=== PATIENT | female | born 2000 | race Caucasian/White ===

== ENCOUNTER 2023-01-25 09:49 | Emergency (ER) | payer BC, SELFPAY ==
[2023-01-25 09:50] VITALS: BP 113/82; PULSE 73; RESP 18; TEMP 36.6; O2SAT 99; BMI 21.4
--- NOTE | 2023-01-25 10:17 | CT_ITS ---
STUDY: CT BRAIN WITHOUT CONTRAST REASON FOR EXAM: Female, 22 years old. Severe headache RADIATION DOSAGE (If Supplied By Facility): CTDIvol = ( 47.06 ) mGy, DLP = ( 855.03 ) mGycm TECHNIQUE: Transaxial CT imaging of the brain was performed without administration of intravenous contrast material. Individualized dose optimization techniques were used for this CT. COMPARISON: No relevant priors. FINDINGS: Normal soft tissue structures. Normal calvarium. Normal size ventricles and extra-axial spaces for the patient''s age. Normal white matter tracts of the cerebral hemispheres. Normal basal ganglia and thalami. Normal brainstem. Normal cerebellum. There is no intracranial hemorrhage. There are no findings of an acute ischemic infarction. Normal visualized paranasal sinuses. CT/Brain/Head without Contrast IMPRESSION: Normal unenhanced CT scan of the brain. Electronically Signed: Pieter Dior MD at 11:04 EDT ,
--- NOTE | 2023-01-25 10:17 | EX.ED.VIS.HA ---
HPI History of Present Illness Chief Complaint: Headache Narrative Narrative: 22-year-old female with history of migraine headaches presenting with presumed migraine headache. She states that over the last month she has had increasing frequency and worsening severity of her headaches. She does see somebody from [facility] for her headaches. She has reported to them that her headaches are worsening now that she works third shift. She states that eating at different times of the day and her sleep style is giving her worsening headaches. She states that she has told her doctor that the sumatriptan is no longer working. She also states that since she has been placed on paroxetine she read somewhere that she not supposed to take sumatriptan with it. Patient does admit to photophobia and phonophobia. No fevers, chills, neck pain or stiffness. She had one episode of vomiting and feels nauseous. Denies any head trauma. [facility] Medical History Anxiety Migraine Home Medications ibuprofen 200 mg capsule 200 mg PO Q6H PRN 07/02/22 [History Last Taken Unknown] sumatriptan succinate 25 mg tablet See Rx Instructions PO .COMPLEX 07/02/22 [History Last Taken Unknown] Allergy/AdvReac Type Severity Reaction Status Date / Time citalopram [From Celexa] AdvReac Unknown UNKNOWN Verified 01/25/23 09:50 sertraline [From Zoloft] AdvReac Unknown UNKNOWN Verified 01/25/23 09:50 Family History Other Arthritis Cancer Hypertension Thyroid disorder Surgical History Hx of tonsillectomy Social History Smoking Status: Never smoker alcohol intake: never ROS ROS ED Constitutional Constitutional ED: Denies chills or fever(s) Eyes Eyes: Reports other Details: Photophobia ENT ENT ED: Reports other Details: Phonophobia Cardiovascular Cardiovascular: Denies chest pain Respiratory/Chest Respiratory/Chest: Denies cough or dyspnea Gastrointestinal Gastrointestinal: Reports nausea and vomiting; Denies abdominal pain Genitourinary Genitourinary ED: Denies dysuria or hematuria Musculoskeletal Musculoskeletal: Denies arthralgias Integumentary Denies abscess or Abrasions Neurologic Neurologic: Reports headache(s) Psychiatric Psychiatric: Reports anxiety and depression; Denies suicidal ideation or suicidal thoughts EXAM Physical Exam Const Vital Signs: 01/25/23 09:50 Temperature 97.8 F Temperature Source Temporal Pulse Rate 73 Respiratory Rate 18 Blood Pressure 113/82 H Blood Pressure Mean 92 Pulse Ox 99 Oxygen Delivery Method Room Air Positive well nourished General Appearance ED: NAD; Negative for pallor HEENT Reports normocephalic atraumatic Eyes PERRL and EOMs intact bilaterally Resp normal respiratory effort Auscultation: Negative for rales, rhonchi or wheezes Cardio regular rate and regular rhythm Extremity normal to inspection General Extremety ED: Negative for edema or tenderness General Extremity: Negative for edema Neuro oriented x3 and CN's II-XII intact bilaterally Stephen Coma Scale: document GCS findings Spontaneous Obeys Commands Oriented 15 Sensorium / Orientation: awake and alert Psych mental status grossly normal Skin General Skin Exam: Negative for jaundice or pallor MDM MDM MDM Narrative Medical decision making narrative: IV line was established. Patient given Reglan, Benadryl. I did obtain a CT of the brain because she states her headache is worse than usual and she has had repeated headaches this month. This was negative. She does believe it is due to her sleep schedule/work schedule. She has no focal neurologic deficits or lateralizing signs or symptoms. She does have photophobia, phonophobia. Patient given a liter of IV fluids as well. On reevaluation at 1225 she is doing well. She is resting comfortably here and she feels she can be discharged home. She states she will follow-up with her doctor for reevaluation. Return precautions were discussed. Impression: 1. Headache 2. Nausea Radiography Diagnostic Testing: Clinical Impression(s) from Imaging Studies Brain CT 01/25/23 10:17 IMPRESSION: Normal unenhanced CT scan of the brain. Electronically Signed: Pieter Dior MD at 11:04 EDT , Discharge Plan Triage Chief Complaint: Headache ED Provider: Avelino Pillai Dx/Rx/DC Orders Instructions: ED, Migraine (Classical) Prescriptions: No Action ibuprofen 200 mg capsule 200 mg PO Q6H PRN sumatriptan succinate 25 mg tablet See Rx Instructions PO .COMPLEX Rx Instructions: take 1 tab at onset of headache; if no relief may repeat 1 tab after at least 2 hrs; max = 4 tabs/24 hr PO Primary Care Provider: Care Physician,No Primary Referrals: Care Physician,No Primary [Primary Care Provider] - Disposition Disposition: Home, Self Care
[2023-01-25] MEDS: 0.9% Normal Saline 1,000 ML 999 ML IV (10:33)
[2023-01-25] MEDS: DiphenhydrAMINE 50 MG/ML Syringe 25 MG IV (10:34)
[2023-01-25] MEDS: Metoclopramide 10 MG/2 ML Vial IV (10:35)
[2023-01-25] MEDS: Ketorolac 15 MG/ML Vial IV (11:15)
== END 2023-01-25 12:40 | disposition home or self-care (01) ==
PROVIDERS: Emergency Provider Student in an Organized Health Care Education/Training Program; Visit Provider Student in an Organized Health Care Education/Training Program
DX: R51.9 Headache, unspecified (principal); R11.2 Nausea with vomiting, unspecified
CPT/HCPCS: 70450; 96374; 96375; 99283; A4216

== ENCOUNTER 2023-07-11 09:55 | Outpatient (RCR) | payer BC, SELFPAY ==
--- NOTE | 2023-07-11 10:00 | BH.COMM ---
Communication Note Communication with Client Communication Note: met with pt to complete initial paperwork. No significant changes since pre-admission screening. Completed [place] Suicide Screening. Low to moderate risk. Pt denies any active SI in the past 30 days, however reports frequent passive thoughts of and survival ambivalence. Protective factors. Future-oriented. Reports ability to keep self safe. Consulted with Dr. Bajwa with plan to admit to [facility] level of care with dx of F33.2
--- NOTE | 2023-07-11 10:10 | BH.SGPN.GN ---
Behaviors/Verbalizations/Mental Status: [] Eye contact is fair. Motor activity is appropriate. Appearance is casual. Speech is Appropriate. Mood is anxious. Affect is constricted. Thoughts are linear and logical. No evidence of psychosis. Client Response/Progress/Benefit: [] Client was an attentive during interactive group discussions by writing notes and sharing when prompted. Attentive during psychoeducation on the six types of boundaries (physical, emotional, intellectual, sexual, time, and material) AEB note-taking. Along with peers contributed to interactive discussion on defining what a boundary is in mental health. Client along with peers identified challenges to setting boundaries which included; fear of other's response, guilt, fear of losing relationships, and lack of confidence. Client along with peers identified the benefits to setting boundaries. Client shared she struggles with setting boundaries because she thinks to herself my boundaries haven't been respected before, why would it change?. Client benefited from increased awareness and insight on the importance/benefit to setting health boundaries. Will continue in IOP to improve daily functioning, increase healthy coping, and prevent decompensation.
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
[2023-07-13 09:44] VITALS: BP 119/73; PULSE 79
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
--- NOTE | 2023-07-13 12:02 | BH.DR.ITP ---
Initial Treatment Plan Patient Information Visit Information: ADMISSION DATE: EXPECTED LOS: 4-6 weeks Problems/Symptoms Problem #1:: Anxiety Symptom:: Worry, panic attacks, hypervigilance, flashbacks, nightmares, reexperiencing, avoidance Problem #2:: Depression Symptom:: Sadness, hopelessness, anhedonia, biological disruption of appetite and sleep, low energy, decreased concentration, passive thoughts of .
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
== END 2023-07-14 23:59 ==
LOC: BHIOP 09:55
PROVIDERS: Referring Provider Psychiatry & Neurology Psychiatry; Visit Provider Psychiatry & Neurology Psychiatry
DX: F33.2 Major depressive disorder, recurrent severe without psychotic features (principal); F43.10 Post-traumatic stress disorder, unspecified; F41.0 Panic disorder [episodic paroxysmal anxiety]; G43.909 Migraine, unspecified, not intractable, without status migrainosus; F50.2 Bulimia nervosa
CPT/HCPCS: S9480; 90853

== ENCOUNTER 2023-07-15 08:32 | Outpatient (RCR) | payer BC, SELFPAY ==
[2023-07-15 00:43] VITALS: BP 119/73; PULSE 79
--- NOTE | 2023-07-15 09:05 | BH.SGPN.GN ---
Behaviors/Verbalizations/Mental Status: [] Eye contact is good. Motor activity is appropriate. Appearance is casual. Speech is Appropriate. Mood is anxious. Affect is congruent. Thoughts are linear and logical. No evidence of psychosis. Reviewed daily check in sheet and no reports of suicidal ideations or intent. Client Response/Progress/Benefit: [] Pt participated at times during the group discussions. Attentive. Daily symptom tracker notes 2/5 for anxiety and depression, which is significant improvement from earlier this week. Emotion for today is steady at ease. She discussed stepping outside her comfort zone yesterday which proved to be very beneficial for her mental health. Notes decreased isolation, increased communication of her needs/struggles to support, and more social engagement. Insight on what coping strategies and skills were beneficial from yesterday and could be implemented in the future. Progress noted AEB by decreased isolation and self-report of improved mood. Benefited from group support, encouragment, and feedback. Will continue in IOP to prevent decompensation, increase healthy coping, and improve functioning. Narrative Note: []
--- NOTE | 2023-07-15 09:10 | BH.SGPN.GN ---
Behaviors/Verbalizations/Mental Status: [] Pt alert and oriented, neatly dressed and groomed. Eye contact good. Motor activity appropriate. Speech within normal limits. Affect congruent, mood anxious and proud. Thoughts linear, logical, no signs of hallucinations or delusions. Reviewed pt?s symptom tracker, no risk for suicidal ideation, plan, or intent 07/22/23 Client Response/Progress/Benefit: []Pt responded well to session, attentive and engaged. Pt reports feeling overwhelmed by proud this morning and per pt's daily symptom tracker, pt's depression has improved slightly today. Pt's mental health wins include asking for and accepting help more often and driving herself to IOP today. Pt is working with a ecommerce marketing manager through the courts and pt has found this to be very helpful as pt sparkle with ongoing legal stressors. Pt reported she has been ruminating a lot lately and pt wants to work on grounding herself. Pt appeared to benefit from connecting with peers and reflecting on her use of coping skills. Pt will continue IOP tx to prevent decompensation, improve daily functioning, and reduce negative thinking patterns. Narrative Note: []
--- NOTE | 2023-07-15 10:10 | BH.SGPN.GN ---
Behaviors/Verbalizations/Mental Status: []Pt alert and oriented, casually dressed and groomed. Eye contact fair. Motor activity appropriate. Speech within normal limits. Affect congruent, mood anxious. Thoughts linear, logical, no signs of hallucinations or delusions. Client Response/Progress/Benefit: [] Pt receptive to session AEB contributing to small group discussion, as well as listening attentively to others, and taking notes. Worked with group to brainstorm the positive and negative aspects of stress on physical and mental health. Group did well to identify the benefits of stress as well as the impact of distress on performance, relationships, and mental health. Pt identified their personal top stressors as: counseling, court, food, and trauma. Pt seemed to benefit from increased awareness of current stressors and impact stress has on mental health. Recommended to continue IOP tx to increase healthy coping, improve daily functioning, and prevent decompensation.
--- NOTE | 2023-07-15 11:15 | BH.SGPN.GN ---
Behaviors/Verbalizations/Mental Status: []Pt alert and oriented, casually dressed and groomed. Eye contact good. Motor activity appropriate. Speech within normal limits. Affect congruent, mood anxious. Thoughts linear, logical, no signs of hallucinations or delusions. Client Response/Progress/Benefit: []Pt was an active participant in group discussions and experiential activity. Attentive during psychoeducation on the 4 A's (Avoid, adapt, alter, accept) of coping with stress as well as strategies to identify stressors in which one has no control, little control, or a great deal of control over. Was able to identify the connection between the experimental activity and utilization of stress management skills. Pt reported feeling anxious during the activity and pt tried to withdraw, but when encouraged to participate despite anxiety, she did. Pt shared opposite action helped and pt was glad she tried. The group linked effective communication and opposite action as the biggest strategies for managing stressors. Benefited from increased awareness of stress management strategies. Will continue in IOP to prevent decompensation, improve daily functioning, and increase self-confidence. Narrative Note: []
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
--- NOTE | 2023-07-19 10:10 | BH.SGPN.GN ---
Behaviors/Verbalizations/Mental Status: [] Client alert and oriented, casually dressed and groomed. Eye contact fair. Motor activity appropriate. Speech within normal limits. Affect constricted, anxious and tired. Thoughts linear, logical, no signs of hallucinations or delusions Client Response/Progress/Benefit: [] Client was a mostly passive participant in large group discussion, however showed increased engagement in small group discussion and experiential activity. Attentive during psychoeducation on resilience. Participated in interactive discussion with peers on the definition of resilience and where it comes from. Group identified what can impact resilience. Identified barriers to resilience to include: extreme thinking, outside comfort zone, learned helplessness, and repeated traumas/hardships. Worked well with peers in small group in which they identified factors that contribute to resilience. Benefited from increased awareness of resilience and the factors that contribute to building resilience. Will continue in IOP to increase confidence, challenge negative thinking, and prevent decompensation.
--- NOTE | 2023-07-19 11:10 | BH.SGPN.GN ---
Behaviors/Verbalizations/Mental Status: []Pt alert and oriented, casually dressed and groomed. Eye contact good. Motor activity appropriate. Speech soft. Affect constricted, mood anxious. Thoughts linear, logical, no signs of hallucinations or delusions. Client Response/Progress/Benefit: []Pt responded well to session AEB completing the resilience worksheet provided. Pt actively participated in the discussion and worked cooperatively with group to identify strategies to enhance each of the components discussed. Pt reports belief they already use resilience trait of ?making connections? which pt shared helps her feel not alone or crazy. Pt discussed that they could work on keeping things in perspective and nurturing a positive view of self.? Pt seemed to benefit from discussing strategies for improving personal resilience and identifying resilience traits Pt already possesses. Will continue IOP tx prevent decompensation, improve daily functioning, and increase self-compassion. Narrative Note: []
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
--- NOTE | 2023-07-20 09:01 | BH.SGPN.GN ---
Behaviors/Verbalizations/Mental Status: []Pt alert and oriented, casually dressed and groomed. Eye contact fair. Motor activity appropriate. Speech within normal limits. Affect congruent, mood anxious. Thoughts linear, logical, no signs of hallucinations or delusions. Reviewed pt?s symptom tracker, no suicidal ideation reported, denies plan, or active intent. Client Response/Progress/Benefit: []Pt responded well to session, open to processing with group and engaged. Pt reported mental health positive as getting up today and making it to IOP despite having thoughts of not coming. Pt stated additional mental health win as making a floating bed frame with her. Pt stated she finally slept on a bed last night and noticed improvement in her rest. Pt stated she is struggling today because court is happening and she isn't sure what the result will be. Pt stated she feels like anytime she starts to move forward something from her past gets brought back up which can make her go several steps back. Pt stated she's trying to focus on what's in her control today. Pt appeared to benefit from supportive feedback of the group, as well as reflecting on mental health wins. Pt will continue IOP tx to continue use of healthy coping skills, challenge negative thoughts, improve confidence, and prevent decompensation.
--- NOTE | 2023-07-20 10:10 | BH.SGPN.GN ---
Behaviors/Verbalizations/Mental Status: [] Eye contact is good. Motor activity is appropriate. Appearance is casual. Speech is Appropriate. Mood is anxious. Affect is congruent. Thoughts are linear and logical. No evidence of psychosis. Client Response/Progress/Benefit: [] Client responded well to session, attentive to discussions, taking notes. Attentive during psychoeducation about social and perceived stigma. Participated during interaction discussions in which group defined stigma and identified the impact that social stigma and self stigma can have on an individual. Pt provided examples of stigma impacted her and prevent her from healthy relationships, feeling good, and believing in myself. Stigma often led her to tell herself I'm crazy, will never be happy, don't' deserve love, and I'm fragile. Client seemed to benefit from increased awareness of how mental health stigma can impact progress and self-worth. Will continue in IOP to prevent decompensation, maintain safety, increase healthy coping, and improve functioning. Narrative Note: []
--- NOTE | 2023-07-20 11:12 | BH.SGPN.GN ---
Behaviors/Verbalizations/Mental Status: []Client alert and oriented, casually dressed and groomed. Eye contact good. Motor activity appropriate. Speech within normal limits. Affect congruent, mood anxious and depressed. Thoughts linear, logical, no signs of hallucinations or delusions. Client Response/Progress/Benefit:?[] Client engaged participant AEB participating in the activity, providing input during small group discussion, and listening attentively to others. Client appeared to connect with discussion in the benefits of addressing mental health stigma which included: improved relationships, increased willingness to seek help, increased happiness, and improved confidence. Group brainstormed strategies to combat social and perceived stigma. ?Client shared one thing she can personally do to combat stigma is to remind herself she is not alone in struggling with her mental health. Appeared to benefit from increasing awareness of strategies to combat stigma. Will continue IOP tx to continue to reduce anxiety, improve emotion regulation and prevent decompensation. Narrative Note: []
--- NOTE | 2023-07-22 10:15 | BH.SGPN.GN ---
Behaviors/Verbalizations/Mental Status: []Pt alert and oriented, casually dressed and groomed. Eye contact good. Motor activity appropriate. Speech within normal limits. Affect congruent, mood depressed, anxious. Thoughts linear, logical, no signs of hallucinations or delusions. Client Response/Progress/Benefit: []Pt receptive of session, actively engaged throughout AEB taking notes and listening to discussion. Appeared to connect with group topic of cognitive distortions and the impact of thought patterns on mental health, coping behaviors, and relationships. Pt reports connecting with distortions of jumping to conclusions, overgeneralization, labeling, and emotional reasoning. Pt stated she struggles with negative labels based on negative core beliefs and past toxic relationships, which then maintain depression and anxiety. Pt appeared to benefit from gaining insight on distorted thinking patterns and how this impacts overall mental health. Will continue IOP tx to improve self-esteem, increase healthy coping, and prevent decompensation. Narrative Note: []
--- NOTE | 2023-07-22 11:15 | BH.SGPN.GN ---
Behaviors/Verbalizations/Mental Status: [] Eye contact is good. Motor activity is within normal limits. Appearance is casual. Speech is Appropriate. Mood is depressed and anxious. Affect is congruent. Thoughts are linear and logical. No evidence of psychosis. Client Response/Progress/Benefit: [] Pt was an active participant during group discussions and activity. Pt was placed in a smaller group and participated in quiz-show format in which small groups competed against each-other to answer questions based on identifying, challenging, and reframing cognitive distortions. Pt was engaged in the smaller group, participated in group interactions to brainstorm answers, and appeared to be comprehending cognitive distortions. Stated learning that ?disqualifying the positive leads me to continue to struggle with thinking I'm not good enough or don't deserve things?. Benefited from gaining further insight and awareness of cognitive distortions as well as practicing ways to reframe and challenge thoughts. Will continue in IOP to improve self-worth, stabilize mood, and increase healthy coping skills. Narrative Note: []
--- NOTE | 2023-07-26 09:05 | BH.SGPN.GN ---
Behaviors/Verbalizations/Mental Status: [] Eye contact is good. Motor activity is appropriate. Appearance is casual. Speech is Appropriate. Mood is anxious. Affect is congruent. Thoughts are linear and logical. No evidence of psychosis. Reviewed daily check in sheet and no reports of suicidal ideations or intent. Client Response/Progress/Benefit: [] Pt participated at times during the group discussions. Attentive. Emotion for today is happy. Pt reports that she is very proud of herself. She was able [place] the [place] and has been consistent with treatment and medication. She believes that she is beginning to see the benefits as well. Decreased isolation, ruminations, and anxiety. Also discussed challenging mental health stigma associated with being in treatment and taking medications. When you are prescribed medications for mental illness its gets real. In the past developed distortions that if she wasn't on medications than she didn't struggle with mental illness. In recent days has begun to accept her diagnosis. Progress noted per pt report AEB by decreased anxiety and isolation. Benefited from group support, encouragement, and feedback. Will continue in IOP to maintain safety, stabilize mood, increase healthy coping, and improve functioning. Narrative Note: []
--- NOTE | 2023-07-26 10:20 | BH.SGPN.GN ---
Behaviors/Verbalizations/Mental Status: []Pt alert and oriented, casually dressed and groomed. Eye contact good. Motor activity appropriate. Speech within normal limits. Affect congruent, mood anxious and euthymic. Thoughts linear, logical, no signs of hallucinations or delusions. Client Response/Progress/Benefit: []Pt was an active participant, AEB taking notes and providing input in group discussions and activities. Attentive during psychoeducation. Pt engaged during interactive discussion in which the group defined self-care and discussed its benefits. Group discussed barriers to engaging in self-care. Pt identified personal barrier of telling herself that she doesn't deserve it or that self-care is selfish which keeps pt from practicing self-care. Pt participated in small groups where they worked to identify common self-care ?myths?. Benefited from increased awareness of self-care, its benefits, and the consequences of not utilizing self-care strategies. Will continue IOP tx to prevent decompensation, promote positive self-talk, and continue to improve mood stability. Narrative Note: []
--- NOTE | 2023-07-26 11:15 | BH.SGPN.GN ---
Behaviors/Verbalizations/Mental Status: []Pt alert and oriented, neatly dressed and groomed. Eye contact good. Motor activity appropriate. Speech within normal limits. Affect congruent, mood anxious and euthymic. Thoughts linear, logical, no signs of hallucinations or delusions. Client Response/Progress/Benefit: [] Pt engaged participant AEB completing self-assessment worksheet and providing input throughout discussion. Pt completed worksheet identifying current self-care practices and what self-care activities pt wants to start using. Pt selected psychological self-care to begin practicing more consistently. Pt plans to do this by setting a time limit for snapchat and TV shows. Appeared to benefit from completing the self-care evaluation and gaining insights into current self-care practices, as well as identifying areas in which pt would like to improve upon.? Pt will continue IOP tx to prevent decompensation, improve emotional regulation skills, and increase self-confidence. ? Narrative Note: []
--- NOTE | 2023-07-27 09:05 | BH.SGPN.GN ---
Behaviors/Verbalizations/Mental Status: []Pt alert and oriented, casually dressed and groomed. Eye contact good. Motor activity appropriate. Speech within normal limits. Affect congruent, mood dysthymic and anxious. Thoughts linear, logical, no signs of hallucinations or delusions. Reviewed pt?s symptom tracker, no suicidal ideation reported, denies plan, or active intent as of 07/27/23. Client Response/Progress/Benefit: [] Pt responded well to session, open to processing with group and engaged. Pt reports feeling hopeful this morning. Shared her current mental health wins included making time for self-care and getting her hair trimmed. Additional win noted as more consistently reaching out to healthy supports. Shared taking time to connect with supports has helped with reducing negative thoughts and improving her overall mood. Went on to discuss current stressor as feeling as though she doesn't deserve to start feeling happy again and is struggling with a sense of waiting for the other shoe to drop. Receptive of group support and fellow participants describing their own struggles with similar thoughts/emotions. Connected with some of the skills provided by other group members to combat these distortions. Pt appeared to benefit from supportive feedback of the group, as well as reflecting on mental health wins. Pt will continue IOP tx to promote mood stability, continue to encourage skill application for anxiety management, as well as continue to improve functioning. Narrative Note: []
--- NOTE | 2023-07-27 11:15 | BH.SGPN.GN ---
Behaviors/Verbalizations/Mental Status: []Pt alert and oriented, neatly dressed and groomed. Eye contact good. Motor activity appropriate. Speech within normal limits. Affect congruent, mood anxious. Thoughts linear, logical, no signs of hallucinations or delusions. Client Response/Progress/Benefit: [] Pt was an active participant AEB providing input and was actively taking notes. Connected with the topic of pitfalls and listened to group discussion on internal and external barriers that prevent from choosing a healthier path to mental wellness. Group worked together to identify examples of personal internal pitfalls and pt identified theirs as lack of self-care, isolation, negative self-talk, and holding back emotions. Pt benefited from group as Pt learned to better identify and normalize potential barriers to improving mental health symptoms. Pt did well during the activity, reporting feeling stressed, but practiced healthy coping skills. Pt will continue IOP tx to prevent decompensation, further reduce negative thinking patterns, and improve self-confidence. Narrative Note: []
--- NOTE | 2023-07-27 11:20 | BH.SGPN.GN ---
Behaviors/Verbalizations/Mental Status: []Pt alert and oriented, casually dressed and groomed. Eye contact fair. Motor activity appropriate. Speech within normal limits. Affect congruent. Mood anxious. Thoughts linear, logical, no signs of hallucinations or delusions. Client Response/Progress/Benefit: []Pt was an active participant AEB contribution to discussion, taking notes, and willingness to engage in group activity. Connected with the topic of pitfalls and listened to group discussion on internal and external barriers that prevent from choosing a healthier path to mental wellness. Group worked together to identify examples of internal pitfalls. Pt identified personal pitfalls. Pt reported wanting to work on pitfall of holding back emotions. Pt identified strategies that can help her to include: self help journals and books, using happy colors stickers, talking to those close about how she feels, acceptance of her feelings, and reminding self she's not alone. Pt benefited from group as pt learned to better identify and normalize potential barriers to improving mental health symptoms. Pt to continue IOP to increase healthy coping skills, challenge distortions, and prevent decompensation.
--- NOTE | 2023-07-27 12:35 | PCM.BH.PN_ITS ---
Progress Note Progress Note: History of Present Illness/Interim History: The patient is a 22-year-old female single with a history of anxiety and depression who is seen in follow- up at the [facility]. I last saw the patient 2 weeks ago and at that time Paxil was started to help with her depression and anxiety. Patient is tolerating the Paxil well. She feels she is learning valuable skills in the IOP program and is benefiting from it. She feels more alive and states that people around her have noticed that she is better also. Her sleep is also much better and if she is getting a good 6 hours of sleep a night. She is having some flashbacks from her prior trauma which does call or cause her to feel panicked but they are happening less often than before. She has had much less passive thoughts that she would not care if she . She denies plan for suicide, suicidal ideation, homicidal ideation, hallucinations or delusions. She has been able to function much better and drove herself to the fair and was able to try ax throwing which she was too anxious to try before. She was also able to reach up to an old friend and reconnect. Current Psychiatric Medications: [] Paxil 10 mg p.o. daily (x2 weeks); hydroxyzine 20 fill 5 mg p.o. as needed for panic attacks; hydroxyzine 50 mg p.o. nightly. Mental Status Examination: [] The patient is a 22-year-old female who appears normal for stated age and has her hair dyed red in part. She is ambulatory with a normal gait and is casually dressed and groomed with good hygiene. She has no psychomotor agitation or retardation. Eye contact is good and speech is normal rate and rhythm and fluent with no pressure. Mood is mildly depressed and anxious. Affect is full and normal. Thought process is goal-directed and organized. Thought content: There is evidence of passive thoughts of only on occasion now. There is no evidence of plan for suicide, suicidal ideation, homicidal ideation, hallucinations or delusions. The patient is hopeful for the future. Reality testing is intact. Judgment is intact. Insight is good. Impulsivity is moderate. Diagnoses: [] 1. Major depressive disorder, recurrent, severe without psychosis (improving) 2. PTSD 3. Panic disorder 4. Migraine headaches 5. History of bulimia nervosa 6. Support and work issues Plan: [] The patient will continue the IOP program at [facility] as the structure, support, education and group therapy will hopefully prevent worsening of the patient's symptoms. She felt safe during the interview and if it anytime she does not feel safe she will let us know or go to the emergency room. No medication changes were made today as the patient has only been taking the Paxil for 2 weeks. The patient will continue to follow-up with her outpatient providers and I will see the patient in follow-up in 2 weeks.
--- NOTE | 2023-07-29 09:44 | BH.COMM ---
Communication Note Communication with Client Communication Note: Pt scheduled for individual and group therapy on this date however did not show or call to cancel. Pt phone went straight to voicemail when attempting to follow-up. A discreet message was left encouraging her to reach out.
--- NOTE | 2023-07-29 10:38 | BH.COMM ---
Communication Note Communication with Client Communication Note: Pt called to follow-up on missing IOP group today. Stated she took her medication later than usual and believes this caused her to oversleep. Shared feeling lightheaded as well and does not feel comfortable driving. Reports plans to rest some more today and attend IOP group on Tuesday. Will continue to monitor if pt has ongoing sx and address as needed.
--- NOTE | 2023-08-01 08:56 | BH.COMM ---
Communication Note Communication with Client Communication Note: Pt scheduled for group and individual sessions on this date however did not show or call to cancel. Therapist attempted to reach out but pt did not answer. A message was left encouraging pt to return this therapist's call.
--- NOTE | 2023-08-02 10:15 | BH.SGPN.GN ---
Behaviors/Verbalizations/Mental Status: []Pt alert and oriented, casually dressed and groomed. Eye contact good. Motor activity appropriate. Speech within normal limits. Affect congruent, mood depressed. Thoughts linear, logical, no signs of hallucinations or delusions. Client Response/Progress/Benefit: [] Pt engaged in session AEB listening attentively to others and providing insight to group discussion. Pt engaged in activity, able to connect how it can be uncomfortable and difficult to accept when things are out of one?s own control. Pt worked with group to identify what things in life can be hard to accept. Group identified things hard to accept as: of a loved one, body image, loss of relationship, mental health diagnosis, other?s behaviors, and past decisions. Pt worked on identifying what personal things are hard to accept such as ?knowing I don?t treat myself right? and being wrong. Pt seemed to benefit from increased awareness of importance of acceptance. Pt to continue IOP to improve mood stability, increase self-confidence, and improve daily functioning. Narrative Note: []
--- NOTE | 2023-08-02 11:15 | BH.SGPN.GN ---
Behaviors/Verbalizations/Mental Status: []Pt alert and oriented, casually dressed and groomed. Eye contact fair to good. Motor activity appropriate. Speech within normal limits. Affect congruent, mood anxious and depressed. Thoughts linear, logical, no signs of hallucinations or delusions. Client Response/Progress/Benefit: []Pt responded well to session AEB taking notes and contributing to discussion throughout. Pt engaged as group continued discussion on acceptance and the mental health benefits of practicing acceptance. Pt and peers identified what makes acceptance challenging and pt completed a self-reflection exercise on what is hard to accept in pt's life. Pt identified struggling to accept My parents/family for who they are? Group identified strategies to increase acceptance and pt shared wanting to focus on practicing giving herself credit for small steps she is making as well as utilizing dialects to aid in accepting complicated emotions about family. Pt appeared to benefit from gaining insight and learning strategies to increase acceptance. Pt will continue IOP tx to promote mood stability, continue to combat distortions, and prevent decompensation. Narrative Note: []
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
--- NOTE | 2023-08-03 09:05 | BH.SGPN.GN ---
Behaviors/Verbalizations/Mental Status: [] Pt alert and oriented, neatly dressed and groomed. Eye contact good. Motor activity appropriate. Speech within normal limits. Affect congruent, mood euthymic. Thoughts linear, logical, no signs of hallucinations or delusions. Reviewed pt?s symptom tracker, no risk for suicidal ideation, plan, or intent 08/03/23 Client Response/Progress/Benefit: []Pt responded well to session, attentive and engaged. Pt reports feeling relieved this morning, sharing that she was reminded today that my co-workers really do love and care about me. Pt also stated that her mother was cheerful today and put pt in a good mood before coming to IOP this morning. Pt also woke up early and got to IOP on time which reduced anxiety. Pt's stressor today is how happy I feel as pt struggles with negative thinking patterns and believes that if she is happy, something bad will happen to change that. Group provided pt with encouragement to challenge these thoughts. Pt reports benefitting from using opposite action lately. Pt appeared to benefit from reflecting on application of skills. Pt will continue IOP tx to reduce negative thinking patterns that reinforce anxiety and depression, increase self-esteem, and improve daily functioning. Narrative Note: []
--- NOTE | 2023-08-03 10:10 | BH.SGPN.GN ---
Behaviors/Verbalizations/Mental Status: []Pt alert and oriented, appropriate grooming/appearance. Eye contact good. Motor activity appropriate. Speech within normal limits. Affect congruent, mood euthymic and anxious. Thoughts linear, logical, no signs of hallucinations or delusions. Client Response/Progress/Benefit: []Pt was an active participant in group discussions. Attentive during psychoeducation. Contributed during interactive discussions in which peers attempted to define crisis. Pt identified examples of potential crisis. Group also worked together to identify unhealthy responses to crisis which included; isolation, self-harm, substance abuse, avoidance, and distraction. Pt identified personal warning signs as isolation, procrastination, and laying in bad for long periods of time. Benefited from increased understanding of crisis and awareness of personal responses to crisis. Pt will continue IOP tx to prevent decompensation and continue to promote healthy skill application and communication with supports, as well as use of thought challenging skills. Narrative Note: []
--- NOTE | 2023-08-03 11:10 | BH.SGPN.GN ---
Behaviors/Verbalizations/Mental Status: [] Eye contact is good. Motor activity is appropriate. Appearance is casual. Speech is Appropriate. Mood is euthymic. Affect is congruent. Thoughts are linear and logical. No evidence of psychosis. Client Response/Progress/Benefit: [] Pt was an active participant in group discussions. Attentive during psychoeducation. In small group pt along with peers developed an active plan for their crisis warning signs. Pt identified three crisis warning signs as well as an action plan for each. One crisis warning sign is procrastination with an actions plan that involved: being proactive, prepared the night before such as lay out outfits, evaluate her routine, and journaling. Other warning sign was laying in bed with an action plan that involved: opposite action, do something with her pets, set a schedule, and communicate how she feels. Benefited from increased awareness of crisis warning signs and by developing crisis intervention strategies. Will continue in IOP to continue to utilize healthy coping, challenge negative thoughts, and prevent decompensation.
--- NOTE | 2023-08-03 11:59 | PCM.BH.PN_ITS ---
Progress Note Progress Note: And history of Present Illness/Interim History: The patient is a 22-year-old female who is seen in follow-up at the [facility]. I last saw the patient 1 week ago. The patient requested to be seen as she feels that although she had initial improvement in her mood on the Paxil that these changes have plateaued and she is starting to go back to feeling depressed and more anxious. She is tolerating the Paxil well. Sleep remains good at about 6 hours or 7 of sleep at night. She is having some passive thoughts that she would not care if she . She denies plan for suicide, suicidal ideation, homicidal nation, hallucinations or delusions. She is functioning better overall and fe els she is benefiting from the program. Current Psychiatric Medications: [] Paxil 10 mg p.o. daily (x3 weeks); hydroxyzine 25 mg, 1 p.o. as needed for panic attacks. The patient can take 2 to help her sleep but she states that she feels too tired if she takes 50 mg so usually takes 25 mg at bedtime to help with sleep. Mental Status Examination: [] Patient is a 22-year-old female who appears normal for stated age and has part of her hair dyed red. She is casually dressed and groomed with good hygiene and ambulatory with a normal gait. She has no psychomotor agitation or retardation. Eye contact is good and speech is normal rate and rhythm and fluent with no pressure. Mood is mildly depressed and anxious. Affect is full and normal. Thought process is goal- directed and organized. Thought content: There is evidence of passive thoughts of on occasion. There is no evidence of plan for suicide, suicidal ideation, homicidal ideation, hallucinations or delusions. Reality testing is intact. Judgment is intact. Insight is good. Impulsivity is moderate. Diagnoses: [] 1. Major depressive disorder, recurrent, severe without psychosis 2. PTSD 3. Panic disorder 4. Migraine headaches 5. History of bulimia nervosa 6. Primary support and work issues Plan: [] The patient will continue the IOP program at [facility] as the structure, support, education and group therapy will hopefully prevent worsening of the patient's symptoms. She felt safe during the interview and if it anytime she does not feel safe she will let us know or go to the emergency room. The patient is agrees to increase her Paxil to 20 mg p.o. daily and prescription is sent in for this. She understands the risk, complications possible, options and possible side effects and accepts these. She will continue to follow-up with her outpatient providers and I will see her in follow-up in several weeks.
--- NOTE | 2023-08-04 08:58 | BH.TPR ---
Treatment Plan Review Demographics Date of Admission:: 07/11/23 Date of Treatment Plan Review:: 08/03/23 Admitting Diagnoses:: 1. Major depressive disorder, recurrent, severe without psychosis (improving) 2. PTSD 3. Panic disorder Current Diagnoses:: 1. Major depressive disorder, recurrent, severe without psychosis (improving) 2. PTSD 3. Panic disorder Patient Status Patient's Response to Treatment:: Attends treatment semi-consistently, though has no-showed twice due to struggling with apathy and low motivation to get out of bed. Pt is making some strides in improving consistency with attendance, however. When in attendance, pt is actively engaged in treatment and reports completing homework outside of group. Pt actively engages in group discussion and provides supportive feedback to fellow participants. Pt reports some progress since entering [facility], specifically in willingness to learn and implement new skills, challenge her perspective, and speak more kindly to herself. She has been able to more easily utilize healthy means of coping and ask for help when needing support rather than isolating and avoiding others. Status of Current Problems and Symptoms: Pt completed DSM outcome measurement which showed an overall 32% symptom reduction. Domain for depression reduced by 17%, and irritability has reduced by 50%. Anxiety reduction of 25% and feelings of detachment have reduced by 75%.. Reports improved ability to identify and begin working towards setting healthy boundaries, advocating for herself, and communicating her needs with supports. She would like to continue to improve this. Reports decreased panic and some improvement in sense of confidence, hopefulness, and desire to engage in activities she has previously enjoyed since beginning the [facility] tx program. Pt does report difficulties with consistency, ongoing body dysmorphic thoughts, as well as significant negative core beliefs. Progress Problem #1: Problem Name:: Anxiety, panic Status of Goals:: Objective 1: Complete with continue progress encouraged. Pt has seen a 25% reduction in anxiety sx and is able to identify several triggers for her anxiety and panic; however, pt struggles with consistent skill application when experiencing these triggers. Pt continues to engage in avoidance and reassurance seeking safety behaviors which may be contributing to limited progress as well. Objective 2: Continued progress encouraged. Pt is able to identify some of her distorted thought patterns which maintain her anxiety, though she has significant difficulties in independently challenging and replacing distortions. Pt is working on using affirmations and self-compassion to continue to address this as well. Team Recommendations:: Continue with current tx goals with ongoing focus on affirmations and positive self-talk Problem #2: Problem Name:: Depression, isolation, worthlessness Status of Goals:: Objective 1: Progress with ongoing work encouraged. Pt has seen a 17% reduction in depressive sx. however, continues to struggle with consistent implementation of skills she has learned. Pt is able to identify several healthy coping skills for better managing sx of depression though her negative core beliefs often prevent pt from actively implementing them as she reports feeling she does not deserve to feel better. Objective 2: Pt has made some progress with reaching out to supports and reducing isolative behaviors. She has successfully attended the fair with her sister as well. Pt would benefit from continuing to improve socialization. Team Recommendations:: Continue with current tx goals with ongoing focus on applying behavior activation skills to reduce resistance of skill application.
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
--- NOTE | 2023-08-05 10:10 | BH.SGPN.GN ---
Behaviors/Verbalizations/Mental Status: []Eye contact is fair. Motor activity is appropriate. Appearance is casual. Speech is Appropriate. Mood is anxious and euthymic. Affect is congruent. Thoughts are linear and logical. No evidence of psychosis. Client Response/Progress/Benefit: []Pt participated during the group discussion. Attentive during psychoeducation and actively engaged during experiential activity. Participated during interactive discussion on aspects of fixed mindset. Group identified several aspects of fixed mindset which include: inflexible, belief that one cannot grow, absolute thinking, and all of one's skills, traits, and behaviors can't change. Group identified personal examples of fixed thinking in which pt shared personal fixed thoughts as: I can't do that, If I mess up I'm not good enough and I'm just too stupid. Benefited from increased understanding of personal fixed mindsets and how they can impact mental health. Will continue in IOP to improve confidence, increase consistent use of healthy coping skills, and prevent decompensation.
--- NOTE | 2023-08-05 11:15 | BH.SGPN.GN ---
Behaviors/Verbalizations/Mental Status: []Pt alert and oriented, neatly dressed and groomed. Eye contact good. Motor activity appropriate. Speech within normal limits. Affect congruent, mood euthymic. Thoughts linear, logical, no signs of hallucinations or delusions. Client Response/Progress/Benefit: []Pt was an active participant during activity and discussion AEB providing some input, connecting with peers, as well as taking notes throughout. Pt did well to engage as group worked on identifying characteristics and benefits of adopting a growth mindset. Worked with fellow participants in reframing the example fixed thoughts into growth mindset thoughts. Pt worked on changing own fixed thought of ?I'm not good enough? to growth thought of ?other people might be smarter or prettier, but I have things to offer.? Benefitted from discussing benefits of growth mindset and brainstorming strategies for prompting growth-mindset. Pt appeared to benefit from working in small groups to challenge own thoughts and help peers. Pt will continue IOP tx to promote use of healthy coping skills, increase self-confidence, and combat distorted thinking patterns. Narrative Note: []
--- NOTE | 2023-08-09 10:08 | BH.SGPN.GN ---
Behaviors/Verbalizations/Mental Status: []Pt alert and oriented, neatly dressed and groomed. Eye contact good. Motor activity appropriate. Speech within normal limits. Affect congruent, mood euthymic. Thoughts linear, logical, no signs of hallucinations or delusions. Client Response/Progress/Benefit: [] Pt was an active participant in group discussions. Attentive during psychoeducation on 4 types of conflict styles (Competing, Collaborating, Avoiding, and Accommodating). Worked with group to define conflict and identify how conflict is helpful. With peers identified barriers to addressing or managing conflict which included: not wanting to hurt others, lack of communication skills, and cognitive distortions. Pt believes they use the accommodating and avoiding styles the most. Pt shared she is slowly gaining more confidence and reminding herself that she can address things face on. Benefited from group due to increase insight and awareness of benefits to conflict, conflict styles, and obstacles to managing conflict. Will continue in IOP to reduce negative thinking patterns, improve distress tolerance skills, and improve mood stability. Narrative Note: []
--- NOTE | 2023-08-09 11:05 | BH.SGPN.GN ---
Behaviors/Verbalizations/Mental Status: []Pt alert and oriented, neatly dressed and groomed. Eye contact good. Motor activity appropriate. Speech within normal limits. Affect congruent, mood euthymic. Thoughts linear, logical, no signs of hallucinations or delusions. Client Response/Progress/Benefit: [] Pt was an active participant in group discussions and activity. Attentive during psychoeducation. Along with peers was able to reflect on what conflict resolution skills can be useful outside of IOP. Pt chose to continue to work on the conflict resolution skills of ?no stonewalling? and asserting her needs specifically for the rest of the week. Benefited from practicing and learning conflict resolution skills. Will continue in IOP to promote gains, increase mood stability, and reduce negative thinking patterns. Narrative Note: []
--- NOTE | 2023-08-10 09:00 | BH.SGPN.GN ---
Behaviors/Verbalizations/Mental Status: [Patient was withdrawn and appeared unfocused, casually dressed and groomed. Little to no eye contact, motor activity normal, patient did not speak. Affect congruent, mood withdrawn. Thought process unclear. Reviewed Patients symptom tracker which the patient rated themselves as being low in self-harm urges, moderate for anxiety/panic attacks, agitation/irritability/anger, and within baseline having thoughts of suicide, and moderate /severe for depressed mood. However, they rated themselves as not having a risk of suicide. ] Client Response/Progress/Benefit: [Patient declined to participate in group. This is unusual for this patient as they normally contribute. The patient will be monitored for any additional adverse symptoms. Patient met with an individual therapist for further assessment. Patients will continue with IOP treatment to promote mood stability, improve distress tolerance, and continue to improve functioning. ] Narrative Note: []
--- NOTE | 2023-08-10 10:00 | BH.SGPN.GN ---
Behaviors/Verbalizations/Mental Status: [] Eye contact is good. Motor activity is appropriate. Appearance is casual. Speech is Appropriate. Mood is depressed. Affect is constricted. Thoughts are linear and logical. No evidence of psychosis. Client Response/Progress/Benefit: []Pt initially less engaged compared to other sessions. With encouragement from therapist showed increased engagement in discussions. Attentive during psychoeducation and provided insight into obstacles in the way of mental wellness. Pt shared with group current mental health reality and desired mental health reality. Stated coming to IOP and challenging thoughts as steps she is currently making to get closer to desired reality. Identified barriers to desired reality include: negative thoughts, avoidance, and low self-esteem. Benefited from taking look at current mental health state and obstacles for progress. Pt to continue IOP to improve distress tolerance, increase consistent use of healthy coping skills, challenge distortions, and prevent decompensation.
--- NOTE | 2023-08-10 11:20 | BH.COMM ---
Communication Note Communication with Client Communication Note: This nurse talked with client at this time about her side effects from medication over the weekend. Client states she took 20mg of Paxil for 3 days over the weekend and felt nauseous, more tired, unmotivated and just out of it. Client states she went back down to taking just 10mg after those 3 days. Client states her menses did start also at this time. Client states for the past 2 weeks, her appetite has been very low and she eats minimal snacks through the day and usually no meals. Client reports she had in the past some right sided face numbness/tingling while on a medication before coming to this program that she went off of for that reason, but states she has some right sided face numbness/tingling under her eye at times. Discussed client's symptoms and complaints with Dr. Bajwa. Counseling client after a discussion with Dr. Bajwa to keep taking Paxil at 20mg daily and it should help with her appetite. Client is to see her PCP if numbness under right eye does not improve or gets worse. Client voices understanding of same.
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
--- NOTE | 2023-08-12 09:00 | BH.SGPN.GN ---
Behaviors/Verbalizations/Mental Status: [Patient was alert and oriented, casually dressed and groomed. Eye contact was poor, motor activity normal, speech within normal limits. Affect congruent, mood content. Thoughts linear, logical, no signs of hallucinations or delusions. Reviewed Patients symptom tracker and the patient rated all categories within normal limits.] Client Response/Progress/Benefit: [ Patient was engaged and open to the discussion. Patient reports her mood to be ?better and cheerful?. Patient?s first mental health win was she cleaned the whole house the day prior. Patient stated this made her feel satisfied.? Patients second mental health win was she sat in the bath and relaxed for a few hours. Patient noted that this made her uncomfortable because their bathtub is in the basement right now, but that it was nice. Patient was not doing well the day before and stated she was able to help herself by doing self-care, talking it out, and reflection. Patient shared that part of the reason she was upset was because her environment has been negative. Patient stated she told her parents how they were acting was affecting their mood and mind set and they have adjusted some of their behaviors. Patient described her stressor being that she is waking up a lot when she sleeps and is frustrated with her medicine. Patient is managing these feelings by reminding herself to give the medicine more time to take effect. Patient was interactive and respectful with other group members about their mental wins and stressors. Patient benefited from the discussion by listening to feedback and giving input on her peer?s stressors and mental health wins. Patient will continue with IOP treatment to promote mood stability, improve distress tolerance, and continue to improve functioning. ] Narrative Note: []
--- NOTE | 2023-08-12 09:00 | BH.SGPN.GN ---
Behaviors/Verbalizations/Mental Status: [] Eye contact is good. Motor activity is appropriate. Appearance is casual. Speech is Appropriate. Mood is anxious. Affect is constricted. Thoughts are linear and logical. No evidence of psychosis. Reviewed daily check in sheet and no reports of suicidal ideations or intent. Client Response/Progress/Benefit: [] Pt participated at times during the group discussion. Attentive. Client reported mental health positive as getting chores and cleaning done yesterday. Client reported additional mental health positive as taking time to relax. Stated practicing relaxation is challenging, but she recognizes the benefits of doing so. Client stated her stressor is adjusting to her sleep medication which has been negatively impacting her sleep. Stated her sleep is very disrupted which does impact mood and energy throughout her day. Progress noted with client using opposite action to clean. Benefited from group support, encouragement, and feedback. Will continue in IOP to prevent decompensation, challenge negative thoughts, increase healthy coping, and prevent decompensation.
--- NOTE | 2023-08-12 10:15 | BH.SGPN.GN ---
Behaviors/Verbalizations/Mental Status: [] Eye contact is good. Motor activity is appropriate. Appearance is casual. Speech is Appropriate. Mood is anxious. Affect is congruent. Thoughts are linear and logical. No evidence of psychosis. Client Response/Progress/Benefit: [] Pt did not participate in group discussions. Attentive during psychoeducation. Attentive during group discussion on types of support, benefits of support, and obstacles to utilizing support. Pt reports their primary supports are pets, family, adventism, IOP, [employer], car rides, journaling, baking, and nature. Obstacles that presser machine the way to utilizing support were noted to be fear of being vulnerable, PTSD, lack of motivation, stubbornness, isolation, and unrealistic expectations of myself. Participated in experiential activity and was able to connect this activity to group topic. Benefited from increased awareness of the benefits and importance of maintaining a balanced support system. Will continue in IOP to prevent decompensation, stabilize mood, and increase healthy coping skills. Narrative Note: []
--- NOTE | 2023-08-12 11:17 | BH.SGPN.GN ---
Behaviors/Verbalizations/Mental Status: []Client alert and oriented, casually dressed and groomed. Eye contact good. Motor activity appropriate. Speech within normal limits. Affect congruent, mood dysthymic and anxious. Thoughts linear, logical, no signs of hallucinations or delusions. Client Response/Progress/Benefit: [] Client was an active participant throughout AEB contributing to small group discussion, participating in the activity, and taking notes. Client provided input during discussion on the types of support our supports can provide. Able to identify the types of supports provided by current support system. Client reported gaining awareness that they could benefit from more social and emotional supports. Shared this will help to feel less anxious and isolated, as well as help her feel connected. Client identified steps to achieve this as challenging herself to use opposite action and reach out and engage more with supports. Client seemed to benefit from identifying the types of support and areas client could benefit from improving. Pt recommended to continue IOP tx to improve mood management, promote healthy coping skill application, and increase engagement with supports. Narrative Note: [] Behaviors/Verbalizations/Mental Status: []Client alert and oriented, casually dressed and groomed. Eye contact good. Motor activity appropriate. Speech within normal limits. Affect congruent, mood dysthymic and anxious. Thoughts linear, logical, no signs of hallucinations or delusions. Client Response/Progress/Benefit: [] Client was an active participant throughout AEB contributing to small group discussion, participating in the activity, and taking notes. Client provided input during discussion on the types of support our supports can provide. Able to identify the types of supports provided by current support system. Client reported gaining awareness that they could benefit from more social and emotional supports. Shared this will help to feel less anxious and isolated, as well as help her feel connected. Client identified steps to achieve this as challenging herself to use opposite action and reach out and engage more with supports. Client seemed to benefit from identifying the types of support and areas client could benefit from improving. Pt recommended to continue IOP tx to improve mood management, promote healthy coping skill application, and increase engagement with supports. Narrative Note: []
--- NOTE | 2023-09-08 09:05 | BH.SGPN.GN ---
tracker notes 01/16 for depression and 11/18 for anxiety/self-harm urges. Pt states it was a rough weekend. Mental health win was coming to IOP today. I'm trying to pull myself out of my funk. Reports that she spent a majority of the weekend isolating in her room. Mixture of mental health struggles and feeling ill. As she isolated her negative thoughts increased which led to worsening depression, anxiety, stress, and fear. I'd been doing so well. Concerned that she will decompensate. She could not identify any specific trigger. No progress noted. Group provided support, encouragement, and feedback which was beneficial. Will continue in [facility] to maintain safety, increase healthy coping, and improve functioning. Narrative Note: []
== END 2023-08-13 23:59 ==
LOC: BHIOP 08:32
PROVIDERS: Referring Provider Psychiatry & Neurology Psychiatry; Visit Provider Psychiatry & Neurology Psychiatry
DX: F33.2 Major depressive disorder, recurrent severe without psychotic features (principal); F43.10 Post-traumatic stress disorder, unspecified; F41.0 Panic disorder [episodic paroxysmal anxiety]; G43.909 Migraine, unspecified, not intractable, without status migrainosus; F50.2 Bulimia nervosa
CPT/HCPCS: S9480; 90832; 90834; 90853

== ENCOUNTER 2023-08-15 09:17 | Outpatient (RCR) | payer BC, SELFPAY ==
[2023-08-14 00:26] VITALS: BP 119/73; PULSE 79
--- NOTE | 2023-08-23 09:05 | BH.SGPN.GN ---
Behaviors/Verbalizations/Mental Status: [] Pt alert and oriented, casually dressed and groomed. Eye contact fair to good. Motor activity appropriate. Speech within normal limits. Affect congruent, mood dysthymic and anxious. Thoughts linear, logical, no signs of hallucinations or delusions. Reviewed pt?s symptom tracker, suicidal ideation reported as 3/5 which is slightly elevated for pt; however, pt denies plan, or active intent as of 08/23/23. Pt will meet with individual therapist for further assessment as well. Pt is future oriented and protective factors noted. Client Response/Progress/Benefit: [] Pt responded well to session, open to processing with group and engaged. Pt reports feeling better than I had been last week this morning. 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 Indicated that the relationship with her parents has been her primary stressors due to their own mental health struggles and constant chaos in the environment. Pt shared it has been difficult for her to focus on her mental health and make progress in an environment that feels toxic much of the time. Discussed taking steps to transfer her car insurance into her own name in order to ease the process when she has the finances to move out which pt views as a mental health win as well. Pt appeared to benefit from supportive feedback of the group, as well as reflecting on mental health wins. Pt will continue IOP tx to promote mood stability, continue to encourage skill application, as well as prevent decompensation as pt completes her aftercare plans. Narrative Note: []
--- NOTE | 2023-08-23 10:10 | BH.SGPN.GN ---
Behaviors/Verbalizations/Mental Status: []Pt alert and oriented, casually dressed and groomed. Eye contact good. Motor activity appropriate. Speech within normal limits. Affect congruent, mood anxious. Thoughts linear, logical, no signs of hallucinations or delusions. Client Response/Progress/Benefit: []Pt was an active participate AEB providing contributions, listening attentively to others, and taking notes throughout. The group identified the impact of emotions on communication such as shutting down or not being productive when dysregulated. During group activity, Pt identified feeling ?worthless? in the activity at first because pt did not have an ?important job? but pt challenged herself to be more engaged which helped the group. Pt benefited from session by gaining an increased understanding on the importance of managing emotions to improve daily functioning. Pt will continue IOP tx to reinforce healthy coping skills and further improve mood stability. Narrative Note: []
--- NOTE | 2023-08-23 11:10 | BH.SGPN.GN ---
Behaviors/Verbalizations/Mental Status: []Pt alert and oriented, casually dressed and groomed. Eye contact fair. Motor activity restless. Speech within normal limits. Affect constricted, mood anxious. Thoughts linear, logical, no signs of hallucinations or delusions. Client Response/Progress/Benefit: [] Pt engaged in session AEB Pt listening attentively to peers and providing input. Attentive during psychoeducation on 4 zones of regulation. Pt able to identify feelings and behaviors for each zone. Pt identified coping skills one can use to support self in each zone. Identified one skill from each zone she can practice which included: reach out to a friend, stretching, creating a schedule/routine, and mindfulness. Benefited from increased education on zones of regulation or stages of alertness for emotions and healthy coping skills to use for each zone. Will continue IOP tx to increase consistent use of healthy coping skills, challenge distortions, and prevent decompensation.
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
== END 2023-08-26 10:08 | disposition home or self-care (01) ==
LOC: BHIOP 09:17
PROVIDERS: Referring Provider Psychiatry & Neurology Psychiatry; Visit Provider Psychiatry & Neurology Psychiatry
DX: F33.2 Major depressive disorder, recurrent severe without psychotic features (principal); F43.10 Post-traumatic stress disorder, unspecified; F41.0 Panic disorder [episodic paroxysmal anxiety]
CPT/HCPCS: S9480; 90837; 90853

== ENCOUNTER 2024-02-14 08:00 | Outpatient (RCR) | payer BC, SELFPAY ==
--- NOTE | 2024-02-14 10:15 | BH.SGPN.GN ---
Behaviors/Verbalizations/Mental Status: []Pt alert and oriented, neatly dressed and groomed. Eye contact good. Motor activity appropriate. Speech within normal limits. Affect congruent, mood anxious. Thoughts linear, logical, no signs of hallucinations or delusions. Client Response/Progress/Benefit: [] Pt was an active participant, AEB taking notes and providing input in group discussions and activities. Attentive during psychoeducation. Pt engaged during interactive discussion in which the group defined self-care and discussed its benefits. Group discussed benefits of self-care which included; better self-esteem, reduce stress, and boost mood. Pt participated in small group where they worked to identify common self-care ?myths.? Pt?s group worked on self-care is selfish, not everyone deserves it, and it is self-indulgent. Benefited from increased awareness of self-care, its benefits, and the consequences of not utilizing self-care strategies. Will continue IOP tx to prevent decompensation, improve self-confidence, and reduce negative self-talk. Narrative Note: []
--- NOTE | 2024-02-14 11:15 | BH.SGPN.GN ---
Behaviors/Verbalizations/Mental Status: []Pt alert and oriented, casually dressed and groomed. Eye contact fair. Motor activity appropriate. Speech within normal limits. Affect congruent, mood anxious. Thoughts linear, logical, no signs of hallucinations or delusions. Client Response/Progress/Benefit: [] Pt engaged participant AEB completing self-assessment worksheet and providing input throughout discussion. Pt completed worksheet identifying current self-care practices and what self-care activities Pt wants to start using. Pt selected social self-care to begin practicing more consistently. Pt plans to do this by researching group classes to increase connections. Appeared to benefit from completing the self-care evaluation and gaining insights into current self-care practices, as well as identifying areas in which pt would like to improve upon. Pt will continue IOP tx to challenge distortions,improve view of self, increase healthy coping skills, and prevent decompensation.
--- NOTE | 2024-02-14 11:36 | BH.COMM_ITS ---
Communication Note Communication with Client Communication Note: Met with pt to complete initial paperwork and administer the CSSR-S screening and risk assessment. Pt is moderate per the CSSR-S screening and risk assessment. Pt denies any current active suicidal ideations, but does note fleeting thoughts of not wanting to continue to suffer in the last month. Pt has a history of 3 suicide attempts in 2017/2018 and 2 interrupted attempts in Dec 2022 and November 2023 per her report. Pt is future oriented. Motivations to live include her dog and goals for her future. No guns at home. No stockpiles of medications. Pt receptive to discussion on reducing access to lethal means. Discussed case with Dr. Zuñiga and pt will be admitted to [facility] tx with a diagnosis of MDD, recurrent, severe, without psychosis F 33.2
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
--- NOTE | 2024-02-15 09:00 | BH.SGPN.GN ---
Behaviors/Verbalizations/Mental Status: [Patient was alert and oriented, appropriately dressed and groomed. Eye contact was good, motor activity normal, speech within normal limits. Affect congruent, mood content. Thoughts linear, logical, no signs of hallucinations or delusions. Reviewed Patients symptom tracker and the patient reports low/moderate in anxiety/panic attacks, and low in depressed mood and agitation/irritability/anger. Patient did not report symptoms of self-harm urges or thoughts/risk of suicide.] Client Response/Progress/Benefit: [Patient was engaged and open to the discussion. Patient reported her mood to be ?up-beat?. Patients first win is that she is going to tell her job she can only work part-time instead of just quitting. She shared that she had shared some things with only her boss and somehow a bunch of her co-workers found out and felt like this was not right. Patients second win is that she is back in IOP and is thankful for it. Patients stressor is that her mom got rid of her dogs yesterday and she was very attached to one of them. Patient was interactive and respectful with other group members about their mental wins and stressors. Patient benefited from the discussion by listening to feedback and giving input on her peer?s stressors and mental health wins. Patient will continue with IOP treatment to help develop healthy skills, promote mood stability, and improve distress tolerance. ] Narrative Note: []
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
[2024-02-15 09:28] VITALS: BP 130/73; PULSE 79
--- NOTE | 2024-02-15 10:10 | BH.SGPN.GN ---
Behaviors/Verbalizations/Mental Status: [] Eye contact is good. Motor activity is appropriate. Appearance is casual. Speech is Appropriate. Mood is anxious. Affect is congruent. Thoughts are linear and logical. No evidence of psychosis. Client Response/Progress/Benefit: [] Pt receptive to session AEB contributing to small group discussion, as well as listening attentively to others, and taking notes. Worked with group to brainstorm the positive and negative aspects of stress on physical and mental health. Group did well to identify the benefits of stress as well as the impact of distress on performance, relationships, and mental health. Pt identified their personal top stressors as: PTSD, money, family, housing, and her mental health. Pt seemed to benefit from increased awareness of current stressors and impact stress has on mental health. Will continue in IOP to prevent decompensation, stabilize mood, increase coping skills, and improve functioning. Narrative Note: []
--- NOTE | 2024-02-15 11:20 | BH.SGPN.GN ---
Behaviors/Verbalizations/Mental Status: []Pt alert and oriented, neatly dressed and groomed. Eye contact good. Motor activity appropriate. Speech within normal limits. Affect congruent, mood stressed. Thoughts linear, logical, no signs of hallucinations or delusions. Client Response/Progress/Benefit: [] Pt was an active participant in group discussions and experiential activity. Attentive during psychoeducation on the 4 A's (Avoid, adapt, alter, accept) of coping with stress. Shared that they would benefit most from altering her approach to stressors and adapting different perspectives when she gets stuck on a stressor. Was able to identify the connection between the experiential activity and utilization of stress management skills. Benefited from increased awareness of stress management strategies. Pt will continue IOP tx to increase distress tolerance skills, improve daily functioning, and reduce negative thinking patterns. Narrative Note: []
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
--- NOTE | 2024-02-15 12:07 | BH.PSY.EVA_ITS ---
Initial Treatment Plan Patient Information Visit Information: ADMISSION DATE: EXPECTED LOS: 4-6 weeks Problems/Symptoms Problem #1:: Anxiety Symptom:: Worry, rumination, panic attacks, nightmares, flashbacks, re experiencing, hypervigilance, dissociation and avoidance Problem #2:: Depression Symptom:: Sadness, hopelessness, guilt, recent passive suicidal ideation, recent self-harm, decreased concentration, low energy
--- NOTE | 2024-02-17 09:05 | BH.SGPN.GN ---
Behaviors/Verbalizations/Mental Status: [] Eye contact is good. Motor activity is appropriate. Appearance is casual. Speech is Appropriate. Mood is anxious. Affect is congruent. Thoughts are linear and logical. No evidence of psychosis. Reviewed daily check in sheet and no reports of suicidal ideations or intent. Client Response/Progress/Benefit: [] Pt participated at times during the group discussion. Attentive. Daily symptom tracker notes 11/18 for self-harm, depression, and anxiety. Able to identify mental health wins and healthy habits. Pt reports feeling uplifted today. Shared a recent behavior that she was very proud which was a significant step in overcoming body-shaming struggles. Stressors continue to be family conflicts and housing situation. Elaborated on difficutly relationship with her mother and how this impacts her mental health. Her mother is out of town for several days which may be a reason for her improved mood. Progress noted. Will continue in IOP to maintain safety, stablize mood, and improve functioning. Narrative Note: []
--- NOTE | 2024-02-17 10:15 | BH.SGPN.GN ---
Behaviors/Verbalizations/Mental Status: [] Eye contact is good. Motor activity is appropriate. Appearance is casual. Speech is Appropriate. Mood is depressed and anxious. Affect is congruent. Thoughts are linear and logical. No evidence of psychosis. Client Response/Progress/Benefit: []Pt engaged participant AEB listening to others, engaging in activity, and providing feedback at times. Attentive during psychoeducation and provided insight into obstacles that impede mental wellness. Pt shared with group current mental health reality and desired mental health reality. Stated she would like to get to a place where she feels more present and connected within her relationships and daily activities. Identified barriers to desired reality include: poor boundaries, negative self-talk, and trust issues. Benefited from taking look at current mental health state and obstacles for progress. Pt to continue IOP tx to improve mood stability, reduce reliance on maladaptive coping, and prevent decompensation. Narrative Note: []
--- NOTE | 2024-02-17 11:15 | BH.SGPN.GN ---
Behaviors/Verbalizations/Mental Status: [] Eye contact is good. Motor activity is appropriate. Appearance is casual. Speech is Appropriate. Mood is anxious. Affect is congruent. Thoughts are linear and logical. No evidence of psychosis Client Response/Progress/Benefit: [] Pt was an active participant in group discussion and activity. Worked with group to identify strategies to help overcome barriers and obstacles to desired reality. Group developed strategies for the common barriers. Identified personal barriers to desired reality and choose one obstacle to work. Pt stated she wants to work on barrier of pessimism/negative thoughts by challenge negativity and looking at what she can have for her future. Pt seemed to benefit from increased repertoire of healthy coping skills/strategies to overcome common barriers to moving forward. Pt is to continue IOP to improve distress tolerance, increase confidence, and prevent decompensation.
--- NOTE | 2024-02-21 09:05 | BH.SGPN.GN ---
Behaviors/Verbalizations/Mental Status: [] Eye contact is poor. Motor activity is appropriate. Appearance is casual. Speech is Appropriate. Mood is anxious. Affect is congruent. Thoughts are linear and logical. No evidence of psychosis. Reviewed daily check in sheet and no reports of suicidal ideations or intent. Client Response/Progress/Benefit: [] Did not participate in group discussion. When asked if she wanted to share today pt stated not really. Attentive. Daily symptom tracker notes 3/5 for depression and 4/5 for anxiety. Limited progress noted as pt did not share or participate in group discussions. May have benefited being attentive to group discussions. Will continue in IOP to maintain safety, prevent decompensation, and to increase healthy coping skills. Narrative Note: []
--- NOTE | 2024-02-21 10:10 | BH.SGPN.GN ---
Behaviors/Verbalizations/Mental Status: []Eye contact is good. Motor activity is appropriate. Appearance is casual. Speech is Appropriate. Mood is anxious. Affect is congruent. Thoughts are linear and logical. No evidence of psychosis. Client Response/Progress/Benefit: [] Pt was an engaged participant AEB listening attentively to others, taking notes, and providing feedback in small group discussions. Attentive during psychoeducation AEB by note taking and providing some input. Pt worked along with peers in small groups to define inappropriate guilt and appropriate guilt. Interactive discussion on examples of both inappropriate and appropriate guilt. Pt able to connect impact inappropriate guilt can have on MH. Pt gave an example of appropriate guilt (being late) turning into inappropriate guilt (ruminating all day about this). Benefited from increased awareness of guilt and the differences between appropriate and inappropriate guilt. Will continue in IOP to prevent decompensation, improve daily functioning, and reduce negative self-talk. Narrative Note: []
--- NOTE | 2024-02-21 11:15 | BH.SGPN.GN ---
Behaviors/Verbalizations/Mental Status: []Pt alert and oriented, casually dressed and groomed. Eye contact good. Motor activity appropriate. Speech within normal limits. Affect congruent, mood anxious and depressed. Thoughts linear, logical, no signs of hallucinations or delusions. Client Response/Progress/Benefit: [] Pt engaged participant AEB listening attentively to others and providing input throughout group. Pt worked within their small group to identify strategies to manage inappropriate guilt. Identified a personal example of inappropriate guilt as over blaming herself for being late. Insight this cues a fear of disappointing others and rejection. Pt wants to work on combatting inappropriate guilt by challenging distortions, making healthy changes to prevent continuation of behavior, and focusing on self-compassion. Pt seemed to benefit from learning about strategies to manage appropriate and inappropriate guilt. Pt will continue IOP tx to promote mood stability, increase self-confidence, and prevent decompensation. Narrative Note: []
--- NOTE | 2024-02-22 11:10 | BH.SGPN.GN ---
Behaviors/Verbalizations/Mental Status: []Pt alert and oriented, neatly dressed and groomed. Eye contact good. Motor activity appropriate. Speech within normal limits. Affect congruent, mood anxious. Thoughts linear, logical, no signs of hallucinations or delusions. Client Response/Progress/Benefit: [] Pt receptive of session, engaged throughout AEB actively contributing and listening to discussion, as well as taking notes. Pt participated in the experiential activity and processed with group how their emotions, perspective, and reactions positively and negatively impacted the outcome. Pt identified pitfalls they struggle with and shared wanting to work on pitfall of not challenging negative self-talk by hanging up sticky notes and not looking in the mirrors in the morning. Benefited from identifying personal pitfalls and strategies to overcome these pitfalls. Will continue IOP tx to prevent decompensation, reduce negative self-talk, and improve daily functioning. Narrative Note: []
--- NOTE | 2024-02-22 15:02 | BH.MDN_ITS ---
Multi-Disciplinary Note Note 45-min Individual: Time Started:: 10:26 Date: 02/22/24 Purpose of session/treatment goals addressed:: To work on treatment plan goal #1 obj #1 and obj #2, as well as goal #2 obj #2. Eye Contact:: Good (tearful throughout) Motor Activity:: Restless Appearance:: Casual Speech:: Pressured Mood:: Anxious and Depressed Affect:: Congruent Thoughts:: Linear, Logical, Racing and No evidence of hallucinations/delusions noted Staff Interventions:: thought challenging, motivational interviewing, psychoeducation on: (maintenance cycles), CBT techniques and taught coping skills (positive affirmations, introduced exposure therapy) Client Response:: Pt receptive of session, openly discussed current sx, stressors, and treatment goals. Expressed feeling confused and as though she is ?pretending? most of the time. Described feeling disconnected and as though she is on the outside of her life looking in. Reports feeling she is not getting as much as she could from group because of her lack of engagement and fears of emb arrassing herself if she shared or says something wrong. Pt connected to discussion reviewing anxiety and depression maintenance cycles. Identified that avoidance and shutting down maintain her anxiety in several areas of her life. Identified isolation, negative self-talk, poor boundaries, and lack of consistent self-care as maintaining depression cycle. Shared that she recently dropped down to working one day a week due to her mental health struggles and toxicity of the work environment. Reviewed pros and cons of remaining at her current place of employment. Pt identified wanting to leave this job but has remained out of fear of disappointing others. Did well to establish a goal of advocating for her needs with her supports and following through with desire to leave her job. When not at work, pt reports that if friends are unavailable she spends much of her time at home which is often an unhealthy environment. Pt reports struggling with anxiety when alone in public. Discussed fears that people are looking at her and judging her. Reports a desire to work on this and feel more confident in herself. Receptive of beginning daily affirmations, as well as challenging herself to do one independent activity outside of the home daily. This will allow pt to begin working on exposure and building confidence in her ability to do so. Described finding it helpful to frame it for herself as ?learning to date myself?. Risks/Concerns:: Denies any suicidal ideation, plan, or intent as of this date 02/22/24. Progress Toward Goals/Plan:: Progress limited as this is pt?s third day in treatment. Pt continues to endorse depression, isolation, low self-worth, and difficulties independently completing activities of daily living. Pt describes a constant stream of negative self-talk thoughts, specifically related to her appearance and ability to succeed in life. Reports a desire to work on her confidence and reduce negative self-talk, improve independence, and allow herself to be her authentic self without fear of other?s judgement. Willing to begin working on exposure therapy. Pt would also benefit from being connected with an outpatient therapist specializing in eating disorders/body image. She would benefit from continuing the IOP program to promote application of coping skills, improve mood stability, and improve overall ability to manage her anxiety. Time Stopped:: 11:06
--- NOTE | 2024-02-24 09:05 | BH.SGPN.GN ---
Behaviors/Verbalizations/Mental Status: [Patient was alert and oriented, appropriately dressed and groomed. Eye contact was good, motor activity normal, speech within normal limits. Affect congruent, mood content. Thoughts linear, logical, no signs of hallucinations or delusions. Reviewed Patients symptom tracker and the patient reports low in depressed mood, anxiety/panic attacks, self-harm urges, and thoughts of suicide. Patient does not report symptoms of agitation/irritability/anger or risk of suicide] Client Response/Progress/Benefit: [Patient was engaged and open to the discussion. Patient reported her mood to be ?relaxed?. 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 Patients second win is that she is overall feeling good ad thinks she is really taking in the material in groups. Patients stressor is that her mother is coming home this weekend and she now believes her mom is part of the reason she isn?t getting better. Patient was interactive and respectful with other group members about their mental wins and stressors. Patient benefited from the discussion by listening to feedback and giving input on her peer?s stressors and mental health wins. Patient will continue with IOP treatment to help develop healthy skills, promote mood stability, and improve distress tolerance. ] Narrative Note: []
--- NOTE | 2024-02-24 10:10 | BH.SGPN.GN ---
Behaviors/Verbalizations/Mental Status: [] Eye contact is good. Motor activity is appropriate. Appearance is casual. Speech is Appropriate. Mood is anxious. Affect is congruent. Thoughts are linear and logical. No evidence of psychosis Client Response/Progress/Benefit: [] Pt responded well to session AEB contributing to small group discussion, taking notes, and listening attentively to others. Group defined anger and discussed the benefits of managed anger and anger as a secondary emotion. Pt shared perspective on personal benefits of anger as advocating for self. Pt completed worksheet on anger triggers and personal warning signs of anger. Pt identified a common trigger as Engaging with others. Appeared to benefit from increased knowledge of the anger cycle as well as personal triggers. Will continue IOP to prevent decompensation, increase healthy coping skills, and improve functioning. Narrative Note: []
--- NOTE | 2024-02-24 11:15 | BH.SGPN.GN ---
Behaviors/Verbalizations/Mental Status: []Client alert and oriented, casually dressed and groomed. Eye contact good. Motor activity appropriate. Speech within normal limits. Affect congruent, mood content, anxious. Thoughts linear, logical, no signs of hallucinations or delusions. Client Response/Progress/Benefit: []Pt was engaged throughout AEB contributing to group discussion and self-reflection. Group finished processing cues to anger worksheet. Pt contributed as group brainstormed healthy coping skills for better managing anger which included: music, walking/exercise, taking a break, grounding tools, reflection, and journaling. Pt identified personal anger cycle and was able to make connections on how own thoughts/evaluations of a situation can worsen anger feelings. Stated will work on trusting compliments to reduce internalized unhealthy anger. Pt appeared to benefit from identifying different techniques to manage anger as well as gaining awareness of potential consequences of unmanaged anger. Pt to continue IOP to promote use of healthy coping skills, challenge distortions, and prevent decompensation. Narrative Note: []
--- NOTE | 2024-02-29 10:10 | BH.SGPN.GN ---
Behaviors/Verbalizations/Mental Status: [] Eye contact is good. Motor activity is appropriate. Appearance is casual. Speech is Appropriate. Mood is anxious and dysthymic. Affect is congruent. Thoughts are linear and logical. No evidence of psychosis. Client Response/Progress/Benefit: [] Pt was an active participant in group discussions. Attentive during psychoeducation on the 4 communication styles (Passive, Passive-Aggressive, Aggressive, and Assertive) and the obstacles to effective communication. Contributed during interactive discussion on the benefits of communicating effectively which included; having one's needs met, helping, building connection with others, decreases stress and uncertainty, improved relationships, and increased trust. Worked well in small group in which pt and peers identified the benefits and disadvantages to the different communication styles. Pt identified connecting with aspects of the passive and passive-aggressive communication styles, reports she often avoids or uses sarcasm which leads to adverse impacts on her overall sense of self-worth. Benefited from increased understanding of communication styles and how these can impact effective communication. Will continue in IOP to prevent decompensation, improve mood stability, and improve functioning. Narrative Note: []
--- NOTE | 2024-02-29 11:15 | BH.SGPN.GN ---
Behaviors/Verbalizations/Mental Status: []Pt alert and oriented, casually dressed. Eye contact good. Motor activity appropriate. Speech within normal limits. Affect congruent, mood depressed. Thoughts linear, logical, no signs of hallucinations or delusions. Client Response/Progress/Benefit: [] Pt responded well to session AEB Pt listening attentively to others and providing input during group discussion on the pay offs and costs of the different communication styles. Pt able to connect how current communication style impacts mental health. Connected with peers? comments about importance of using assertive communication. Pt did well being assertive in the group activity and practiced using assertive communication in the role playing scenarios. Pt helped her group develop assertive communication responses which pt reported was hard because she often shuts down and ?toughs up and let?s things happen? instead of speaking up. ?Pt seemed to benefit from increasing awareness of healthy strategies to improve communication. Will continue IOP tx to reduce negative thinking patterns, improve daily functioning, and reduce avoidance. Narrative Note: []
--- NOTE | 2024-02-29 15:25 | BH.MDN_ITS ---
Multi-Disciplinary Note Note 45-min Individual: Time Started:: 09:26 Date: 02/29/24 Purpose of session/treatment goals addressed:: Purpose of session was to address tx plan goal #1 obj #2 and goal #2 obj. #2. Eye Contact:: Good Motor Activity:: Appropriate Appearance:: Disheveled and Casual Speech:: Appropriate Mood:: Anxious and Depressed Affect:: Congruent Thoughts:: Linear, Logical and No evidence of hallucinations/delusions noted Staff Interventions:: thought challenging, psychoeducation on: (healthy boundaries), CBT techniques and strengths perspective Client Response:: Pt responded well to session, actively engaged in discussion on current symptoms and stressors. Spent much of session discussing a recent stressor involving her neighbors and a maranda she has been involved with. Described meeting the maranda she has been involved with through her neighbors, whom she recently became friends with. Pt stated that initially this maranda seemed to be a very kind, supportive friend, and was encouraging of her mental health treatment. Explained that as they grew closer, the relationship began to turn romantic. Pt reports telling him she did not think becoming romantically involved would be healthy for her at this time and avoided doing so. However, stated that over time she went back on this boundary and became sexually involved. Reports hating herself afterwards and noticed an immediate shift in the relationship since. Shared that he has been hiding or lying about spending time with pt, making statements about pt being ?obsessed? with him and then denying doing so, and cancelling plans. Pt reports struggling to know if he is actually making these comments about her or if her neighbors are trying to create drama because they can tell she likes him. Pt described feeling hurt, confused, and angry with herself for trusting a maranda again. Able to identify the barrier a romantic relationship places on her ability to improve her relationship with herself, as pt begins to prioritize the relationship over herself. Disclosed she has not followed through with goals from last session as a result. Reports wanting to establish a boundary with herself to not hangout alone with a maranda to prevent crossing the boundary of friendship. Additionally discussed wanting to develop healthier balance when creating friendships so she can continue to prioritize self-care. Indicated plans to use one weekend day for self-care and designating the other for socialization. Plans to get back into daily affirmations. Risks/Concerns:: Pt denies any active SI, plan, or intent as of this date, 02/29/24. Progress Toward Goals/Plan:: Some regression noted. Reports she has not been working on treatment goals discussed in prior session due to relationship stress. Reports she struggles with becoming consumed by new relationships and often prioritizes it over her own needs, often making exceptions for her boundaries and engaging in people pleasing behaviors. Described doing so in this instance and reports feeling more anxious and depressed as a result. Endorses increased fear of abandonment, racing thoughts and panic, negative self-talk, and crying spells as a result. Recommended continued IOP tx to improve self- confidence, increase engagement in consistent self-care practices, and prevent decompensation. Time Stopped:: 10:12
--- NOTE | 2024-03-02 09:00 | BH.SGPN.GN ---
Behaviors/Verbalizations/Mental Status: []Pt alert and oriented, casually dressed and groomed. Eye contact good. Motor activity appropriate. Speech within normal limits. Affect congruent, mood euthymic and anxious. Thoughts linear, logical, no signs of hallucinations or delusions. Reviewed pt?s symptom tracker, no risk for suicidal ideation, plan, or intent 03/02/24 Client Response/Progress/Benefit: []Pt responded well to session, attentive and providing support to peers. Pt reports feeling determined this morning as pt was on time for IOP which was one of her goals and she is working on allowing herself to feel angry. Pt went axe throwing last night and found it helpful and she wants to try other forms of emotional release to help express anger. Pt shared she is working on feeling anger because she is tired of getting walked over all the time. Pt equally acknowledged her progress and shared she has been feeling physically ill because she is so out of my comfort zone. [employer] Recruiter helped pt remind herself that growth often happens in the uncomfortable. Pt appeared to benefit from giving herself credit and group feedback. Pt will continue IOP tx to prevent decompensation, improve self-confidence, and increase application of healthy coping skills. Narrative Note: []
--- NOTE | 2024-03-02 10:15 | BH.SGPN.GN ---
Behaviors/Verbalizations/Mental Status: [] Eye contact is good. Motor activity is appropriate. Appearance is casual. Speech is Appropriate. Mood is euthymic. Affect is congruent. Thoughts are linear and logical. No evidence of psychosis. Client Response/Progress/Benefit: [] Client was an active participant during interactive group discussions. Attentive during psychoeducation on the six types of boundaries (physical, emotional, intellectual, sexual, time, and material) AEB note-taking. Along with peers contributed to interactive discussion on defining what a boundary is in mental health. Client along with peers identified challenges to setting boundaries which included; lack of self awareness, guilt, generational cycles, fear of disappointing the other person, etc. Client along with peers identified the benefits to setting boundaries such as increased identify of self, genuine relationships, self-care, and increased confidence. Group discussed the mental health benefits to establishing boundaries at work, school, and home. Client benefited from increased awareness and insight on the importance/benefit to setting health boundaries. Will continue in IOP to prevent decompensation, increase self worth, and improve functioning. Narrative Note: []
--- NOTE | 2024-03-02 11:15 | BH.SGPN.GN ---
Behaviors/Verbalizations/Mental Status: [] Eye contact is good. Motor activity is appropriate. Appearance is casual. Speech is Appropriate. Mood is euthymic. Affect is congruent. Thoughts are linear and logical. No evidence of psychosis. Client Response/Progress/Benefit: [] Client responded well to session AEB listening attentively to peers, providing some input, as well as taking notes throughout. Client contributed more throughout psychoeducation on different boundary setting styles which is progress as she has struggled to share in prior groups. Reports connecting most with porous style of boundary setting, identifying that she feels like she gets walked all over and let others take advantage or her with basically setting no boundaries. Participated in group discussion brainstorming various strategies for improving healthy boundary settings, as a group identified practicing in a mirror, starting with easy/small boundaries, and not overly apologizing as strategies to try. Seemed to benefit from increased awareness of how different boundary styles can impact mental health. Will continue IOP tx to increase consistent application of skills, increase self-care and anxiety management, and increase self worth. Narrative Note: []
--- NOTE | 2024-03-05 10:15 | BH.SGPN.GN ---
Behaviors/Verbalizations/Mental Status: []Pt alert and oriented, neatly dressed and groomed. Eye contact good. Motor activity appropriate. Speech within normal limits. Affect congruent, mood anxious. Thoughts linear, logical, no signs of hallucinations or delusions. Client Response/Progress/Benefit: [] Pt responded well to session, contributing to discussion, and engaged during the activity. Group identified the benefits of change which included: increased confidence, improving mental health, and making progress. Worked with the group to identify barriers to change, which included: uncomfortable emotions such as anxiety and fear, lack of energy, worried about what others will think, and fear of the unknown. Pt participated along with group in activity where they identified and discussed the emotions related to change. Pt shared she often associates change with anxiety and something bad. Benefited from increased awareness and understanding of emotions, benefits, and barriers related to change. Will continue IOP tx to prevent decompensation, improve self-compassion, and reduce negative thinking patterns. ?? Narrative Note: []
--- NOTE | 2024-03-05 11:10 | BH.SGPN.GN ---
Behaviors/Verbalizations/Mental Status: [] Client alert and oriented, casually dressed and groomed. Eye contact good. Motor activity appropriate. Speech within normal limits. Affect congruent, mood anxious and dysthymic. Thoughts linear, logical, no signs of hallucinations or delusions. Client Response/Progress/Benefit: [] Client responded well to session, attentive. Did well to process activity and work with group to relate the strategies used to overcome barriers in the activity to managing change in own life. Client identified a change they would like to make as focusing on herself rather than being in a relationship. Client identified currently being in preparation stage for this particular change. Client stated their goal is to practice reminding herself of the benefits of refraining from a relationship at this time to focus on her mental health. Appeared to benefit from identifying a small goal to work towards. Client will continue IOP tx to prevent decompensation, decrease thoughts that lead to depressive symptoms, improve boundaries, and increase overall functioning. Narrative Note: []
--- NOTE | 2024-03-06 09:05 | BH.SGPN.GN ---
Behaviors/Verbalizations/Mental Status: [] Eye contact is good. Motor activity is appropriate. Appearance is casual. Speech is Appropriate. Mood is anxious. Affect is congruent. Thoughts are linear and logical. No evidence of psychosis. Reviewed daily check in sheet and pt reports 1/5 for suicidal thoughts and 0/5 for intent. Baseline. Client Response/Progress/Benefit: [] Pt was an active participant in group discussion. Attentive. Emotion for today is clammy but cheerful. Daily symptom tracker notes 2/5 for depression and anxiety. Able to identify mental health wins and healthy habits. Utilizing skills such as opposite-action and thought reframing. I just focus on myself to much. Shared her irrational thoughts and anxiety when in public settings. Reports an social event this weekend which she thought went well however upon returning hope she spent several hours replaying previous conversations in her head beleiving that she said things wrong. Eventually she caught herself and identify she was utilizing several cognitive distortions. This awareness was helpful. Progress noted as she was more engaged and vulnerable in group this AM. Benefited from group support,encouragement, and feedback. Will continue in IOP to maintain safety, increase healthy coping, and improve functioning. Narrative Note: []
--- NOTE | 2024-03-07 09:00 | BH.SGPN.GN ---
Behaviors/Verbalizations/Mental Status: [] Pt alert and oriented, neatly dressed and groomed. Eye contact good. Motor activity appropriate. Speech within normal limits. Affect congruent, mood euthymic and anxious. Thoughts linear, logical, no signs of hallucinations or delusions. Reviewed pt?s symptom tracker, no risk for suicidal ideation, plan, or intent 03/07/24 Client Response/Progress/Benefit: []Pt responded well to session, attentive and listening to peers. 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 Pt stated despite the body dysmorphia and negative thoughts, pt is trying to shut down the thoughts and use opposite action. Pt gave herself credit for continuing to sit with the uncomfortable and for baking yesterday. Pt appeared to benefit from reflecting on her application of coping skills and peer feedback. Pt will continue IOP tx to promote mood stability, increase distress tolerance, and improve self-confidence. Narrative Note: []
--- NOTE | 2024-03-07 10:10 | BH.SGPN.GN ---
Behaviors/Verbalizations/Mental Status: [] Eye contact is good. Motor activity is appropriate. Appearance is casual. Speech is Appropriate. Mood is anxious. Affect is congruent. Thoughts are linear and logical. No evidence of psychosis. Client Response/Progress/Benefit: [] Client participated when prompted. Attentive. Group identified types of social support (family, pets, professionals, spiritual, etc) and provided examples of benefits of having social support, including: decreased stress, increased self-esteem, encouragement, distraction, etc. Attentive during group discussion regarding the barriers to accessing support such as: lack of awareness, lack of trust, and low self-esteem. Client participated in experiential activity illustrating the impact communication, boundaries, and patience play in creating healthy support systems. Client appeared to benefit from increased knowledge of the benefits of social support and greater self-awareness. Will continue IOP to prevent decompensation, increase healthy coping strategies, and improve functioing. Narrative Note: []
--- NOTE | 2024-03-07 11:10 | BH.SGPN.GN ---
Behaviors/Verbalizations/Mental Status: [] Client alert and oriented, casually dressed and groomed. Eye contact good. Motor activity appropriate. Speech within normal limits. Affect congruent, mood anxious and content. Thoughts linear, logical, no signs of hallucinations or delusions. Client Response/Progress/Benefit: [] Client was an active participant throughout AEB contributing to discussion, providing personal examples, and taking notes. Client processed emotions felt in the activity and how they coped in the moment. Client provided input during discussion on the types of support our supports can provide. Client able to identify current support system and barriers that get in the way of using supports by drawing out their own support net. Client reported after identifying what type of supports they receive; they gained awareness that they could benefit from more emotional supports. Client identified steps to achieve this by challenging herself to cultivate the relationship with herself through positive self-talk and engaging in self-care activities independently. Client shared increasing tangible supports will help them become more more confident and less passive with her boundaries. Client seemed to benefit from identifying the type of support client needs to work on improving. Client recommended to continue IOP tx to promote continued application distress tolerance skills and increase emotional regulation skills. Narrative Note: []
--- NOTE | 2024-03-07 12:23 | PCM.BH.PN ---
Progress Note Progress Note: History of Present Illness/Interim History: The patient is a 23-year-old single female with a history of PTSD, anxiety and depression who is seen in follow-up at the [facility] behavioral health [facility]. I last saw the patient 3 weeks ago and at that time she refused any medications. Patient states that she has been enjoying the IOP and feels that she is learning valuable skills to help with her mental health issues. However she feels that she now does want to add a medication to help her control some of her anxiety and her panic that is associated sometimes with the PTSD triggers. Patient does not like to take medication and does not want to take anything that would make her gain weight even though right now her appetite is somewhat decreased. Symptoms are essentially unchanged with sadness, hopelessness, guilt and decreased concentration. Occasional panic attacks but she can push them down at times. She has symptoms of PTSD and when she gets triggered her anxiety surges. She has a history of self-harm by burning herself and last did this about 8 weeks ago. No cutting since 11th grade. She admits to occasional passive suicidal ideation but rarely in the past few weeks. She denies active suicidal ideation, plan for suicide, homicidal ideation, hallucinations, delusions or any symptoms of chucky. Current Psychiatric Medications: [] No medications currently for the past few months. Mental Status Examination: [] The patient is a 23-year-old female who appears normal for stated age and is casually dressed and groomed with good hygiene. She is ambulatory with a normal gait and has no psychomotor agitation or retardation. She is cooperative and pleasant during the interview. Eye contact is good and speech is normal rate and rhythm and fluent with no pressure. Mood is anxious and depressed. Affect is constricted. Thought process is goal directed and organized. Thought content: The patient is hopeful that as she benefits from learning new skills the addition of medication will help her also. There is no evidence of passive thoughts of , suicidal ideation, plan for suicide, homicidal ideation, hallucinations or delusions. Reality testing is intact. Judgment is intact. Insight fair and improving. Impulsivity high. Diagnoses: [] 1. Major depressive disorder, recurrent, severe without psychosis 2. PTSD 3. Panic disorder 4. Cluster B traits 5. History of bulimia nervosa 6. Migraine headaches 7. Primary support, legal and work issues Plan: [] Patient will continue the IOP and behavioral health at [facility] as the structure, support, education and group therapy will hopefully prevent worsening of the patient's symptoms. She felt safe during the interview and if it anytime she does not feel safe she will let us know or go to the emergency room. The risks, options, possible complications and side effects of medications were discussed with the patient and she understands and accepts these. Patient did well on Paxil and Prozac in the past. She decides to choose Prozac as she does not want any fear of weight gain with her history. Prescription is sent in for Prozac 10 mg p.o. daily. She will continue to follow-up with her outpatient providers and I will see the patient in follow-up in 2 weeks.
--- NOTE | 2024-03-07 15:18 | BH.MTP_ITS ---
Treatment Plan Review Demographics Date of Admission:: 02/14/24 Date of Treatment Plan Review:: 03/07/24 Admitting Diagnoses:: 1. Major depressive disorder, recurrent, severe without psychosis 2. PTSD 3. Panic disorder 4. Cluster B traits 5. History of bulimia nervosa Current Diagnoses:: 1. Major depressive disorder, recurrent, severe without psychosis 2. PTSD 3. Panic disorder 4. Cluster B traits 5. History of bulimia nervosa Patient Status Patient's Response to Treatment:: Pt has responded variably well to treatment AEB consistently attending IOP, though struggling with tardiness, and engaging in both individual and group therapy sessions. Pt struggles to consistently complete homework provided from individual counseling and often stops using skills when she experiences a setback or disappointment. Pt contributes at times during group discussions, takes notes, appears to listen to others, and engages in group activities. Pt continues to report difficulties with body dysmorphia which contributes to tardiness due to changing her clothes multiple times in the morning. Status of Current Problems and Symptoms: Pt is currently struggling most with her anxiety and depressive symptoms. Pt reports she continues to feel low, has negative self-talk, and is still struggling to complete activities of daily living on a consistent basis. Pt also working on developing healthier routines and engage in independent activities as her anxiety prevents pt from decision making and leads to significant reassurance seeking behaviors and poor boundaries with unhealthy friends/relationships. Pt reports last week struggling with relationship issues and having sexual relations with a friend, despite knowing it was unhealthy, which has led to a spiral of negative self-talk and poor self-esteem. Progress Problem #1: Problem Name:: Depression, irritability Status of Goals:: Obj 1 ? continued focus encouraged. Client can identify healthy coping skills like opposite action, behavior activation skills, self- care, positive self-talk, and changing environment to manage depression and irritability sx and triggers. Per DSM 5 client's depression has not reduced since admission though. This may be due to poor boundaries, pt prioritizing what others think of her rather than focusing on her relationship with herself, continued inconsistent skill application, and significant negative self-talk. However, irritability has decreased by 33%. Obj 2 ? continued progress needed. Client can identify some distorted thought patterns but struggles with independently reframing or practicing affirmations. Team Recommendations:: Team recommends continued work on current goals and objectives to reinforce skills. Will focus on helping client identify ways to start improving self-care and consistency of skill implementation. Problem #2: Problem Name:: Anxiety, Avoidance, PTSD Status of Goals:: ongoing work encouraged. Pt is able to identify several triggers for anxiety, panic, and PTSD. She is also improving somewhat in her ability to recognize healthy calming skills like breathing, grounding, taking breaks, and healthy distractions. Pt could benefit from reinforcement to demonstrate consistency of skill use. Pt is making strides with small self-care goals which is progress. As a result of inconsistent skill application and prioritizing others opinions, pt anxiety scores have only seen a 30% reduction. Team Recommendations:: Team recommends continued work on current goals and objectives to reinforce skills
--- NOTE | 2024-03-09 10:10 | BH.SGPN.GN ---
Behaviors/Verbalizations/Mental Status: [] Eye contact is good. Motor activity is appropriate. Appearance is casual. Speech is Appropriate. Mood is anxious. Affect is congruent. Thoughts are linear and logical. No evidence of psychosis. Client Response/Progress/Benefit: [] Pt receptive of session, actively engaged throughout AEB taking notes, providing input, and contributing in small group discussion. Appeared to connect with group topic of automatic thoughts and cognitive distortions and the impact of thought patterns on mental health, coping behaviors, and relationships. This particular group is very heavy on psychoeducation however pt appeared to connect with distortions and how they can impact functioning. Pt appeared to benefit from gaining insight on distorted thinking patterns and how this impacts overall mental health. Will continue IOP to improve view of self, increase consistent use of healthy coping skills, and prevent decompensation.
--- NOTE | 2024-03-09 10:58 | BH.MDN_ITS ---
Multi-Disciplinary Note Note 30-min Individual: Time Started:: 10:44 Date: 03/09/24 Purpose of session/treatment goals addressed:: Purpose of session was to address tx plan goal #1 obj #1 and goal #2 obj. #2. Eye Contact:: Fair Motor Activity:: Appropriate Appearance:: Disheveled and Casual Speech:: Appropriate Mood:: Dysthymic Affect:: Congruent Thoughts:: Linear, Logical and No evidence of hallucinations/delusions noted Staff Interventions:: motivational interviewing, psychoeducation on: (sleep hygiene), CBT techniques, strengths perspective and other (created a nighttime routine) Client Response:: Pt responded well to session, actively engaged throughout. Reports that she has followed through with several of the goals discussed in session last week. Went on to describe maintaining the boundary of not hanging out with members of the opposite sex alone. Shared this has aided in reducing the urge to engage in sexual activity or attempt to enter into a relationship right now. Reports she has also been making an effort not to overly empathize or identify with other?s problems as she has struggled to prioritize other?s needs over her own in the past. Expressed feeling somewhat less connected with others as a result but is able to see that this make be a healthier level of connection rather than enmeshment. Discussed following through with the goal of doing more independent self-care activities as well, reports creating a goal for herself to do at least one independent activity a week as a start. Went on to share that although she is feeling more positive today, she is concerned by how depressed and hopeless she had felt last week. Believes this may be connected with her menstrual period as she has noticed the week leading up to it tends to impact her mental health. Shared discussing medication options with program psychiatrist yesterday, she is hopeful that starting Prozac will aid in reducing sx severity. Discussed an additional stressor as poor sleep. Reports struggling to go to bed at a normal time and often stays up until 2-3am ?for no reason?. Expressed worsening sx in the morning and believes working to improve her sleep would increase hopefulness and better regulate her emotions in the morning. Denies having a consistent nighttime routine. Willing to work with therapist on creating a nighttime routine to begin implementing and allow herself to wind down for the evening. Pt plans to start this at 10pm and will be in bed no later than 11pm. Additionally, plans to relax before bed with white noise and reading rather than television. Risks/Concerns:: Pt denies any active SI, plan, or intent as of this date, 03/09/24. Progress Toward Goals/Plan:: Some progress noted. Reports she followed through with tx goals from last session and is more actively engaging in positive self-talk and self-care activities. Pt reports improved mood and ability to confidently maintain boundaries as a result. Continue to struggle wi th sleep and motivation in mornings. Pt additionally continues to report significant negative self-talk and body image issues. Recommended to seek body image specific counseling following IOP d/c. Will continue in IOP tx to self- confidence, promote consistent self-care practices, and prevent decompensation. Time Stopped:: 10:12
--- NOTE | 2024-03-09 11:10 | BH.SGPN.GN ---
Behaviors/Verbalizations/Mental Status: []Pt alert and oriented, neatly dressed and groomed. Eye contact good. Motor activity appropriate. Speech within normal limits. Affect congruent, mood anxious Thoughts linear, logical, no signs of hallucinations or delusions Client Response/Progress/Benefit: [] Pt was an active participant during group discussion. Pt was placed in a smaller group and participated in combatting example distortions with peers. Pt was engaged in the smaller group, participated in group interactions to brainstorm answers, and appeared to be comprehending cognitive distortions. Stated she connects a lot with mind-reading, catastrophizing, and personalizing. Pt shared she often over-identifies with things and then ruminates when ?there?s nothing going on.? Benefited from gaining further insight and awareness of cognitive distortions as well as practicing ways to reframe and challenge thoughts. Will continue in IOP to prevent decompensation, improve daily functioning, and increase self-compassion. Narrative Note: []
--- NOTE | 2024-03-13 10:10 | BH.SGPN.GN ---
Behaviors/Verbalizations/Mental Status: []Eye contact is fair. Motor activity is appropriate. Appearance is casual. Speech is Appropriate. Mood is anxious. Affect is constricted. Thoughts are linear and logical. No evidence of psychosis. Client Response/Progress/Benefit: []Pt participated during the group discussion. Attentive during psychoeducation and actively engaged during experiential activity. Participated during interactive discussion on aspects of fixed mindset. Group identified several aspects of fixed mindset which include: inflexible, belief that one cannot grow, absolute thinking, and all of one's skills, traits, and behaviors can't change. Group identified personal examples of fixed thinking in which pt shared personal fixed thoughts as: I need to be better by now, and Medication means I'm weak or crazy. Benefited from increased understanding of personal fixed mindsets and how they can impact mental health. Will continue in IOP to increase confidence, decrease negative thinking, and prevent decompensation.
--- NOTE | 2024-03-13 10:53 | BH.MDN ---
Multi-Disciplinary Note Note 60-min Individual: Time Started:: 09:18 Date: 03/13/24 Purpose of session/treatment goals addressed:: To address recent stressor impacting pt mood stability. Additional goal was to begin working on improving boundaries and pt ability to advocate for her boundaries. Eye Contact:: Good Motor Activity:: Appropriate Appearance:: Casual Speech:: Appropriate Mood:: Anxious and Irritable Affect:: Congruent Thoughts:: Linear, Logical and No evidence of hallucinations/delusions noted Staff Interventions:: thought challenging, motivational interviewing, psychoeducation on: (healthy boundaries and strategies for implementing boundaries), CBT techniques and strengths perspective Client Response:: Pt entered session upset and initially resistant to discussing current stressors impacting her mood. Reported ?I don?t feel like talking? and went on to disclose struggling with brief suicidal ideation the previous night following a disagreement with her mother. Pt shared that she was able to manage these thoughts and has not experienced any since after the fight. Shared that her mother had appeared to already be stressed out by issues with her sisters and pt asking about filing her [place] taxes was the tipping point. Reports the her mother verbally lashed out at pt and left the house. Pt?s father then became upset with pt for not trying to stop her mother. Shared that her parent?s behaviors are often unpredictable, and she feels it does not matter what she does, they end up getting upset regardless. Pt described part of her wants to just give up on treatment as she feels nothing is going to change and is ?going to end up right back where I was anyway?. Receptive of working with therapist to identify the pro?s and con?s of discontinuing treatment and going back to old patterns of coping. Pt able to identify that it will maintain the cycle and she will continue to feel worthless and helpless. Reports knowing this at some level, which is why she got ready and came to group today. Shared she does want things to be different and to feel more confident, but is scared she will be unable to successfully do so. Receptive of discussing the importance of continued skill application over a prolonged period of time to seek sustainable changes. Further discussed wanting to work on improving her boundaries with her parents but feels guilty doing so and not convinced it will be successful. Reviewed some of the boundaries she would like to establish and strategies for beginning to do so. Discussed phrases she can use to assert these boundaries and the importance of being consistent even if given pushback. Pt identified plans to begin with establishing a boundary with her father of knocking before entering her room. Pt appearing more hopeful and positive by end of session. Risks/Concerns:: Reports fleeting SI yesterday without plan or intent, denies any SI, plan, or intent as of this date. Pt future oriented and protective factors noted. Reports ability to maintain safety. Progress Toward Goals/Plan:: Progress variable. Pt had a recent stressor impacting her mood and resulting in the initial impulse to give up on herself and her treatment goals. Willing to challenge this and reframe thoughts. Pt recognizes the importance of continued positive self-talk and working on improving her ability to regulate her emotions in high stress situations. Pt's home life is often toxic which leads to negative self-talk and inconsistent follow-through. However, pt is actively taking steps to challenge old means of coping and break the depressive cycle. Continues to struggle with low confidence, inappropriate guilt, poor boundaries, and depressive sx. Recommended continued IOP tx to improve mood stability, promote healthy boundaries and consistent skill application, as well as prevent decompensation. Time Stopped:: 10:18
--- NOTE | 2024-03-13 11:10 | BH.SGPN.GN ---
Behaviors/Verbalizations/Mental Status: []Pt alert and oriented, casually dressed and groomed. Eye contact good. Motor activity appropriate. Speech within normal limits. Affect congruent, mood dysthymic. Thoughts linear, logical, no signs of hallucinations or delusions. Client Response/Progress/Benefit: [] Pt was an active participant during activity and discussion. Pt did well to remain attentive and participate as group worked on identifying characteristics and benefits of adopting a growth mindset. Worked with fellow participants in reframing the example fixed thoughts into growth mindset thoughts. Pt worked on changing own fixed thought and reframed the thought to ?if I keep working on myself and get healthy support, I will start to feel better.? Pt appeared to benefit from challenging own thoughts and engaging in the activity. Pt will continue IOP tx to combat distorted thought patterns, reduce self-sabotaging behaviors, and gain confidence. Narrative Note: []
== END 2024-03-13 23:59 ==
LOC: BHIOP 08:00
PROVIDERS: Referring Provider Psychiatry & Neurology Psychiatry; Visit Provider Psychiatry & Neurology Psychiatry
DX: F33.2 Major depressive disorder, recurrent severe without psychotic features (principal); F43.10 Post-traumatic stress disorder, unspecified; F41.0 Panic disorder [episodic paroxysmal anxiety]; F50.2 Bulimia nervosa; Z79.899 Other long term (current) drug therapy
CPT/HCPCS: S9480; 90832; 90834; 90837; 90853

== ENCOUNTER 2024-03-14 06:33 | Outpatient (RCR) | payer BC, SELFPAY ==
[2024-03-14 00:53] VITALS: BP 130/73; PULSE 79
--- NOTE | 2024-03-14 09:01 | BH.SGPN.GN ---
Behaviors/Verbalizations/Mental Status: [] Eye contact is good. Motor activity is appropriate. Appearance is casual. Speech is Appropriate. Mood euthymic and agitated. Affect is congruent. Thoughts are linear and logical. No evidence of psychosis. Reviewed daily check in sheet and pt denies active suicidal ideation, plan, intention. Client Response/Progress/Benefit: [] Pt was an active participant in group discussions. Attentive. Patient reported mental positive as finally allowing herself to feel agitated and angry about her numerous frustrating situations throughout her life. Patient stated often she tries to stuff her emotions and not allow herself to feel uncomfortable but has realized the negative impact this has had on her mental health. Patient reported additional mental positive as signing up for yoga which is something she has been wanting to do for a long time. Benefited from group support, encouragement, feedback. Will continue in IOP to increase healthy/coping skills, challenge distortions, and prevent decompensation.
--- NOTE | 2024-03-14 10:10 | BH.SGPN.GN ---
Behaviors/Verbalizations/Mental Status: []Pt alert and oriented, appropriate grooming/appearance. Eye contact good. Motor activity appropriate. Speech within normal limits. Affect congruent, mood anxious and depressed. Thoughts linear, logical, no signs of hallucinations or delusions. Client Response/Progress/Benefit: []Pt was an active participant in group discussions. Attentive during psychoeducation. Contributed during interactive discussions in which peers attempted to define crisis. Pt identified examples of potential crisis. Group also worked together to identify unhealthy responses to crisis which included; isolation, self-harm, substance abuse, avoidance, and distraction. Pt identified personal warning signs as increased not completing her regular chores, seeking reassurance from people she knows are unhealthy for her, and overuse of distraction. Benefited from increased understanding of crisis and awareness of personal responses to crisis. Pt will continue IOP tx to reduce self-deprecating thoughts, increase healthy coping and boundary setting skills, and prevent decompensation. Narrative Note: []
--- NOTE | 2024-03-14 11:10 | BH.SGPN.GN ---
Behaviors/Verbalizations/Mental Status: []Eye contact is good. Motor activity is appropriate. Appearance is casual. Speech is Appropriate. Mood is anxious, dysthymic. Affect is congruent. Thoughts are linear and logical. No evidence of psychosis. Client Response/Progress/Benefit: [] Pt was an active participant in group discussions. Attentive during psychoeducation. In small group pt along with peers developed an active plan for their crisis warning signs. Pt identified three crisis warning signs as well as an action plan for each. One crisis warning sign was over seeking out toxic people. Pt identified coping skills to help with this such as: using distractions, reading affirmations, reading prewritten reminders of the costs of doing so, keeping them blocked. Benefited from increased awareness of crisis warning signs and by developing crisis intervention strategies. Will continue in IOP to prevent decompensation, increase distress tolerance, improve boundaries, and maintain mood stability. ? Narrative Note: []
--- NOTE | 2024-03-16 09:00 | BH.SGPN.GN ---
Behaviors/Verbalizations/Mental Status: [] Eye contact good. Motor activity appropriate. Speech within normal limits. Affect congruent, mood dysthymic. Thoughts linear, logical, no signs of hallucinations or delusions. Reviewed client?s symptom tracker, denies SI, plan, or intent as of 03/16/2024. Client Response/Progress/Benefit: [] Client receptive of session, attentive and willing to process with group. Identified mental health ?wins? today as engaging in healthier coping habits following court yesterday. Notes she typically struggles with isolating and negative self-talk when faced with stressors; however did well to follow through with her coping plan. Discussed spending time with her sister and mowing which she found to be relaxing and healthy distractions. Additional win noted as completing a full day of work without feeling overwhelmed or anxious. Current stressor noted as getting to group on time. Did well to identify several skills she can utilize to promote healthier time boundaries with herself. Was receptive of group support. Recommended continued IOP tx to continue to promote mood stability, as well as consistent skill application, and prevent decompensation. Narrative Note: []
--- NOTE | 2024-03-16 10:20 | BH.SGPN.GN ---
Behaviors/Verbalizations/Mental Status: []Pt alert and oriented, casually dressed and groomed. Eye contact poor. Motor activity appropriate. Speech within normal limits. Affect congruent, mood engaged. Thoughts linear, logical, no signs of hallucinations or delusions. ? Client Response/Progress/Benefit: []Pt responded well to session, attentive and engaged. Pt participated in activity where pts had to guess the celebrity with a known mental health diagnosis and this led to discussion on self-stigma. Group participated in the discussion defining stigma as well as what stigma has kept pt's from doing in their lives. Pt stated mental health stigma has led pt to feel exhausted and childish at times pt also stated she has labeled herself a failure because of her mental health stigma in the past. Pt has been working on overcoming internal and societal stigma, and acknowledged that internal stigma has been harder to combat. Pt shared in her family there was a lot of mental health stigma pt has had to try and overcome. Pt worked with peers to begin discussion of what reinforces stigma and this was discussed further in the next group. Pt appeared to benefit from learning about the different types of stigma as well as gaining awareness of how stigma as personally impacted pt. Pt will continue IOP tx to promote mood stability, combat distortions, and increase self-compassion. Narrative Note: []
--- NOTE | 2024-03-16 11:15 | BH.SGPN.GN ---
Behaviors/Verbalizations/Mental Status: []Client alert and oriented, casually dressed and groomed. Eye contact good. Motor activity appropriate. Speech within normal limits. Affect congruent, mood euthymic. Thoughts linear, logical, no signs of hallucinations or delusions. Client Response/Progress/Benefit:?[] Client engaged participant AEB participating in the activity, providing input during small group discussion, and listening attentively to others. Client appeared to connect with discussion in the benefits of addressing mental health stigma which included: improved relationships, increased willingness to seek help, increased happiness, and improved confidence. Group brainstormed strategies to combat social and perceived stigma. ?Client shared one thing she can personally do to combat stigma is to decrease how often she apologizes for things she isn't doing wrong. Appeared to benefit from increasing awareness of strategies to combat stigma. Will continue IOP tx to continue improving view of self, challenge negative thoughts, and prevent decompensation.
--- NOTE | 2024-03-21 09:05 | BH.SGPN.GN ---
Behaviors/Verbalizations/Mental Status: [] Eye contact is good. Motor activity is appropriate. Appearance is casual. Speech is Appropriate. Mood is anxious. Affect is congruent. Thoughts are linear and logical. No evidence of psychosis. Reviewed daily check in sheet and no reports of suicidal ideations or intent. Client Response/Progress/Benefit: [] Pt participated when prompted. Attentive. Daily symptom tracker notes 3/5 for depression, anxiety, irritability, and self-harm urges. Pt states a mental health win is being here on time. She is anxious about a physician appointment this afternoon in [place]. She is anxious about driving to the appointment and getting answers. She did not disclose the current medical concerns to the group. She briefly elaborated on the thoughts are are exacerbating her anxiety. Group provided support, encouragement, and feedback which was beneficial. Provided examples of strategies that help them manage anxiety related to driving. Pt states I'm ready for it. Will continue in IOP to prevent decompensation, stabilize mood, and improve functioning. Narrative Note: []
--- NOTE | 2024-03-21 10:10 | BH.SGPN.GN ---
Behaviors/Verbalizations/Mental Status: []Pt alert and oriented, neatly dressed and groomed. Eye contact good. Motor activity appropriate. Speech within normal limits. Affect flat, mood anxious and depressed. Thoughts linear, logical, no signs of hallucinations or delusions. Client Response/Progress/Benefit: []Pt active participant AEB pt providing input throughout group discussion. Pt less attentive at times today due to ongoing stressors, but still engaged in small group. Showed engagement during small group discussions and worked with group on identifying how each defense mechanism can impact mental health and gave examples. Pt was engaged during small group discussion and expressed connecting with several of the defense mechanisms reviewed. Pt reported connecting with projection, anticipation, denial, suppression, and humor. ?Seemed to benefit from gaining awareness about the different defense mechanisms. Pt to continue IOP tx to promote mood stability, reduce negative self-talk, and improve overall functioning. ?? Narrative Note: []
--- NOTE | 2024-03-21 11:10 | BH.SGPN.GN ---
Behaviors/Verbalizations/Mental Status: []Pt alert and oriented, neatly dressed and groomed. Eye contact good. Motor activity appropriate. Speech within normal limits. Affect congruent, mood depressed. Thoughts linear, logical, no signs of hallucinations or delusions. Client Response/Progress/Benefit: [] Pt responded well to session, participating in activity and small group discussion. Group reviewed the rest of the defense mechanisms and discussed how these are adaptive, maladaptive, or somewhere in the armstrong. Pt participated in the experiential activity which encouraged pts to draw a castle that portrayed their different defense mechanisms. Pt's defense mechanisms included denial, suppression, humor, projection, and anticipation. Pt shared many of her defense mechanisms are maladaptive, but humor and suppression can be ?armstrong.? Pt stated today she learned ?my defense mechanisms mostly make things worse for myself.? Pt listened to coil winder teach different skills to help pt?s cope with or change their defense mechanisms. Pt appeared to benefit from gaining insight to the different defense mechanisms and learning coping skills. Pt will continue IOP tx to promote mood stability, combat distortions, and increase self-confidence. Narrative Note: []
--- NOTE | 2024-03-23 10:10 | BH.SGPN.GN ---
Behaviors/Verbalizations/Mental Status: [] Eye contact is good. Motor activity is appropriate. Appearance is casual. Speech is Appropriate. Mood is depressed. Affect is congruent. Thoughts are linear and logical. No evidence of psychosis Client Response/Progress/Benefit: [] Client participated at times during group discussion. Active during experiential activity. Attentive during psychoeducation on resilience. Attentive during interactive discussion with peers on the definition of resilience. Attentive as peers worked together to identify what can impact one's ability to be resilient which included; relationships. past experiences, trauma, support system, lack of resources,and current mental/physical health state. Attentive as peers worked together to identify the benefits of being resilient which included; increased self-worth, increased ability to cope, personal growth, can inspire others, and increased confidence. Able to relate experiential activity of group juggle to topics of resilience. Worked well with peers in small group in which they identified factors that contribute to resilience. Benefited from increased awareness of resilience and the factors that contribute to building resilience. Will continue in IOP to maintain safety, stabilize mood, increase healthy coping,and improve functioning. Narrative Note: []
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
--- NOTE | 2024-03-23 11:10 | BH.SGPN.GN ---
Behaviors/Verbalizations/Mental Status: []Pt alert and oriented, casually dressed and groomed. Eye contact good. Motor activity appropriate. Speech within normal limits. Affect congruent, mood dysthymic. Thoughts linear, logical, no signs of hallucinations or delusions. Client Response/Progress/Benefit: []Pt responded well to session AEB completing the resilience worksheet provided. Pt participated in the discussion and worked cooperatively with group to identify strategies to enhance each of the components discussed. Pt reports belief they already use resilience trait of??self-awareness?, avoid seeing crises as insurmountable and ?accept that change is a part of living?. Pt stated they would like to continue to develop resilience trait of ?Take care of yourself? as pt feels she would benefit from incorporating regular movement/exercise, positive self-talk, and consistent application of boundaries. Pt seemed to benefit from discussing strategies for improving personal resilience and identifying resilience traits pt already possesses. Will continue IOP tx to prevent decompensation, improve daily functioning, and increase self-compassion and boundary setting skills.? Narrative Note: []
--- NOTE | 2024-03-26 09:05 | BH.SGPN.GN ---
Behaviors/Verbalizations/Mental Status: [] Eye contact is good. Motor activity is appropriate. Appearance is casual. Speech is Appropriate. Mood is anxious. Affect is congruent. Thoughts are linear and logical. No evidence of psychosis. Reviewed daily check in sheet and pt reports 1/5 for suicidal thoughts and 0/5 for intent. Below baseline. Client Response/Progress/Benefit: [] Pt was an active participant in group discussion. Attentive. Daily symptom tracker notes 1/5 for depression, anxiety, and self-harm urges. Emotion for today is uplifting. Shared several acute stressors in the past week which have impacted her overall mental health. I should be worse but I'M ok. Pt has seemingly used the recent stressors as a form of motivation to practice her skills. Utilizing her anger in a positive manner to evoke change. Communicating assertively and setting boundaries. Changing her unrealistic expectations for her relationships its ok to take what is beneficial from relationships and not feel like a failure if the relationship is not perfect. Increased confidence. Shared examples of reframing/challenging thoughts. I don't have to worry about everyone and everything. Progress noted per pt report. Benefited from group support, encouragement, and feedback. Will continue in IOP to maintain safety, increase healthy coping, and improve functioning. Narrative Note: []
--- NOTE | 2024-03-26 10:10 | BH.SGPN.GN ---
Behaviors/Verbalizations/Mental Status: []Patient was alert and oriented, casually dressed and groomed. Eye contact was good, motor activity normal, speech within normal limits. Affect full, mood positive and happy. Thoughts linear, logical, no signs of hallucinations or delusion Client Response/Progress/Benefit: []Pt participated in the group discussions AEB providing input and taking notes. Attentive during psychoeducation Goal Setting. Participated during the discussion on common barriers which the group identified as: lack of motivation, making excuses, not feeling good enough, and lack of support. Group also identified benefits sense of purpose, improved self-confidence, more motivation for other goals, and improved mental health. Pt reports struggling specifically with barriers of procrastination and fear of others expecting same performance every time. Benefited from increased awareness of mental health benefits of goals as well as psychoeducation on SMART goal criteria. Will continue in IOP to increase consistent use of healthy coping skills, build confidence, and prevent decompensation.
--- NOTE | 2024-03-26 11:00 | BH.SGPN.GN ---
Behaviors/Verbalizations/Mental Status: []Pt alert and oriented, casually dressed and groomed. Eye contact good. Motor activity appropriate. Speech within normal limits. Affect congruent, mood euthymic. Thoughts linear, logical, no signs of hallucinations or delusions. Client Response/Progress/Benefit: [] Pt was engaged during discussion and willing to complete the worksheet challenging them to develop a personal SMART goal. Pt chose the goal of arriving to IOP tx by 9am 2x in the next week. Pt stated this will improve motivation, personal accountability, increase confidence, and improve self-care. Pt identified negative self-talk, poor time management, and anxiety as potential barriers. Identified solutions such as saying to affirmations outloud from her affirmation jeronimo, setting an alarm early enough to complete morning routine, and deep breathing. Pt receptive to identifying solutions for these barriers and willing to begin working on this goal. Benefited from this group by developing a short-term SMART goal related to mental health. Will continue IOP tx to increase healthy coping skills, promote mood stability, and prevent decompensation. Narrative Note: []
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
--- NOTE | 2024-03-27 11:15 | BH.SGPN.GN ---
Behaviors/Verbalizations/Mental Status: []Pt alert and oriented, neatly dressed and groomed. Eye contact good. Motor activity appropriate. Speech within normal limits. Affect congruent, mood euthymic. Thoughts linear, logical, no signs of hallucinations or delusions. Client Response/Progress/Benefit: [] Pt was an active participant in group discussions and experiential activity. Attentive during psychoeducation on the 4 A's (Avoid, adapt, alter, accept) of coping with stress. Shared that they would benefit most from avoiding and altering stressors in her jar. Pt wants to avoid using unhealthy coping skills including sex and she wants to alter how she talks to herself. Was able to identify the connection between the experiential activity and utilization of stress management skills. Benefited from increased awareness of stress management strategies. Pt will continue IOP tx to promote mood stability, increase distress tolerance skills, and improve self-confidence. ? Narrative Note: []
--- NOTE | 2024-03-28 10:10 | BH.SGPN.GN ---
Behaviors/Verbalizations/Mental Status: [] Eye contact is good. Motor activity is appropriate. Appearance is casual. Speech is Appropriate. Mood is euthymic and positive. Affect is congruent. Thoughts are linear and logical. No evidence of psychosis. Client Response/Progress/Benefit: [] Pt receptive to session AEB contributing to small group discussion, as well as listening attentively to others, and taking notes. Worked with group to brainstorm the positive and negative aspects of stress on physical and mental health as well as the impact of distress on performance, relationships, and mental health. Pt shared her top stressors to be: Bills and money, poor time management, negative relationship with food, and work. Shared when feeling overwhelmed with stress she tends to lash out, isolate, step back from progress, and avoid.. Benefited from increased awareness of positive and negative stress as well as how stress impact individuals. Will continue in IOP to continue utilization of healthy coping skills, improve view of self, and prevent decompensation.
--- NOTE | 2024-03-30 09:00 | BH.SGPN.GN ---
Behaviors/Verbalizations/Mental Status: [] Pt alert and oriented, neatly dressed and groomed. Eye contact good. Motor activity appropriate. Speech within normal limits. Affect congruent, mood euthymic. Thoughts linear, logical, no signs of hallucinations or delusions. Reviewed pt?s symptom tracker, no risk for suicidal ideation, plan, or intent 03/30/24 Client Response/Progress/Benefit: []Pt responded well to session, attentive and engaged. Pt reports on the daily symptom tracker that her mood and functioning is better this week. Pt's mood today is chill and pt reflected on the progress she has made. Pt shared I'm reframing my perspective, I'm doing a lot of little things, and I'm noticing that life can be beautiful. Pt shared she is stressed about leaving and about finding a new therapist, but pt is trying to remind herself of the positives. Pt appeared to benefit from reflecting on progress. Pt will continue IOP tx to promote gains, reinforce healthy coping skills, and improve self-confidence. Narrative Note: []
--- NOTE | 2024-03-30 10:10 | BH.SGPN.GN ---
Behaviors/Verbalizations/Mental Status: [] Eye contact is good. Motor activity is appropriate. Appearance is casual. Speech is Appropriate. Mood is euthymic. Affect is full. Thoughts are linear and logical. No evidence of psychosis. Client Response/Progress/Benefit: [] Client was an active participant during interactive group discussions. Attentive during psychoeducation on the six types of boundaries (physical, emotional, intellectual, sexual, time, and material) AEB note-taking and input in group discussions. Along with peers contributed to interactive discussion on defining what a boundary is in mental health. Client along with peers identified challenges to setting boundaries which included; fear of conflict, being uncomfortable, believing they are being rude or mean, etc. Client along with peers identified the benefits to setting boundaries such as healthier relationships, stronger sense of self, and improved confidence. Client benefited from increased awareness and insight on the importance/benefit to setting health boundaries. Will continue in IOP to prevent decompensation, maintain safety, and increase healthy coping. Narrative Note: []
--- NOTE | 2024-03-30 11:10 | BH.SGPN.GN ---
Behaviors/Verbalizations/Mental Status: [] Eye contact is good. Motor activity is appropriate. Appearance is casual. Speech is Appropriate. Mood is euthymic and positive. Affect is bright. Thoughts are linear and logical. No evidence of psychosis. Client Response/Progress/Benefit: [] Client responded well to session AEB listening attentively to peers, providing some input, as well as taking notes throughout. Client contributed throughout psychoeducation on different boundary setting styles. Stated has been working on having healthier boundaries in several areas. Recognizes her anxiety impacts her ability to on time to appointments. Participated in group discussion brainstorming various strategies for improving healthy boundary settings, as a group identified starting with easy/small boundaries, opening up to one trusted person and not overly apologizing as strategies to try. Seemed to benefit from challenge distorted thoughts, increase healthy coping skills, and prevent decompensation.
--- NOTE | 2024-04-02 09:01 | BH.SGPN.GN ---
Behaviors/Verbalizations/Mental Status: [] Pt eye contact fair, casually dressed, motor activity appropriate, speech normal rate and tone, mood euthymic and positive. bright affect, thoughts linear and intact, no evidence of delusions or hallucinations. Per daily symptom tracker pt denies active SI and intention. Client Response/Progress/Benefit: [] Client appeared to listen attentively to others and sharing openly with group. Client stated she is feeling linen aide this morning. Client reported mental health positive as starting to enjoy be around others and worrying less about what others think. Client stated she was able to spend time with friends over the weekend and be more in the moment. Client stated additional positive is her mom started therapy which thus far has started to improve their relationship. Appeared to benefit from support from peers. Will continue IOP tx to continue use of healthy coping skills, continue to work on building confidence, and prevent decompensation.
--- NOTE | 2024-04-02 10:10 | BH.SGPN.GN ---
Behaviors/Verbalizations/Mental Status: [] Eye contact is good. Motor activity is appropriate. Appearance is casual. Speech is Appropriate. Mood is euthymic. Affect is full. Thoughts are linear and logical. No evidence of psychosis. Client Response/Progress/Benefit: [] Pt participated at times. Attentive. Participated in and was engaged during experiential activity. Able to relate experiential activity to group topic of FOF. Engaged during interactive discussion on what failure means to the group in which peers identified and defined failure and Fear of Failure. Group was able to identify impact of fear of failure on mental health identifying that it can cause procrastination, avoidance, self-sabotage behaviors, etc. Attentive during interactive discussion on the impact that FOF can have on mental wellness, depression, anxiety, career, relationships, and growth. Benefited from increased awareness of how the role that FOF plays in mental health and decision-making. Will continue in IOP to prevent decompensation, increase healthy coping, and improve functioning. Narrative Note: []
--- NOTE | 2024-04-02 11:08 | BH.SGPN.GN ---
Behaviors/Verbalizations/Mental Status: []Pt alert and oriented, neatly dressed and groomed. Eye contact good. Motor activity appropriate. Speech within normal limits. Affect congruent, mood euthymic. Thoughts linear, logical, no signs of hallucinations or delusions. Client Response/Progress/Benefit: []Pt responded well to session, engaged in the experiential activity and attentive throughout group processing. Pt reported fear of failure has kept pt from trying new things and from growing mentally. Pt completed fear of failure worksheet and was able to identify thoughts and behaviors that reinforce personal fear of failure including not setting boundaries, negative thinking patterns, and relying on validation from others instead of self-validation. Pt participated in group discussion regarding strategies to overcome fear of failure. Identified wanting to work on avoiding unnecessary stressors such as things that pt knows will make her feel sad. Appeared to benefit from increased knowledge of strategies to combat fear of failure and gaining self-awareness. Pt will continue IOP tx to promote mood stability, reduce use of unhealthy coping skills, and improve daily functioning. Narrative Note: []
--- NOTE | 2024-04-04 09:05 | BH.SGPN.GN ---
Behaviors/Verbalizations/Mental Status: [] Eye contact is good. Motor activity is appropriate. Appearance is casual. Speech is Appropriate. Mood is euthymic. Affect is full. Thoughts are linear and logical. No evidence of psychosis. Reviewed daily check in sheet and no reports of suicidal ideations or intent. Client Response/Progress/Benefit: [] Pt was an active participant in group discussions. Attentive. Emotion for today is mellow and secure. Daily symptom tracker notes 12/19 for anxiety. Able to identify mental health wins and healthy habits. Shared that she is anxious about coming discharge from IOP this week. Able to identify her progress in the last few weeks and feels increased confidence in her ability to manage stress and emotions. She also has an aftercare plan set and is looking forward to meeting her new outpatient therapist. Increased ability to complete tasks rather than avoid them. Increased awareness of cognitive distortions and skills to challenge. Gave example of challenging absolute thinking. Progress noted. Benefited from group support, encouragment, and feedback. Will continuie in IOP to prevent decompensation and maintain gains. Plan to discharge on 04/06/24 Narrative Note: []
--- NOTE | 2024-04-04 11:10 | BH.SGPN.GN ---
Behaviors/Verbalizations/Mental Status: [] Client alert and oriented, casually dressed and groomed. Eye contact good. Motor activity appropriate. Speech within normal limits. Affect congruent, mood dysthymic. Thoughts linear, logical, no signs of hallucinations or delusions. Client Response/Progress/Benefit: [] Client responded well to session, engaged and taking notes throughout. Worked with group to connect components of the experiential activity with characteristics of healthy and unhealthy relationships. Attentive during psychoeducation about characteristics of healthy, unhealthy, and abusive relationships. Client stated her goal to improve relationships is to stand her ground with her communication and boundaries. Client stated she also wants to stop reverting to a man as a form of distraction. Appeared to benefit from identifying current healthy relationship attributes and an area client wants to work on to build healthier relationships. Client to continue IOP to promote healthy coping skills, challenge distorted thoughts, and prevent decompensation.
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
--- NOTE | 2024-04-05 10:10 | BH.SGPN.GN ---
Behaviors/Verbalizations/Mental Status: []Pt alert and oriented, casually dressed and groomed. Eye contact good. Motor activity appropriate. Speech within normal limits. Affect congruent, mood euthymic and anxious. Thoughts linear, logical, no signs of hallucinations or delusions. Client Response/Progress/Benefit: [] Pt was an active?participant in group discussion identifying benefits of healthy relationships which included improved connections, accountability, and personal growth. Group identified factors that lead to unhealthy relationships. Pt?s personal factors included accepting of toxic people and behaviors, poor boundaries, and not communicating/shutting down. Actively participated in group experiential activity and expressed ideas to group. Benefited from increased insight and awareness of benefits of healthy relationships and factors that contribute to unhealthy relationships. Will continue IOP tx to promote mood stability, increase self-care practices and coping skill application, and improve daily functioning. Narrative Note: []
--- NOTE | 2024-04-06 09:05 | BH.SGPN.GN ---
Behaviors/Verbalizations/Mental Status: []Pt alert and oriented, neatly dressed and groomed. Eye contact good. Motor activity appropriate. Speech within normal limits. Affect congruent, mood euthymic and anxious. Thoughts linear, logical, no signs of hallucinations or delusions. Reviewed pt?s symptom tracker, no risk for suicidal ideation, plan, or intent 04/06/24 Client Response/Progress/Benefit: []Pt responded well to session, attentive and engaged. Pt reports feeling bubbly this morning on her last day of IOP tx. Pt reflected on her growth since starting IOP and shared she is so proud of myself for completing it this time. Pt reports she noticed that this time through the program she felt ready to face the hard truths and accept that some of her behaviors were contributing to pt being stuck. Pt reports she has been giving herself credit, changing her perspective, and setting boundaries. Pt appeared to benefit from recognizing personal progress and connecting with peers. Pt will discharge from IOP tx today as pt has accomplished her tx goals and no longer meets criteria for IOP level of care. Narrative Note: []
--- NOTE | 2024-04-06 10:15 | BH.SGPN.GN ---
Behaviors/Verbalizations/Mental Status: []Eye contact is good. Motor activity is appropriate. Appearance is casual. Speech is Appropriate. Mood is content, euthymic. Affect is full, bright. Thoughts are linear and logical. No evidence of psychosis. Client Response/Progress/Benefit: [] Pt was an active participant in activity and taking notes during group discussion. Attentive during psychoeducation and interactive discussion on coping skills included why people use unhealthy skills. Group came up with list of unhealthy coping skills and pt identified personal ones as avoidance, escaping in other;s problems, seeking out toxic people, and not practicing self-care. Group discussed the effects of how unhealthy coping skills can impact mental health in a negative way. Participated during experiential activity and was able to relate the activity to group topic regarding the benefits of developing strong internal and external support system. Benefited from increased understanding of unhealthy coping skills and the need for developing healthy internal and external coping skills. Pt will d/c from IOP tx and continue outpatient tx to prevent decompensation, promote continued mood stability, and improve daily functioning. ? Narrative Note: []
--- NOTE | 2024-04-06 11:15 | BH.SGPN.GN ---
Behaviors/Verbalizations/Mental Status: []Pt alert and oriented, casually dressed and groomed. Eye contact good. Motor activity appropriate. Speech within normal limits. Affect congruent, mood euthymic and positive. Thoughts linear, logical, no signs of hallucinations or delusions. Client Response/Progress/Benefit: [] Pt responded well to session, taking notes and contributing when prompted. Group discussed the different categories of coping skills which included distraction, emotional release, grounding, self-love, and thought challenging. Pt participated in creating a coping skills ?menu? from the five categories of coping skills. Pt's coping skill menu included: not hanging out with people out of guilt, deep breathing, wearing clothes that make her feel comfortable, and catching negative/catastrophizing thoughts. Appeared to benefit from increasing repertoire of healthy coping skills. Will continue IOP to improve view of self, challenge distortions, and prevent decompensation.
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
--- NOTE | 2024-04-06 11:46 | BH.IGGP_ITS ---
Aftercare Plan Demographics Treatment End Date:: 04/06/24 Psychiatrist:: Carmen Zuñiga Psychiatrist Office #:: [phone] [facility]/IOP Therapist:: Carol Hurley Therapist Phone #:: [phone] Medications Home Medications sumatriptan succinate 25 mg tablet See Rx Instructions PO .COMPLEX #12 TABLETS 07/13/23 fluoxetine 10 mg capsule (Prozac) 10 mg PO DAILY 30 days #30 caps 03/07/24 Plan Details Progress/Aftercare Plan Details:: Analisa has responded well to treatment as evidenced by Analisa consistently attending IOP sessions and her reduction of DSM-5 scores since admission. Jill was always attentive and receptive to learning during group and individual sessions. Analisa actively applied coping skills outside of IOP and reports overall her mood is improved and she is functioning better than she was several months ago. Analisa?s overall symptom reduction is 72.5% since admission with anger decreasing by 100%, depression decreasing by 67%, and anxiety decreasing by 70%. Pt has increased self- compassion and faced many hard things. Most importantly, Pt has become more capable of setting and maintaining boundaries, assertive, and confident in her abilities. Strategies for Success:: 1. Opposite action! Continue to break that cycle of anxiety, guilt, and depression by not letting emotions be the only drivers of your bus. 2. Remember that thoughts are thoughts NOT facts! You have power in if you give thoughts the time of day or not. 3. self-care! You deserve to take time for you and you also deserve to face the not so fun self-care like setting boundaries and advocating for your needs 4. Self-compassion! You are human and you will make a mistake?BUT that doesn?t mean you are a failure or not good enough. Give yourself credit for all the wonderful things you do. 5. Continue to practice acceptance and remember acceptance means loving this version of you 6. Practice positive self-talk and keep track of your wins. 7. Remember progress isn?t linear! You may have a setback or bump in the road, but that doesn?t mean you?ve lost all progress. 8. self-reflection and self-awareness. 9. Be understanding with yourself and try to see the whole picture, not just the snapshot. 10. Live in the nieves!! Appointments Appointments/Referrals to Other Services:: Pt will follow up with her outpatient therapist, Mere, at [facility] for individual counseling. Pt is not currently taking any psychiatric medication. Pt will start IOP aftercare on 04/12/24.
== END 2024-04-06 12:25 | disposition home or self-care (01) ==
LOC: BHIOP 06:33
PROVIDERS: Referring Provider Psychiatry & Neurology Psychiatry; Visit Provider Psychiatry & Neurology Psychiatry
DX: F33.2 Major depressive disorder, recurrent severe without psychotic features (principal); F43.10 Post-traumatic stress disorder, unspecified; F41.0 Panic disorder [episodic paroxysmal anxiety]; F50.2 Bulimia nervosa; Z79.899 Other long term (current) drug therapy
CPT/HCPCS: S9480; 90832; 90834; 90837; 90853

== ENCOUNTER 2024-03-19 12:45 | Emergency (ER) | payer BC, SELFPAY ==
[2024-03-19 12:46] VITALS: BP 109/64; PULSE 73; RESP 17; TEMP 36.4; O2SAT 96; BMI 21.7
--- NOTE | 2024-03-19 14:06 | EDS_ITS ---
HPI History of Present Illness Chief Complaint: Abd Pain PFSH PFS Medical History History of bulimia nervosa Major depressive disorder, recurrent severe without psychotic features Migraine Panic disorder PTSD (post-traumatic stress disorder) Home Medications sumatriptan succinate 25 mg tablet See Rx Instructions PO .COMPLEX #12 TABLETS 07/13/23 [Rx Last Taken Unknown] fluoxetine 10 mg capsule (Prozac) 10 mg PO DAILY 30 days #30 caps 03/07/24 [Rx Last Taken Unknown] Allergy/AdvReac Type Severity Reaction Status Date / Time citalopram [From Celexa] AdvReac Unknown UNKNOWN Verified 02/15/24 09:25 sertraline [From Zoloft] AdvReac Unknown UNKNOWN Verified 02/15/24 09:25 Family History Other Arthritis Cancer Hypertension Thyroid disorder Surgical History Hx of tonsillectomy Social History Smoking Status: Never smoker alcohol intake: never EXAM Physical Exam Const Vital Signs: 03/19/24 12:46 03/19/24 15:06 Temperature 97.5 F L Temperature Source Temporal Pulse Rate 73 69 Respiratory Rate 17 16 Blood Pressure 109/64 118/74 Blood Pressure Mean 79 88 Pulse Ox 96 98 Oxygen Delivery Method Room Air Room Air MDM MDM MDM Narrative Medical decision making narrative: HISTORY OF PRESENT ILLNESS: 23-year-old female presents with difficulty hearing out of right ear. She also endorses abdominal pain for 1 month. she further states REVIEW OF SYSTEMS: Pertinent positives: Changes in hearing, diarrhea, abdominal pain Pertinent negatives: Headache, fever, sore throat, vomiting, melena, he matochezia, urinary complaints, vaginal bleeding or discharge PHYSICAL EXAM: Nursing triage notes reviewed, Vital signs reviewed Constitutional: please see mdm HENT: MMM, right TM pearly armstrong with good reflex however there is obvious fluid noted behind the eardrum, there is no hyperemia noted. There is no cerumen impaction noted. There is no mastoid tenderness. Eyes: Pupils equal round and reactive to light, Extraocular muscles intact Neck: No stridor, no JVD, full neck ROM Lungs: Clear to auscultation, No wheezing or rales. No increased work of breathing, no conversational dyspnea, no accessory muscle use, no nasal flaring. No respiratory distress noted Heart: Regular rate and rhythm, No murmurs, No rubs and No gallops, 2+ distal pulses (radial, femoral, posterior tibial) in all extremities Abdomen: Soft, there is no tenderness, rigidity, rebound or guarding, no obvious peritoneal signs, no palpable pulsatile abdominal masses, no auscultated abdominal bruit : No CVAT Extremities: No edema Neuro: No focal neurological deficits, cranial nerves II through XII intact, 5/5 strength in all extremities. Intact sensation to light touch in all extremities, 2+ reflexes bilateral patella tendons. Normal gait. No ataxia. Skin: No rash or lesions noted MEDICAL DECISION MAKING: Chief Complaint: Change in hearing, abdominal pain External records reviewed: Imaging reviewed: No recent Henriquez imaging of the abdomen pelvis noted Factors affecting care: Depression, anxiety, bulimia, PTSD Social determinants of health: none History obtained from others: none Consults: none [facility] Narrative: The patient was hemodynamically stable, afebrile, nontoxic-appearing. Abdomen was soft nontender with no peritoneal signs. I considered the following differential diagnosis: AAA, small bowel obstruction, abdominal perforation, appendicitis, pancreatitis, hepatobiliary pathology (acute cholecystitis), mesenteric ischemia, pathology (ie nephrolithiasis, pyelonephritis). Ectopic , tubo-ovarian abscess, ovarian torsion. Cerumen infection, otitis media, otitis externa I obtained a broad lab workup to further elucidate etiology of his complaints. I consider obtaining advanced imaging the abdomen pelvis however the patient's exam was not consistent with perforation obstruction or other acute surgical abdominal pathology. I treat the patient with 1 L normal saline and Tylenol. ALL IMAGES (IF OBTAINED) HAVE BEEN PERSONALLY REVIEWED AND INTERPRETED BY MYSELF. CBC without leukocytosis, severe anemia, no thrombocytopenia. BMP without evidence of significant electrolyte abnormalities, no anion gap, no acute kidney injury. LFTs with noted hyperbilirubinemia of unclear etiology certainly without right upper quadrant tenderness or positive Cerna sign is unlikely be evidence of hepatobiliary obstruction Urinalysis shows no evidence of urinary inflammation suggestive of UTI Urine test is negative The synthesis of the patient's history, physical exam, lab suggest no acute life or limb threatening etiology specifically no acute surgical abdominal pathology. Will give follow-up instructions for outpatient ultrasound given hyperbilirubinemia otherwise strict return precautions for the ED. The patient and/or family, caregivers express understanding. The patient and/or family, caregivers agrees with the plan. Shared decision making: I will have a discussion with the patient and or visitors regarding risk/benefits of further testing or admission. They will be made aware of of the risk/benefits inherent in this decision they will be given the opportunity to voice understanding. Total critical care time today provided was at least 0 minutes. This excludes separately billable procedures. Critical care time (if documented) is secondary to the patient having high probability of clinically significant/life threatening deterioration in the patient's condition which required my urgent intervention. Impression: 1. Right ear effusion 2. Abdominal pain 3. Diarrhea 4. Hyperbilirubinemia Dispo: Discharge home This note was generated with Single [employer] dictation software. It may contain incorrect words, spelling, and punctuation that were not noted in review of the chart prior to signing. Lab Data Labs: Laboratory Results - last 24 hr 03/19/24 03/19/24 15:10 16:13 WBC 5.6 RBC 4.67 Hgb 14.0 Hct 42.0 MCV 89.9 MCH 30.0 MCHC 33.3 RDW Std Deviation 38.5 RDW Coeff of Maged 11.9 Plt Count 283 MPV 9.0 Immature Gran % (Auto) 0.200 Neut % (Auto) 63.7 Lymph % (Auto) 25.8 [place] % (Auto) 9.1 Eos % (Auto) 0.5 Baso % (Auto) 0.7 Absolute Neuts (auto) 3.6 Absolute Lymphs (auto) 1.44 Nucleated RBC % 0 Sodium 141 Potassium 3.9 Chloride 109 H Carbon Dioxide 27.0 Anion Gap 5 BUN 7 Creatinine 0.69 Estim Creat Clear Calc 105.79 Est GFR (MDRD) Af Amer 137 Est GFR (MDRD) Non-Af 113 BUN/Creatinine Ratio 10.1 Glucose 87 Calcium 9.3 Total Bilirubin 1.80 H AST 12 L ALT 14 Alkaline Phosphatase 55 Total Protein 7.2 Albumin 4.2 Globulin 3.0 Albumin/Globulin Ratio 1.4 Urine Color Yellow Urine Clarity Cloudy Urine pH 6.0 Ur Specific [place] 1.025 Urine Protein 15 H Urine Glucose (UA) Normal Urine Ketones 50 H Urine Occult Blood 10 H Urine Nitrite Negative Urine Bilirubin Negative Urine Urobilinogen Normal Ur Leukocyte Esterase 100 H Urine RBC 0 SEEN Urine WBC 0-5 SEEN Ur Squamous Epith Cells 25-50 SEEN Urine Bacteria 3+ Urine Mucus 0 SEEN Urine Test Negative Discharge Plan Triage Chief Complaint: Abd Pain Other Complaint: Ear Problem ED Provider: Klever Larson Dx/Rx/DC Orders Prescriptions: No Action sumatriptan succinate 25 mg tablet See Rx Instructions PO .COMPLEX Qty: 12 1RF Rx Instructions: take 1 tab at onset of headache; if no relief may repeat 1 tab after at least 2 hrs; max = 4 tabs/24 hr PO fluoxetine [Prozac] 10 mg capsule 10 mg PO DAILY 30 Days Qty: 30 0RF Primary Care Provider: Keli Lee NP Referrals: Care Physician,No Primary [Non-Staff] -
[2024-03-19 15:06] VITALS: BP 118/74; PULSE 69; RESP 16; O2SAT 98
[2024-03-19] MEDS: 0.9% Normal Saline (1000mL) 1,000 ML 1000 ML IV (15:08)
[2024-03-19] MEDS: Acetaminophen 325 MG Tablet 650 MG PO (15:08)
[2024-03-19 15:27] LABS: Absolute Lymphocyte Count 1.44 X10^3/uL (0.83-4.51); Absolute Neutrophil Count 3.6 X10^3/uL (2.0-7.7); Basophil# 0.04 X10^3/uL; Basophil% 0.7 % (0-1); Eosinophil# 0.03 X10^3/uL; Eosinophils% 0.5 % (0-5); Lymphocyte # 1.44 X10^3/ul (0.83-4.51); Lymphocyte % 25.8 % (19-41); Mean Corp Hgb Conc 33.3 g/dL (32-36); Mean Corpuscular Volume 89.9 fL (81-99); Monocyte# 0.51 X10^3/uL; Monocyte% 9.1 % (0-10); NRBC Flagged by Analyzer 0 % (0-5); Neutrophil # 3.56 X10^3/uL (2.7-7.7); Neutrophil % 63.7 % (47-70); Platelet Count 283 K/mm3 (150-450); RBC Distribution Width CV 11.9 % (11.6-14.6); RBC Distribution Width SD 38.5 fl (35.1-43.9); Red Blood Count 4.67 M/mm3 (4.2-5.4); White Blood Count 5.6 K/mm3 (4.4-11.0)
[2024-03-19 15:42] LABS: ALB/GLOB Ratio 1.4 RATIO (0.9-2.4); AST(SGOT) 12 U/L (15-37); Alanine Aminotransfer ALT/SGPT 14 U/L (13-56); Albumin, Serum 4.2 g/dL (3.2-5.0); Alkaline Phosphatase 55 U/L (45-117); Anion Gap 5 (5-15); BUN 7 mg/dL (7-18); BUN/Creat Ratio 10.1 RATIO (10-20); Calcium,Total 9.3 mg/dL (8.5-10.1); Chloride 109 mmol/L (98-107); Creatinine, Serum 0.69 mg/dL (0.55-1.02); EST Glomerular Filtration Rate 113 mL/min (>60); Est Glom Filt Rate - Afr Amer 137 mL/min (>60); Estimated Creatinine Clearance 105.79 ml/min; Glucose 87 mg/dL (74-106); Potassium 3.9 mmol/L (3.5-5.1); Protein, Total 7.2 g/dL (6.4-8.2); Sodium Level 141 mmol/L (136-145)
[2024-03-19 16:18] LABS: Mucous, Urine 0 SEEN /hpf (<or=2+); Red Blood Cells-Urine 0 SEEN /hpf (0-5)
[2024-03-19 16:26] LABS: Color, Urine Yellow (Yellow); Glucose, Dipstick Normal (Normal); Ketone-Dipstick 50 mg/dl (Negative); Leukocyte Esterase-Dipstick 100 /ul (Negative); Nitrite-Dipstick Negative (Negative); Occult Blood-Urine 10 /ul (Negative); Protein-Dipstick 15 mg/dl (Negative); Specific Gravity, Urine 1.025 (1.002-1.030); Urine Bilirubin Dipstick Negative (Negative); Urine Clarity Cloudy (Clear); Urine Urobilinogen Normal (Normal)
[2024-03-19 16:47] LABS: Bacteria 3+ /hpf (None Seen); Internal QC Validated? YES +Cl - CLEAR BKGD; Pregnancy, Urine Negative Negative; Squamous Epithelial Cells - UA 25-50 SEEN /hpf (5-10); White Blood Cells 0-5 SEEN /hpf (0-5)
[2024-03-19 17:00] VITALS: BP 123/83; PULSE 71; RESP 16; TEMP 36.6; O2SAT 99
== END 2024-03-19 17:22 | disposition home or self-care (01) ==
PROVIDERS: Emergency Provider Emergency Medicine; PCP Nurse Practitioner Primary Care; Visit Provider Emergency Medicine
DX: R10.9 Unspecified abdominal pain (principal); R19.7 Diarrhea, unspecified; E80.6 Other disorders of bilirubin metabolism
CPT/HCPCS: 80053; 81001; 81025; 85025; 96360; 96361; 99284; J7030; A4216

== ENCOUNTER 2024-04-19 08:00 | Outpatient (RCR) | payer BC, SELFPAY ==
--- NOTE | 2024-04-19 09:30 | BH.MTP ---
Master Treatment Plan Patient Information Program Physician:: Dr. Carmen Bajwa Primary Therapist:: DENA Boo Psychiatric Diagnoses Psychiatric Diagnoses:: 1. Major depressive disorder, recurrent, severe without psychosis 2. PTSD 3. Panic disorder 4. Cluster B traits 5. History of bulimia nervosa Diagnosis Code(s):: F 33.2 Estimated LOS Estimated LOS (in weeks):: 8 Problem/Goal #1 Problem/Goal #1 Stated Goal:: client will maintain or see a reduction in symptoms AEB client score on the DSM 5 cross-cutting measure and improve client's daily functioning. Objectives Objective #1: Stated Objective: Client will continue to consistently apply healthy coping skills to maintain progress made in IOP tx. Interventions: Through group therapy, client will review warning signs and triggers as well as healthy coping skills learned in IOP tx to successfully maintain gains while transitioning into outpatient therapy. Discharge Criteria: Client will have accomplished this goal when client's score on the DSM-5 cross-cutting measure has maintained or reduced over a 8 week period. Target Date: 06/14/24 Review Date: 05/17/24 Objective #2: Stated Objective: Client will learn and utilize 2-3 maintenance strategies to prevent decompensation from original IOP DSM-5 scores. Interventions: Through group therapy, client will be provided with education on healthy maintenance behaviors, relapse prevention techniques, and healthy coping strategies. Discharge Criteria: Client will have accomplished this goal when can report using at least 2 maintenance skills to prevent decompensation compared to original IOP DSM-5 scores. Target Date: 06/14/24 Review Date: 05/17/24
--- NOTE | 2024-04-19 14:00 | BH.SGPN.GN ---
Behaviors/Verbalizations/Mental Status: []Pt alert and oriented, casually dressed and groomed. Eye contact good. Motor activity appropriate. Speech within normal limits. Affect congruent, mood content, positive. Thoughts linear, logical, no signs of hallucinations or delusions. Client Response/Progress/Benefit: []Pt responded well to session AEB sharing and listening attentively to others. Pt has been consistent with outpatient mental health appointments and medication compliance. Pt reports using positive self-talk, opposite action, gratitude, and boundary setting to help with managing mental health symptoms. Pt participated in group discussion defining affirmations and why they are important. Pt provided insight throughout clinician?s presentation of tips for writing personal affirmations and wrote their own affirmations, including ?I have value and worth?, ?My feelings matter and deserve to take time for myself?, and ?I am setting boundaries to continue to improve my self-worth?. Pt appeared to benefit from increased knowledge of affirmation writing skills and creating their own affirmation statements to remind themselves of outside tx environment. Will continue aftercare tx to promote consistent mental health maintenance and prevent decompensation. Narrative Note: []
--- NOTE | 2024-04-19 16:15 | BH.COMM ---
Communication Note Communication with Client Communication Note: Patient completed IOP and presents today to start relapse prevention group which meets once weekly (1.5 hours) for 8 weeks. Case discussed with Dr. Bajwa with plan to admit with dx of F33.2
--- NOTE | 2024-04-26 14:00 | BH.SGPN.GN ---
Behaviors/Verbalizations/Mental Status: []Pt alert and oriented, casually dressed and groomed. Eye contact good. Motor activity appropriate. Speech within normal limits. Affect congruent, mood euthymic. Thoughts linear, logical, no signs of hallucinations or delusions. Client Response/Progress/Benefit: [] Pt receptive of session, engaged throughout. Pt shared he did attend an outpatient therapy session this week and is using coping skills. These skills included: focusing on what's in her control, personal accountability, deep breathing, and positive self-talk. Receptive of discussion on ?Chapters of my life? poem. Pt contributed to the discussion of the different chapters one may go through and how they connect with current mental health progress. Pt reflected and identified their current chapter as ?4.5? and noted ?I am able to recognize I have trauma and I can identify my warning signs and triggers to avoid the hole and begin finding a new path?. Identified that taking more time to engage in self-care and personal accountability would help with getting to the next chapter. Pt seemed to benefit from support from peers and increasing understanding of ?Chapters of my life?. Will continue IOP aftercare to maintain gains and prevent decompensation. Narrative Note: []
--- NOTE | 2024-05-03 14:00 | BH.SGPN.GN ---
Behaviors/Verbalizations/Mental Status: []Pt alert and oriented, neatly dressed and groomed. Eye contact good. Motor activity appropriate. Speech within normal limits. Affect congruent, mood euthymic and anxious. Thoughts linear, logical, no signs of hallucinations or delusions. Client Response/Progress/Benefit: []Pt receptive of session, engaged throughout. Pt stated she has met with therapist and has consistent sessions booked. Client reported she created an emergency plan with therapist which helped on a day she was struggling. Client stated she has been using opposite action, challenging negative thoughts, and analyzing behaviors as skills lately. Client stated she started drinking sleepy tea before bed which has been helping. Receptive of discussion on personal accountability and its importance in maintaining mental health stability. Engaged in brainstorming strategies for improving ability to hold themselves accountable and participated in the activity. Pt seemed to benefit from support from peers and increasing understanding of personal accountability benefits and strategies. Will continue IOP aftercare group to maintain gains and prevent decompensation.
--- NOTE | 2024-05-10 14:00 | BH.SGPN.GN ---
Behaviors/Verbalizations/Mental Status: []Pt alert and oriented, neatly dressed and groomed. Eye contact good. Motor activity appropriate. Speech within normal limits. Affect congruent, mood euthymic and worried. Thoughts linear, logical, no signs of hallucinations or delusions. Client Response/Progress/Benefit: []Pt responded well to session, Pt reports did not see her therapist this week, but she has been consistent with sessions. Pt shared a recent stressor with the group and received support from peers and weaver apprentice which helped pt give herself credit. Pt also reflected on the coping skills pt has been using such as opposite action, sitting with the uncomfortable, and trying to use affirmations. Pt engaged well during the discussion of the components of self-compassion. Pt connected with the benefits of self-compassion and participated in the activity of reframing a recent setback using self-compassion. Pt receptive to feedback from weaver apprentice on self-compassion not being self-pity but being young. Pt appeared to benefit from practicing self-compassion and connecting with peers. Will continue IOP tx to promote use of healthy coping skills and increase self-confidence. Narrative Note: []
== END 2024-05-13 23:59 ==
LOC: BHOG 08:00
PROVIDERS: PCP Nurse Practitioner Primary Care; Referring Provider Psychiatry & Neurology Psychiatry; Visit Provider Psychiatry & Neurology Psychiatry
DX: F33.2 Major depressive disorder, recurrent severe without psychotic features (principal); F43.10 Post-traumatic stress disorder, unspecified; F41.0 Panic disorder [episodic paroxysmal anxiety]; F50.2 Bulimia nervosa; Z79.899 Other long term (current) drug therapy
CPT/HCPCS: 90853

== ENCOUNTER 2024-05-14 07:17 | Outpatient (RCR) | payer BC, SELFPAY ==
--- NOTE | 2024-05-24 14:00 | BH.SGPN.GN ---
Behaviors/Verbalizations/Mental Status: []Pt alert and oriented, neatly dressed and groomed. Eye contact good. Motor activity appropriate. Speech within normal limits. Affect flat, mood anxious and depressed. Thoughts linear, logical, no signs of hallucinations or delusions. Client Response/Progress/Benefit: []Pt responded well to session, attentive and engaged. Receptive to feedback. Pt reports they have been following up with her outpatient appointments and vitamins to maintain her mental wellness. Pt reports she has been struggling with moving forward in her progress due to ongoing stressors at home and dealing with toxic family members. Siebel Administrator and group offered support and feedback on coping with toxic people and negative thinking which pt appeared to benefit from. Pt shared using skills like self-talk, opposite action, and continuing to show up to therapy. Pt responded well to discussion of problem-solving including the strategies for problem-solving. Pt participated in the group activity and helped peers find a way to overcome the challenge obstacles. Pt was encouraged to take the problem-solving strategies and apply them outside of IOP aftercare. Pt will continue IOP aftercare to promote mood stability, reinforce healthy coping skills, and promote gains. Narrative Note: []
--- NOTE | 2024-05-24 14:18 | BH.TPR ---
Treatment Plan Review Demographics Date of Admission:: 04/19/24 Date of Treatment Plan Review:: 05/24/24 Admitting Diagnoses:: 1. Major depressive disorder, recurrent, severe without psychosis 2. PTSD 3. Panic disorder 4. Cluster B traits 5. History of bulimia nervosa Current Diagnoses:: 1. Major depressive disorder, recurrent, severe without psychosis 2. PTSD 3. Panic disorder 4. Cluster B traits 5. History of bulimia nervosa Patient Status Patient's Response to Treatment:: Pt continues to respond mostly well to treatment AEB pt's consistent attendance, ongoing attentiveness and engagement in group discussions, and continued reporting use of skills outside treatment environment. Pt's symptoms are still 18% lower than they were at IOP admission. Status of Current Problems and Symptoms: Pt is reporting continued improvement in her mental health through an improved ability to manage emotions, challenging negative thoughts, and maintain boundaries and continue to engage in self-care despite ongoing psychosocial stressors. Pt reports mild anxiety symptoms and a recent influx in depressive sx which pt indicates is directly related to the complicated relationship she has with her parents whom she is currently living with. Pt's biggest stressors are connected to toxic interpersonal relationships, finances impeding her ability to move out, and her job. Progress Problem #1: Problem Name:: Pt will maintain or see a reduction in sx Status of Goals:: Obj 1 - complete with ongoing work encouraged. Pt's DSM 5 scores for anger are 67% lower than they were at IOP admission and anxiety is still 60% lower compared to IOP admission. Pt's depression scores have decreased by 33% as well. Obj 2 - complete with ongoing work encouraged. Pt had been reporting using opposite action, focusing on getting at least one self-care task done even on rough days, acceptance, communicating with healthy supports, as well as maintaining her boundaries. Team Recommendations:: Recommended pt continue IOP aftercare group in addition to attending regular outpatient counseling and psychiatry in order to maintain gains.
--- NOTE | 2024-05-31 14:00 | BH.SGPN.GN ---
Behaviors/Verbalizations/Mental Status: []Pt alert and oriented, neatly dressed and groomed. Eye contact good. Motor activity appropriate. Speech within normal limits. Affect congruent, mood depressed. Thoughts linear, logical, no signs of hallucinations or delusions. Client Response/Progress/Benefit: []Pt responded well to session, Pt reports they see their therapist weekly and she is not taking medications. Pt shared a recent stressor with the group and received support from peers and kayak maker which helped pt practice self-compassion. Pt also reflected on the coping skills pt has been using such as small goals, healthy distraction, and self-care. Pt engaged well during the discussion on intrinsic and extrinsic motivation. Pt connected with the benefits of developing strong sources of intrinsic motivation and participated in brainstorming strategies to do so. Pt identified plans to begin daily self-compassion exercises to improve own intrinsic motivation. Pt appeared to benefit from psychoeducation on different sources of motivation and ways to improve motivation. Will continue aftercare tx to maintain gains and prevent decompensation. Narrative Note: []
--- NOTE | 2024-05-31 14:00 | BH.SGPN.GN ---
Behaviors/Verbalizations/Mental Status: []Pt alert and oriented, neatly dressed and groomed. Eye contact good. Motor activity appropriate. Speech within normal limits. Affect congruent, mood depressed. Thoughts linear, logical, no signs of hallucinations or delusions. Client Response/Progress/Benefit: []Pt responded well to session, Pt reports they see their therapist weekly and she is not taking medications. Pt shared a recent stressor with the group and received support from peers and airplane and engine inspector which helped pt practice self-compassion. Pt also reflected on the coping skills pt has been using such as small goals, healthy distraction, and self-care. Pt engaged well during the discussion on intrinsic and extrinsic motivation. Pt connected with the benefits of developing strong sources of intrinsic motivation and participated in brainstorming strategies to do so. Pt identified plans to begin daily self-compassion exercises to improve own intrinsic motivation. Pt appeared to benefit from psychoeducation on different sources of motivation and ways to improve motivation. Will continue aftercare tx to maintain gains and prevent decompensation. Narrative Note: []
--- NOTE | 2024-05-31 14:00 | BH.SGPN.GN ---
Behaviors/Verbalizations/Mental Status: []Pt alert and oriented, neatly dressed and groomed. Eye contact good. Motor activity appropriate. Speech within normal limits. Affect congruent, mood depressed. Thoughts linear, logical, no signs of hallucinations or delusions. Client Response/Progress/Benefit: []Pt responded well to session, Pt reports they see their therapist weekly and she is not taking medications. Pt shared a recent stressor with the group and received support from peers and mainframe architect which helped pt practice self-compassion. Pt also reflected on the coping skills pt has been using such as small goals, healthy distraction, and self-care. Pt engaged well during the discussion on intrinsic and extrinsic motivation. Pt connected with the benefits of developing strong sources of intrinsic motivation and participated in brainstorming strategies to do so. Pt identified plans to begin daily self-compassion exercises to improve own intrinsic motivation. Pt appeared to benefit from psychoeducation on different sources of motivation and ways to improve motivation. Will continue aftercare tx to maintain gains and prevent decompensation. Narrative Note: []
== END 2024-06-13 23:59 ==
LOC: BHOG 07:17
PROVIDERS: PCP Nurse Practitioner Primary Care; Referring Provider Psychiatry & Neurology Psychiatry; Visit Provider Psychiatry & Neurology Psychiatry
DX: F33.2 Major depressive disorder, recurrent severe without psychotic features (principal); F43.10 Post-traumatic stress disorder, unspecified; F41.0 Panic disorder [episodic paroxysmal anxiety]; F50.2 Bulimia nervosa
CPT/HCPCS: 90853

== ENCOUNTER 2024-06-14 07:17 | Outpatient (RCR) | payer BC, SELFPAY ==
--- NOTE | 2024-06-14 14:00 | BH.SGPN.GN ---
Behaviors/Verbalizations/Mental Status: []Pt alert and oriented, neatly dressed and groomed. Eye contact good. Motor activity appropriate. Speech within normal limits. Affect congruent, mood anxious and euthymic. Thoughts linear, logical, no signs of hallucinations or delusions. Client Response/Progress/Benefit: []Pt receptive of session, engaged throughout. Pt shard they did not meet with their outpatient provider since last session. Pt has been taking medications consistently and reports utilizing healthy coping skills outside of aftercare. These skills included: gratitude reflection, opposite action, self-love, and self-compassion. ?Receptive of discussion on sitting with the uncomfortable and emotional urges. Pt contributed to the discussion of distress tolerance and how building distress tolerance can help improve mood stability and resilience. Pt wants to keep building distress tolerance by continuing to reduce people pleasing tendencies. Pt seemed to benefit from support from peers and increasing understanding of distress tolerance. Will continue aftercare to reinforce healthy coping skills and improve daily functioning. Narrative Note: []
--- NOTE | 2024-06-14 14:28 | BH.DS_ITS ---
Discharge Summary Demographics Date of Admission:: 04/19/24 Discharge Date: 06/14/24 Presenting Problems at Admission:: Pt discharged from IOP tx and transitioned to IOP aftercare to maintain gains pt made in IOP and to reinforce healthy coping skills. At admission to IOP aftercare, pt continued to report symptoms of depression, anxiety, and stress within her ability to manage stress within the home, maintain boundaries, cope with daily stressor. Pt also was experiencing st ressors with challenging negative core beliefs, reducing maladaptive safety behaviors, and maintaining self-care. Discharge Diagnoses:: 1. Major depressive disorder, recurrent, severe without psychosis 2. PTSD 3. Panic disorder 4. Cluster B traits 5. History of bulimia nervosa Reason for Discharge:: Pt has accomplished tx goals AEB ability to maintain mood stability and gains made in IOP. Pt will continue with traditional outpatient counseling and medication management. Treatment Progress During Treatment & Response: Pt responded well and made progress in IOP aftercare as evidenced by pt's participation in group discussions and self- report of consistently applying coping skills. Pt?s symptom reduction while in aftercare was 17%. At d/c she self-reported improved mood, energy, and outlook. Additionally, at discharge Pt was reporting consistently practicing self-care, using healthy coping skills, and communicating with supports. Pt still has symptoms and stressors that need resolved and processed, but pt reports overall increased ability to cope. Issues Still to be Addressed:: [place] setting, self-care maintenance, and reinforcing healthy core beliefs, distress tolerance and maintaining mood stability, as well as continued work on managing PTSD sx. Discharge Recommendations/Instructions:: Pt will follow up with her outpatient therapist, Mere, at [facility] for individual counseling. Pt is not currently taking any psychiatric medication. Discharge Handout
== END 2024-06-22 07:04 | disposition home or self-care (01) ==
LOC: BHOG 07:17
PROVIDERS: PCP Nurse Practitioner Primary Care; Referring Provider Psychiatry & Neurology Psychiatry; Visit Provider Psychiatry & Neurology Psychiatry
DX: F33.2 Major depressive disorder, recurrent severe without psychotic features (principal); F43.10 Post-traumatic stress disorder, unspecified; F41.0 Panic disorder [episodic paroxysmal anxiety]; F50.2 Bulimia nervosa
CPT/HCPCS: 90853

== ENCOUNTER → 2025-03-20 | Outpatient (CLI) | payer BC, SELFPAY ==
[2025-03-24 13:07] LABS: Almond 0.18 kU/L (Class 0/I); Apple <0.10 kU/L (Class 0); Banana <0.10 kU/L (Class 0); Barley, Whole Grain 0.11 kU/L (Class 0/I); Beef 0.46 kU/L (Class I); Brazil Nut <0.10 kU/L (Class 0); Carrot 0.12 kU/L (Class 0/I); Cashew <0.10 kU/L (Class 0); Chicken <0.10 kU/L (Class 0); Clam <0.10 kU/L (Class 0); Codfish <0.10 kU/L (Class 0); Corn 0.15 kU/L (Class 0/I); Crab <0.10 kU/L (Class 0); Egg, White <0.10 kU/L (Class 0); Egg, Whole <0.10 kU/L (Class 0); Egg, Yolk <0.10 kU/L (Class 0); Gluten <0.10 kU/L (Class 0); Hazelnut/Filbert <0.10 kU/L (Class 0); Lobster <0.10 kU/L (Class 0); Milk (Cow) 0.73 kU/L (Class II); Orange 0.16 kU/L (Class 0/I); Pea <0.10 kU/L (Class 0); Peanut 0.38 kU/L (Class I); Pecan <0.10 kU/L (Class 0); Pistachio Nut 0.27 kU/L (Class 0/I); Pork <0.10 kU/L (Class 0); SCALLOP <0.10 kU/L (Class 0); SESAME SEED 0.35 kU/L (Class I); Salmon <0.10 kU/L (Class 0); Shrimp <0.10 kU/L (Class 0); Soybean <0.10 kU/L (Class 0); Strawberry 0.15 kU/L (Class 0/I); Tomato 0.33 kU/L (Class I); Tuna <0.10 kU/L (Class 0); Turkey <0.10 kU/L (Class 0); Walnut, (Food) <0.10 kU/L (Class 0); Wheat 0.25 kU/L (Class 0/I); Yeast <0.10 kU/L (Class 0)
== END | disposition home or self-care (01) ==
LOC: LAB 10:52
PROVIDERS: PCP Nurse Practitioner Primary Care; Referring Provider Otolaryngology; Visit Provider Otolaryngology
DX: T78.40XA Allergy, unspecified, initial encounter (principal)
CPT/HCPCS: 36415; 86003

== ENCOUNTER 2025-04-20 21:30 | Emergency (ER) | payer BC, SELFPAY ==
[2025-04-20 21:30] VITALS: BP 114/77; PULSE 78; RESP 15; TEMP 36.1; O2SAT 100; BMI 24.4
--- NOTE | 2025-04-20 22:08 | CT_ITS ---
PROCEDURE: CTA HEAD AND NECK W/ CONTRAST 04/20/2025 REASON FOR EXAM: HEADACHE TECHNIQUE: CTA imaging of the head and neck from the aortic arch to the skull vertex with out contrast and with intravenous contrast. Multiplanar and multisequence images were obtained. CONTRAST: Isovue 370 VOLUME: 100 mL One or more dose reduction techniques were used (e.g., Automated exposure control, adjustment of the mA and/or kV according to patient size, use of iterative reconstruction technique). RADIATION DOSE SUMMARY: CTDlvol: 100 mGy DLP: 1400 mGycm COMPARISON: CT head 01/25/2023. FINDINGS: Noncontrast CT head: No acute intracranial hemorrhage or herniation. The ventricles and extra-axial spaces are normal for patient age. The armstrong-white matter interfaces are maintained. The basal cisterns are patent. The visualized paranasal sinuses and mastoid air cells are well-aerated. CTA neck: Three-vessel aortic arch. The origins of the bilateral vertebral arteries are widely patent. The bilateral cervical carotid arteries are widely patent without narrowing by NASCET criteria. CTA head: The bilateral carotid siphons are widely patent. The bilateral anterior, middle and posterior cerebral arteries are widely patent. No aneurysm or AVM. Major venous structures: Unremarkable. Other findings: No additional findings. CT/CTA Head AND Neck W/ Contrast IMPRESSION: No large vessel occlusion, AVM or aneurysm. No acute intracranial finding on n oncontrast examination. Reading Location: [id number]
--- NOTE | 2025-04-20 22:10 | EX.ED.DYSGE1 ---
HPI History of Present Illness Chief Complaint: Syncope Informant: patient and parent Narrative Narrative: Patient presents with sudden worsening headache 2 hours ago [place]. States he was on a ladder due to symptoms with caught by her father brought down. She took a nap woke up set up a worsening headache. Reports vomiting x 2. She is out in the heat for 7 hours. Also reports right foot pain after mother stepping on her foot. History of migraines this feels different. Mother does report there is family history multiple with cerebral aneurysms requiring coiling. Allergies to Celexa and Zoloft. Denies fevers.Denies any syncopal episodes. Last menstrual period 3 weeks ago. States headache in the back of her head. Prior similar symptoms: No PFSH PFSH Medical History History of bulimia nervosa Panic disorder PTSD (post-traumatic stress disorder) Major depressive disorder, recurrent severe without psychotic features Migraine Home Medications ?Medication ?Instructions ?Recorded ?Last Taken ?Type NK 04/20/25 Unknown History Allergy/AdvReac Type Severity Reaction Status Date / Time citalopram (From Celexa) AdvReac Unknown UNKNOWN Verified 04/20/25 21:30 sertraline (From Zoloft) AdvReac Unknown UNKNOWN Verified 04/20/25 21:30 Family History Other Arthritis Cancer Hypertension Thyroid disorder Surgical History Hx of tonsillectomy Social History Smoking Status: Never smoker alcohol intake: never ROS ROS ED Constitutional Constitutional ED: Denies chills, fever(s) or sweats ENT ENT ED: Denies sore throat Cardiovascular Cardiovascular: Denies chest pain, leg edema, palpitations or racing heartbeat Respiratory/Chest Respiratory/Chest: Denies cough, dyspnea or dyspnea on exertion Gastrointestinal Gastrointestinal: Denies abdominal pain, diarrhea, nausea or vomiting Genitourinary Genitourinary ED: Denies dysuria, hematuria or urinary frequency Musculoskeletal Musculoskeletal: Denies back pain, extremity pain or neck pain Integumentary Denies rash or wounds Neurologic Neurologic: Reports headache(s); Denies paresthesias or weakness EXAM Physical Exam Const Vital Signs: 04/20/25 21:30 04/20/25 21:40 04/20/25 23:30 Temperature 97 F L Temperature Source Temporal Pulse Rate 78 65 Respiratory Rate 15 18 Respiratory Effort Normal Respiratory Pattern Normal Blood Pressure 114/77 122/81 H Blood Pressure Mean 89 94 Pulse Ox 100 100 Oxygen Delivery Method Room Air Room Air 04/21/25 00:44 Temperature 97.8 F Temperature Source Pulse Rate 84 Respiratory Rate 18 Respiratory Effort Respiratory Pattern Blood Pressure 122/71 H Blood Pressure Mean 88 Pulse Ox 99 Oxygen Delivery Method Positive well nourished and well developed General Appearance ED: well developed and NAD HEENT Reports moist mucous membranes normocephalic and atraumatic Eyes General Eye ED: Yes normal appearance of both eyes Neck full ROM Neck Narrative: No meningismus. Chest Wall Chest: Negative for tenderness Resp normal respiratory effort and normal air movement Effort and Inspection: symmetric chest movement; Negative for respiratory distress Cardio regular rate, regular rhythm and no murmurs Peripheral Pulses: pulses 2+ throughout GI normal to inspection, nondistended, normoactive bowel sounds and non-tender Palpation: Negative for guarding or rebound tenderness present Extremity normal to inspection General Extremety ED: Negative for edema or tenderness General Extremity: Negative for edema Neuro oriented x3, CN's II-XII intact bilaterally and no sensory deficits noted Sensorium / Orientation: awake and alert Skin no rashes or lesions noted and no wounds MDM MDM MDM Narrative Medical decision making narrative: Interventions / MDM: Differential diagnosis: Migraine headache Diagnosis considered but do not suspect: Intracranial hemorrhage, cerebral aneurysm however CT negative. My EKG interpretation: N/A Imaging independently reviewed and interpreted by myself: CT angiogram head and neck: No intracranial hemorrhage, no aneurysms. 3 view right foot x-ray: No fracture noted. Also read by radiology. External documents reviewed: N/A Test considered but not ordered:N/A ED course: Patient had a during exertion with lifting this was 2 hours ago. Family history of cerebral aneurysms. I discussed with CDU department. IV is established. Will send her over for CT angiogram head and neck. Right foot x-ray ordered. Labs ordered. 2240: On my wet CT brain review did not appreciate any intracranial hemorrhage. Final reads are pending. At this time we will order for Reglan Benadryl fluids for migraine symptoms. Right foot x-ray interpreted myself shows no fractures. Labs hemoglobin 11.5 white count 5.8 creatinine 0.73. 2254: Final read from radiology negative x-ray of the foot along with negative CT angiogram head and neck. With symptoms starting 2 hours prior to arrival, CT imagings obtained within 6 hours, sensitivities good to rule out any intracranial hemorrhage. Will reevaluate the patient after treatment with migraine cocktail. 0040: Clinically feeling better. Ready to go home. Improving symptoms negative CT scans no indication requiring hospitalization. Discharged outpatient follow-up. All questions were answered. Re-evaluation: stable Disposition discussed with patient/family/significant other: Patient and mother Case discussed with consulting clinician: N/A This note was generated with [employer] dictation software. It may contain incorrect words, spelling, and punctuation that were not noted in checking the note before signing. Lab Data Attestation: I reviewed the patient's lab results. Labs: Laboratory Results - last 24 hr 04/20/25 21:55 WBC 5.8 RBC 3.81 L Hgb 11.5 L Hct 33.9 L MCV 89.0 MCH 30.2 MCHC 33.9 RDW Std Deviation 36.6 RDW Coeff of Maged 11.3 L Plt Count 299 MPV 9.0 Immature Gran % (Auto) 0.200 Neut % (Auto) 49.7 Lymph % (Auto) 37.6 Citrus % (Auto) 10.8 H Eos % (Auto) 1.2 Baso % (Auto) 0.5 Absolute Neuts (auto) 2.9 Absolute Lymphs (auto) 2.19 Nucleated RBC % 0 PT 14.5 INR 1.1 APTT 25.5 Sodium 137 Potassium 4.1 Chloride 107 Carbon Dioxide 19.1 L Anion Gap 11 BUN 12 Creatinine 0.73 Estim Creat Clear Calc 99.15 Est GFR (MDRD) Non-Af 118 BUN/Creatinine Ratio 16.3 Glucose 120 H Calcium 8.9 Radiography Diagnostic Testing: Clinical Impression(s) from Imaging Studies Head/Neck CTA 04/20/25 22:08 IMPRESSION: No large vessel occlusion, AVM or aneurysm. No acute intracranial finding on noncontrast examination. Reading Location: [id number] Foot X-Ray 04/20/25 22:25 IMPRESSION: NO ACUTE FRACTURE OR DISLOCATION. Reading Location: [facility] Discharge Plan Triage Chief Complaint: Syncope Other Complaint: Headache ED Provider: Antonio Orozco Dx/Rx/DC Orders Clinical Impression: Headache, migraine, Contusion of foot, right Instructions: ED Foot Contusion, ED, Migraine (Classical) Prescriptions: No Action NK Primary Care Provider: Keli Lee NP Referrals: Keli Lee NP, [employer] [Primary Care Provider] - 1 Week Activity Restrictions/Additional Instructions: CT head and CT angiogram head and neck negative for bleed or aneurysm. Your foot x-ray negative. Your symptoms improved with migraine cocktail. Use Tylenol 1 g every 6 hours as needed. Follow-up with your doctor. Print Language: German Disposition Disposition: Home, Self Care Discharge Date/Time: 04/21/25 00:50
[2025-04-20 22:18] LABS: Absolute Lymphocyte Count 2.19 X10^3/uL (0.83-4.51); Absolute Neutrophil Count 2.9 X10^3/uL (2.0-7.7); Basophil# 0.03 X10^3/uL; Basophil% 0.5 % (0-1); Eosinophil# 0.07 X10^3/uL; Eosinophils% 1.2 % (0-5); Hematocrit 33.9 % (37-47); Hemoglobin 11.5 g/dL (12.0-15.0); Lymphocyte # 2.19 X10^3/ul (0.83-4.51); Lymphocyte % 37.6 % (19-41); Mean Corp Hgb Conc 33.9 g/dL (32-36); Mean Corpuscular Hgb 30.2 pg (27.0-32.0); Monocyte# 0.63 X10^3/uL; Monocyte% 10.8 % (0-10); NRBC Flagged by Analyzer 0 % (0-5); Neutrophil % 49.7 % (47-70); Platelet Count 299 K/mm3 (150-450); RBC Distribution Width CV 11.3 % (11.6-14.6); RBC Distribution Width SD 36.6 fl (35.1-43.9); Red Blood Count 3.81 M/mm3 (4.2-5.4); White Blood Count 5.8 K/mm3 (4.4-11.0)
--- NOTE | 2025-04-20 22:25 | RAD_ITS ---
PROCEDURE: FOOT MIN 3 VIEWS 04/20/2025 REASON FOR EXAM: INJURY TECHNIQUE: 3 views of the right foot. COMPARISON: None. FINDINGS: Bones: No visible fracture. No suspicious bone lesion. Joints: Normal alignment. Joint spaces preserved. No arthropathic features. Soft tissues: Soft tissues are unremarkable. RAD/Foot min 3 Views IMPRESSION: NO ACUTE FRACTURE OR DISLOCATION. Reading Location: [id number]
[2025-04-20 22:27] LABS: International Normalized Ratio 1.1; Prothrombin Time (Protime)PT. 14.5 SECONDS (11.7-14.9)
[2025-04-20 22:28] LABS: Partial Thromboplast Time 25.5 Seconds (24.1-36.2)
[2025-04-20 22:39] LABS: Anion Gap 11 (5-15); BUN 12 mg/dL (4-19); BUN/Creat Ratio 16.3 RATIO (10-20); Calcium,Total 8.9 mg/dL (7.6-11.0); Carbon Dioxide 19.1 mmol/L (21.0-32.0); Chloride 107 mmol/L (98-108); Creatinine, Serum 0.73 mg/dL (0.70-1.20); EST Glomerular Filtration Rate 118 (>60); Estimated Creatinine Clearance 99.15 ml/min (50-250); Glucose 120 mg/dL (70-99); Potassium 4.1 mmol/L (3.3-5.1); Sodium Level 137 mmol/L (133-145)
--- OUTSIDE RECORDS SUMMARY | 2025-04-20 22:41 | XMS RPT_ITS | CCD ---
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 Interpretation Reference Range Facil ity L3410.9992on 03-25-2025 [facility] Misc. COMMENT Normal . [facility] Comment on above: Order Comment: 87932 2COFFEE TIGER RT Result Comment: Test Ordered: 640851 J506-AfU Coffee Test(s) [id number]-O147-WtN Coffee were developed and had performance characteristics determined by [facility]. These tests have not been cleared or approved by the U.S. Food and Drug Administration. The FDA has determined that such clearance or approval is not necessary. These tests are used for clinical purposes. These should not be regarded as investigational or for research. I321-BnF Coffee <0.10 kU/L Reference Range: Class 0 Levels of Specific IgE Class Description of Class ----- < 0.10 0 Negative 0.10 - 0.31 0/I Equivocal/Low 0.32 - 0.55 I Low 0.56 - 1.40 II Moderate 1.41 - 3.90 III High 3.91 - 19.00 IV Very High 19.01 - 100.00 V Very High >100.00 Very High Performed at: [address] [id number] Specimen Boss: Nikolas White MD, Phone: [phone] Performed at: [address] [id number] Specimen Boss: Quique Swain PhD, Phone: [phone] Performed By: #### L 5530.0499, L5530.0729, L5530.1589, L5530.0169, L5530.1209, L5530.0180, L5530.1319, L5530.0099, L5530.1189, L5530.0879, L5530.1609, L5530.0009, L3410.9994, L5530.0399, L5530.0279, L5530.0089, L5530.1159, L5500.0410, L5530.1719, L5530.1619, L5530.1149, L5530.0039, L5530.1049, L5530.1419, L5530.0589, L5530.0649, L3410.9992, L5530.1509, L5530.0299, L5530.0579 #### [facility] [address] [facility] [place], [address] Allergen, Food Profileon CLAM <0.10 Normal Class 0 [facility] Comment on above: Performed By: #### L 5530.0499, L5530.0729, L5530.1589, L5530.0169, L5530.1209, L5530.0180, L5530.1319, L5530.0099, L5530.1189, L5530.0879, L5530.1609, L5530.0009, L3410.9994, L5530.0399, L5530.0279, L5530.0089, L5530.1159, L5500.0410, L5530.1719, L5530.1619, L5530.1149, L5530.0039, L5530.1049, L5530.1419, L5530.0589, L5530.0649, L3410.9992, L5530.1509, L5530.0299, L5530.0579 #### [facility] [address] [place], [address] CODFISH <0.10 Normal Class 0 [facility] Comment on above: Performed By: #### L 5530.0499, L5530.0729, L5530.1589, L5530.0169, L5530.1209, L5530.0180, L5530.1319, L5530.0099, L5530.1189, L5530.0879, L5530.1609, L5530.0009, L3410.9994, L5530.0399, L5530.0279, L5530.0089, L5530.1159, L5500.0410, L5530.1719, L5530.1619, L5530.1149, L5530.0039, L5530.1049, L5530.1419, L5530.0589, L5530.0649, L3410.9992, L5530.1509, L5530.0299, L5530.0579 #### [facility] [place], [address] COMMENT Comment Normal . [facility] Comment on above: Result Comment: Conor mera of Specific IgE Class Description of Class ----- < 0.10 0 Negative 0.10 - 0.31 0/I Equivocal/Low 0.32 - 0.55 I Low 0.56 - 1.40 II Moderate 1.41 - 3.90 III High 3.91 - 19.00 IV Very High 19.01 - 100.00 V Very High >100.00 Very High Performed By: #### L 5530.0499, L5530.0729, L5530.1589, L5530.0169, L5530.1209, L5530.0180, L5530.1319, L5530.0099, L5530.1189, L5530.0879, L5530.1609, L5530.0009, L3410.9994, L5530.0399, L5530.0279, L5530.0089, L5530.1159, L5500.0410, L5530.1719, L5530.1619, L5530.1149, L5530.0039, L5530.1049, L5530.1419, L5530.0589, L5530.0649, L3410.9992, L5530.1509, L5530.0299, L5530.0579 #### [facility] [address] [facility]. [place], [place], [id number] CORN 0.15 kU/L Abnormal Class 0/I [facility] Comment on above: Performed By: #### L 5530.0499, L5530.0729, L5530.1589, L5530.0169, L5530.1209, L5530.0180, L5530.1319, L5530.0099, L5530.1189, L5530.0879, L5530.1609, L5530.0009, L3410.9994, L5530.0399, L5530.0279, L5530.0089, L5530.1159, L5500.0410, L5530.1719, L5530.1619, L5530.1149, L5530.0039, L5530.1049, L5530.1419, L5530.0589, L5530.0649, L3410.9992, L5530.1509, L5530.0299, L5530.0579 #### [facility] [address] [facility]. [place], [place], [address] EGG, WHITE <0.10 Normal Class 0 [facility] Comment on above: Performed By: #### L 5530.0499, L5530.0729, L5530.1589, L5530.0169, L5530.1209, L5530.0180, L5530.1319, L5530.0099, L5530.1189, L5530.0879, L5530.1609, L5530.0009, L3410.9994, L5530.0399, L5530.0279, L5530.0089, L5530.1159, L5500.0410, L5530.1719, L5530.1619, L5530.1149, L5530.0039, L5530.1049, L5530.1419, L5530.0589, L5530.0649, L3410.9992, L5530.1509, L5530.0299, L5530.0579 #### [facility] [address] [facility]. [place], [place], [id number] MILK (COW) 0.73 kU/L Abnormal Class II [facility] Comment on above: Performed By: #### L 5530.0499, L5530.0729, L5530.1589, L5530.0169, L5530.1209, L5530.0180, L5530.1319, L5530.0099, L5530.1189, L5530.0879, L5530.1609, L5530.0009, L3410.9994, L5530.0399, L5530.0279, L5530.0089, L5530.1159, L5500.0410, L5530.1719, L5530.1619, L5530.1149, L5530.0039, L5530.1049, L5530.1419, L5530.0589, L5530.0649, L3410.9992, L5530.1509, L5530.0299, L5530.0579 #### [facility] [address] [facility]. [place], [place], [id number] PEANUT 0.38 kU/L Abnormal Class I [facility] Comment on above: Performed By: #### L 5530.0499, L5530.0729, L5530.1589, L5530.0169, L5530.1209, L5530.0180, L5530.1319, L5530.0099, L5530.1189, L5530.0879, L5530.1609, L5530.0009, L3410.9994, L5530.0399, L5530.0279, L5530.0089, L5530.1159, L5500.0410, L5530.1719, L5530.1619, L5530.1149, L5530.0039, L5530.1049, L5530.1419, L5530.0589, L5530.0649, L3410.9992, L5530.1509, L5530.0299, L5530.0579 #### [facility] [address] [place], [address] SCALLOP <0.10 Normal Class 0 [facility] Comment on above: Performed By: #### L 5530.0499, L5530.0729, L5530.1589, L5530.0169, L5530.1209, L5530.0180, L5530.1319, L5530.0099, L5530.1189, L5530.0879, L5530.1609, L5530.0009, L3410.9994, L5530.0399, L5530.0279, L5530.0089, L5530.1159, L5500.0410, L5530.1719, L5530.1619, L5530.1149, L5530.0039, L5530.1049, L5530.1419, L5530.0589, L5530.0649, L3410.9992, L5530.1509, L5530.0299, L5530.0579 #### [facility] [address] [place], [address] SESAME SEED 0.35 kU/L Abnormal Class I [facility] Comment on above: Performed By: #### L 5530.0499, L5530.0729, L5530.1589, L5530.0169, L5530.1209, L5530.0180, L5530.1319, L5530.0099, L5530.1189, L5530.0879, L5530.1609, L5530.0009, L3410.9994, L5530.0399, L5530.0279, L5530.0089, L5530.1159, L5500.0410, L5530.1719, L5530.1619, L5530.1149, L5530.0039, L5530.1049, L5530.1419, L5530.0589, L5530.0649, L3410.9992, L5530.1509, L5530.0299, L5530.0579 #### [facility] [address] [place], [place], [id number] SHRIMP <0.10 Normal Class 0 [facility] Comment on above: Performed By: #### L 5530.0499, L5530.0729, L5530.1589, L5530.0169, L5530.1209, L5530.0180, L5530.1319, L5530.0099, L5530.1189, L5530.0879, L5530.1609, L5530.0009, L3410.9994, L5530.0399, L5530.0279, L5530.0089, L5530.1159, L5500.0410, L5530.1719, L5530.1619, L5530.1149, L5530.0039, L5530.1049, L5530.1419, L5530.0589, L5530.0649, L3410.9992, L5530.1509, L5530.0299, L5530.0579 #### [facility] [address] [place], [place], [id number] SOYBEAN <0.10 Normal Class 0 [facility] Comment on above: Performed By: #### L 5530.0499, L5530.0729, L5530.1589, L5530.0169, L5530.1209, L5530.0180, L5530.1319, L5530.0099, L5530.1189, L5530.0879, L5530.1609, L5530.0009, L3410.9994, L5530.0399, L5530.0279, L5530.0089, L5530.1159, L5500.0410, L5530.1719, L5530.1619, L5530.1149, L5530.0039, L5530.1049, L5530.1419, L5530.0589, L5530.0649, L3410.9992, L5530.1509, L5530.0299, L5530.0579 #### [facility] [address] [place], [address] WALNUT,(Food) <0.10 Normal Class 0 [facility] Comment on above: Performed By: #### L 5530.0499, L5530.0729, L5530.1589, L5530.0169, L5530.1209, L5530.0180, L5530.1319, L5530.0099, L5530.1189, L5530.0879, L5530.1609, L5530.0009, L3410.9994, L5530.0399, L5530.0279, L5530.0089, L5530.1159, L5500.0410, L5530.1719, L5530.1619, L5530.1149, L5530.0039, L5530.1049, L5530.1419, L5530.0589, L5530.0649, L3410.9992, L5530.1509, L5530.0299, L5530.0579 #### [facility] [address] [facility]. [place], [place], [address] WHEAT 0.25 kU/L Abnormal Class 0/I [facility] Comment on above: Performed By: #### L 5530.0499, L5530.0729, L5530.1589, L5530.0169, L5530.1209, L5530.0180, L5530.1319, L5530.0099, L5530.1189, L5530.0879, L5530.1609, L5530.0009, L3410.9994, L5530.0399, L5530.0279, L5530.0089, L5530.1159, L5500.0410, L5530.1719, L5530.1619, L5530.1149, L5530.0039, L5530.1049, L5530.1419, L5530.0589, L5530.0649, L3410.9992, L5530.1509, L5530.0299, L5530.0579 #### [facility] [address] [place], [address] Almondon 03-24-2025 ALMOND 0.18 kU/L Abnormal Class 0/I [facility] Comment on above: Performed By: #### L 5530.0499, L5530.0729, L5530.1589, L5530.0169, L5530.1209, L5530.0180, L5530.1319, L5530.0099, L5530.1189, L5530.0879, L5530.1609, L5530.0009, L3410.9994, L5530.0399, L5530.0279, L5530.0089, L5530.1159, L5500.0410, L5530.1719, L5530.1619, L5530.1149, L5530.0039, L5530.1049, L5530.1419, L5530.0589, L5530.0649, L3410.9992, L5530.1509, L5530.0299, L5530.0579 #### [facility] [address] [facility]. [place], [place], [id number] Appleon 03-24-2025 APPLE <0.10 Normal Class 0 [facility] Comment on above: Performed By: #### L 5530.0499, L5530.0729, L5530.1589, L5530.0169, L5530.1209, L5530.0180, L5530.1319, L5530.0099, L5530.1189, L5530.0879, L5530.1609, L5530.0009, L3410.9994, L5530.0399, L5530.0279, L5530.0089, L5530.1159, L5500.0410, L5530.1719, L5530.1619, L5530.1149, L5530.0039, L5530.1049, L5530.1419, L5530.0589, L5530.0649, L3410.9992, L5530.1509, L5530.0299, L5530.0579 #### [facility] [address] [place], [place], [address] Banana 03-24-2025 BANANA <0.10 Normal Class 0 [facility] Comment on above: Performed By: #### L 5530.0499, L5530.0729, L5530.1589, L5530.0169, L5530.1209, L5530.0180, L5530.1319, L5530.0099, L5530.1189, L5530.0879, L5530.1609, L5530.0009, L3410.9994, L5530.0399, L5530.0279, L5530.0089, L5530.1159, L5500.0410, L5530.1719, L5530.1619, L5530.1149, L5530.0039, L5530.1049, L5530.1419, L5530.0589, L5530.0649, L3410.9992, L5530.1509, L5530.0299, L5530.0579 #### [facility] [address] [facility]. [place], [place], [id number] Barley, Whole Grainon 2024 BARLEY,WHOLE GR 0.11 kU/L Abnormal Class 0/I [facility] Comment on above: Performed By: #### L 5530.0499, L5530.0729, L5530.1589, L5530.0169, L5530.1209, L5530.0180, L5530.1319, L5530.0099, L5530.1189, L5530.0879, L5530.1609, L5530.0009, L3410.9994, L5530.0399, L5530.0279, L5530.0089, L5530.1159, L5500.0410, L5530.1719, L5530.1619, L5530.1149, L5530.0039, L5530.1049, L5530.1419, L5530.0589, L5530.0649, L3410.9992, L5530.1509, L5530.0299, L5530.0579 #### [facility] [address] [facility] [place], [place], [id number] Beefon 03-24-2025 BEEF 0.46 kU/L Abnormal Class I [facility] Comment on above: Performed By: #### L 5530.0499, L5530.0729, L5530.1589, L5530.0169, L5530.1209, L5530.0180, L5530.1319, L5530.0099, L5530.1189, L5530.0879, L5530.1609, L5530.0009, L3410.9994, L5530.0399, L5530.0279, L5530.0089, L5530.1159, L5500.0410, L5530.1719, L5530.1619, L5530.1149, L5530.0039, L5530.1049, L5530.1419, L5530.0589, L5530.0649, L3410.9992, L5530.1509, L5530.0299, L5530.0579 #### [facility] [address] [facility] [place], [address] Ovett Nuton 03-24-2025 BRAZIL NUT <0.10 Normal Class 0 [facility] Comment on above: Performed By: #### L 5530.0499, L5530.0729, L5530.1589, L5530.0169, L5530.1209, L5530.0180, L5530.1319, L5530.0099, L5530.1189, L5530.0879, L5530.1609, L5530.0009, L3410.9994, L5530.0399, L5530.0279, L5530.0089, L5530.1159, L5500.0410, L5530.1719, L5530.1619, L5530.1149, L5530.0039, L5530.1049, L5530.1419, L5530.0589, L5530.0649, L3410.9992, L5530.1509, L5530.0299, L5530.0579 #### [facility] [address] [place], [address] Carroton 03-24-2025 CARROT 0.12 kU/L Abnormal Class 0/I [facility] Comment on above: Performed By: #### L 5530.0499, L5530.0729, L5530.1589, L5530.0169, L5530.1209, L5530.0180, L5530.1319, L5530.0099, L5530.1189, L5530.0879, L5530.1609, L5530.0009, L3410.9994, L5530.0399, L5530.0279, L5530.0089, L5530.1159, L5500.0410, L5530.1719, L5530.1619, L5530.1149, L5530.0039, L5530.1049, L5530.1419, L5530.0589, L5530.0649, L3410.9992, L5530.1509, L5530.0299, L5530.0579 #### [facility] [address] [facility]. [place], [place], [address] [facility] 03-24-2025 CASHEW <0.10 Normal Class 0 [facility] Comment on above: Performed By: #### L 5530.0499, L5530.0729, L5530.1589, L5530.0169, L5530.1209, L5530.0180, L5530.1319, L5530.0099, L5530.1189, L5530.0879, L5530.1609, L5530.0009, L3410.9994, L5530.0399, L5530.0279, L5530.0089, L5530.1159, L5500.0410, L5530.1719, L5530.1619, L5530.1149, L5530.0039, L5530.1049, L5530.1419, L5530.0589, L5530.0649, L3410.9992, L5530.1509, L5530.0299, L5530.0579 #### [facility] [address] [facility]. [place], [place], [id number] Chicken 03-24-2025 CHICKEN <0.10 Normal Class 0 [facility] Comment on above: Performed By: #### L 5530.0499, L5530.0729, L5530.1589, L5530.0169, L5530.1209, L5530.0180, L5530.1319, L5530.0099, L5530.1189, L5530.0879, L5530.1609, L5530.0009, L3410.9994, L5530.0399, L5530.0279, L5530.0089, L5530.1159, L5500.0410, L5530.1719, L5530.1619, L5530.1149, L5530.0039, L5530.1049, L5530.1419, L5530.0589, L5530.0649, L3410.9992, L5530.1509, L5530.0299, L5530.0579 #### [facility] [address] [facility]. [place], [place], [id number] Crabon 03-24-2025 CRAB <0.10 Normal Class 0 [facility] Comment on above: Performed By: #### L 5530.0499, L5530.0729, L5530.1589, L5530.0169, L5530.1209, L5530.0180, L5530.1319, L5530.0099, L5530.1189, L5530.0879, L5530.1609, L5530.0009, L3410.9994, L5530.0399, L5530.0279, L5530.0089, L5530.1159, L5500.0410, L5530.1719, L5530.1619, L5530.1149, L5530.0039, L5530.1049, L5530.1419, L5530.0589, L5530.0649, L3410.9992, L5530.1509, L5530.0299, L5530.0579 #### [facility] [address] [facility]. [place], [place], [address] Egg, Wholeon 03-24-2025 EGG, WHOLE <0.10 Normal Class 0 [facility] Comment on above: Performed By: #### L 5530.0499, L5530.0729, L5530.1589, L5530.0169, L5530.1209, L5530.0180, L5530.1319, L5530.0099, L5530.1189, L5530.0879, L5530.1609, L5530.0009, L3410.9994, L5530.0399, L5530.0279, L5530.0089, L5530.1159, L5500.0410, L5530.1719, L5530.1619, L5530.1149, L5530.0039, L5530.1049, L5530.1419, L5530.0589, L5530.0649, L3410.9992, L5530.1509, L5530.0299, L5530.0579 #### [facility] [address] [facility] [place], [address] Egg, Yolkon 03-24-2025 EGG, YOLK <0.10 Normal Class 0 [facility] Comment on above: Performed By: #### L 5530.0499, L5530.0729, L5530.1589, L5530.0169, L5530.1209, L5530.0180, L5530.1319, L5530.0099, L5530.1189, L5530.0879, L5530.1609, L5530.0009, L3410.9994, L5530.0399, L5530.0279, L5530.0089, L5530.1159, L5500.0410, L5530.1719, L5530.1619, L5530.1149, L5530.0039, L5530.1049, L5530.1419, L5530.0589, L5530.0649, L3410.9992, L5530.1509, L5530.0299, L5530.0579 #### [facility] [address] [facility]. [place], [place], [id number] Glutenon 03-24-2025 GLUTEN <0.10 Normal Class 0 [facility] Comment on above: Performed By: #### L 5530.0499, L5530.0729, L5530.1589, L5530.0169, L5530.1209, L5530.0180, L5530.1319, L5530.0099, L5530.1189, L5530.0879, L5530.1609, L5530.0009, L3410.9994, L5530.0399, L5530.0279, L5530.0089, L5530.1159, L5500.0410, L5530.1719, L5530.1619, L5530.1149, L5530.0039, L5530.1049, L5530.1419, L5530.0589, L5530.0649, L3410.9992, L5530.1509, L5530.0299, L5530.0579 #### [facility] [address] [facility] [place], [address] Hazelnut/Filberton Hazelnut/Filber <0.10 Normal Class 0 [facility] Comment on above: Performed By: #### L 5530.0499, L5530.0729, L5530.1589, L5530.0169, L5530.1209, L5530.0180, L5530.1319, L5530.0099, L5530.1189, L5530.0879, L5530.1609, L5530.0009, L3410.9994, L5530.0399, L5530.0279, L5530.0089, L5530.1159, L5500.0410, L5530.1719, L5530.1619, L5530.1149, L5530.0039, L5530.1049, L5530.1419, L5530.0589, L5530.0649, L3410.9992, L5530.1509, L5530.0299, L5530.0579 #### [facility] [address] [facility] [place], [address] L5530.1209on 03-24-2025 PISTACHIO NUT 0.27 kU/L Abnormal Class 0/I [facility] Comment on above: Performed By: #### L 5530.0499, L5530.0729, L5530.1589, L5530.0169, L5530.1209, L5530.0180, L5530.1319, L5530.0099, L5530.1189, L5530.0879, L5530.1609, L5530.0009, L3410.9994, L5530.0399, L5530.0279, L5530.0089, L5530.1159, L5500.0410, L5530.1719, L5530.1619, L5530.1149, L5530.0039, L5530.1049, L5530.1419, L5530.0589, L5530.0649, L3410.9992, L5530.1509, L5530.0299, L5530.0579 #### [facility] [address] [facility] [place], [address] Lobsteron 03-24-2025 LOBSTER <0.10 Normal Class 0 [facility] Comment on above: Performed By: #### L 5530.0499, L5530.0729, L5530.1589, L5530.0169, L5530.1209, L5530.0180, L5530.1319, L5530.0099, L5530.1189, L5530.0879, L5530.1609, L5530.0009, L3410.9994, L5530.0399, L5530.0279, L5530.0089, L5530.1159, L5500.0410, L5530.1719, L5530.1619, L5530.1149, L5530.0039, L5530.1049, L5530.1419, L5530.0589, L5530.0649, L3410.9992, L5530.1509, L5530.0299, L5530.0579 #### [facility] [address] [facility]. [place], [place], [id number] Orangeon 03-24-2025 ORANGE 0.16 kU/L Abnormal Class 0/I [facility] Comment on above: Performed By: #### L 5530.0499, L5530.0729, L5530.1589, L5530.0169, L5530.1209, L5530.0180, L5530.1319, L5530.0099, L5530.1189, L5530.0879, L5530.1609, L5530.0009, L3410.9994, L5530.0399, L5530.0279, L5530.0089, L5530.1159, L5500.0410, L5530.1719, L5530.1619, L5530.1149, L5530.0039, L5530.1049, L5530.1419, L5530.0589, L5530.0649, L3410.9992, L5530.1509, L5530.0299, L5530.0579 #### [facility] [address] [facility] [place], [address] [facility] 03-24-2025 PEA <0.10 Normal Class 0 [facility] Comment on above: Performed By: #### L 5530.0499, L5530.0729, L5530.1589, L5530.0169, L5530.1209, L5530.0180, L5530.1319, L5530.0099, L5530.1189, L5530.0879, L5530.1609, L5530.0009, L3410.9994, L5530.0399, L5530.0279, L5530.0089, L5530.1159, L5500.0410, L5530.1719, L5530.1619, L5530.1149, L5530.0039, L5530.1049, L5530.1419, L5530.0589, L5530.0649, L3410.9992, L5530.1509, L5530.0299, L5530.0579 #### [facility] [address] [facility] [place], [address] Peachon 03-24-2025 PEACH 0.10 kU/L Abnormal Class 0/I [facility] Comment on above: Performed By: #### L 5530.0499, L5530.0729, L5530.1589, L5530.0169, L5530.1209, L5530.0180, L5530.1319, L5530.0099, L5530.1189, L5530.0879, L5530.1609, L5530.0009, L3410.9994, L5530.0399, L5530.0279, L5530.0089, L5530.1159, L5500.0410, L5530.1719, L5530.1619, L5530.1149, L5530.0039, L5530.1049, L5530.1419, L5530.0589, L5530.0649, L3410.9992, L5530.1509, L5530.0299, L5530.0579 #### [facility] [address] [place], [address] Pecano 03-24-2025 PECAN <0.10 Normal Class 0 [facility] Comment on above: Performed By: #### L 5530.0499, L5530.0729, L5530.1589, L5530.0169, L5530.1209, L5530.0180, L5530.1319, L5530.0099, L5530.1189, L5530.0879, L5530.1609, L5530.0009, L3410.9994, L5530.0399, L5530.0279, L5530.0089, L5530.1159, L5500.0410, L5530.1719, L5530.1619, L5530.1149, L5530.0039, L5530.1049, L5530.1419, L5530.0589, L5530.0649, L3410.9992, L5530.1509, L5530.0299, L5530.0579 #### [facility] [address] [facility] [place], [address] Porko 03-24-2025 PORK <0.10 Normal Class 0 [facility] Comment on above: Performed By: #### L 5530.0499, L5530.0729, L5530.1589, L5530.0169, L5530.1209, L5530.0180, L5530.1319, L5530.0099, L5530.1189, L5530.0879, L5530.1609, L5530.0009, L3410.9994, L5530.0399, L5530.0279, L5530.0089, L5530.1159, L5500.0410, L5530.1719, L5530.1619, L5530.1149, L5530.0039, L5530.1049, L5530.1419, L5530.0589, L5530.0649, L3410.9992, L5530.1509, L5530.0299, L5530.0579 #### [facility] [address] [facility] [place], [address] Salmonon 03-24-2025 SALMON <0.10 Normal Class 0 [facility] Comment on above: Performed By: #### L 5530.0499, L5530.0729, L5530.1589, L5530.0169, L5530.1209, L5530.0180, L5530.1319, L5530.0099, L5530.1189, L5530.0879, L5530.1609, L5530.0009, L3410.9994, L5530.0399, L5530.0279, L5530.0089, L5530.1159, L5500.0410, L5530.1719, L5530.1619, L5530.1149, L5530.0039, L5530.1049, L5530.1419, L5530.0589, L5530.0649, L3410.9992, L5530.1509, L5530.0299, L5530.0579 #### [facility] [address] [facility] [place], [address] Strawberry 03-24-2025 STRAWBERRY 0.15 kU/L Abnormal Class 0/I [facility] Comment on above: Performed By: #### L 5530.0499, L5530.0729, L5530.1589, L5530.0169, L5530.1209, L5530.0180, L5530.1319, L5530.0099, L5530.1189, L5530.0879, L5530.1609, L5530.0009, L3410.9994, L5530.0399, L5530.0279, L5530.0089, L5530.1159, L5500.0410, L5530.1719, L5530.1619, L5530.1149, L5530.0039, L5530.1049, L5530.1419, L5530.0589, L5530.0649, L3410.9992, L5530.1509, L5530.0299, L5530.0579 #### [facility] [address] [facility]. [place], [place], [id number] [place]at[place] 03-24-2025 TOMATO 0.33 kU/L Abnormal Class I [facility] Comment on above: Performed By: #### L 5530.0499, L5530.0729, L5530.1589, L5530.0169, L5530.1209, L5530.0180, L5530.1319, L5530.0099, L5530.1189, L5530.0879, L5530.1609, L5530.0009, L3410.9994, L5530.0399, L5530.0279, L5530.0089, L5530.1159, L5500.0410, L5530.1719, L5530.1619, L5530.1149, L5530.0039, L5530.1049, L5530.1419, L5530.0589, L5530.0649, L3410.9992, L5530.1509, L5530.0299, L5530.0579 #### [facility] [address] [facility]. [place], [place], [id number] Tunao 03-24-2025 TUNA <0.10 Normal Class 0 [facility] Comment on above: Performed By: #### L 5530.0499, L5530.0729, L5530.1589, L5530.0169, L5530.1209, L5530.0180, L5530.1319, L5530.0099, L5530.1189, L5530.0879, L5530.1609, L5530.0009, L3410.9994, L5530.0399, L5530.0279, L5530.0089, L5530.1159, L5500.0410, L5530.1719, L5530.1619, L5530.1149, L5530.0039, L5530.1049, L5530.1419, L5530.0589, L5530.0649, L3410.9992, L5530.1509, L5530.0299, L5530.0579 #### [facility] [address] [place], [place], [id number] Turkeyon 03-24-2025 TURKEY <0.10 Normal Class 0 [facility] Comment on above: Result Comment: Perf ormed at: [facility] [id number] Specimen Boss: Nikolas White MD, Phone: [phone] Performed By: #### L 5530.0499, L5530.0729, L5530.1589, L5530.0169, L5530.1209, L5530.0180, L5530.1319, L5530.0099, L5530.1189, L5530.0879, L5530.1609, L5530.0009, L3410.9994, L5530.0399, L5530.0279, L5530.0089, L5530.1159, L5500.0410, L5530.1719, L5530.1619, L5530.1149, L5530.0039, L5530.1049, L5530.1419, L5530.0589, L5530.0649, L3410.9992, L5530.1509, L5530.0299, L5530.0579 #### [facility] [address] [facility] [address]. [place], [place], [id number] Yeaston 03-24-2025 Yeast LM Ql (Urine sed) <0.10 Normal Class 0 [facility] Comment on above: Performed By: #### L 5530.0499, L5530.0729, L5530.1589, L5530.0169, L5530.1209, L5530.0180, L5530.1319, L5530.0099, L5530.1189, L5530.0879, L5530.1609, L5530.0009, L3410.9994, L5530.0399, L5530.0279, L5530.0089, L5530.1159, L5500.0410, L5530.1719, L5530.1619, L5530.1149, L5530.0039, L5530.1049, L5530.1419, L5530.0589, L5530.0649, L3410.9992, L5530.1509, L5530.0299, L5530.0579 #### [facility] [address] [facility]. [place], [place], [id number] L3410.9994on 03-22-2025 [facility] Mis. 2 COMMENT Normal . [facility] Comment on above: Order Comment: [id number] LIYA HAGERER RT Result Comment: Perf ormed at: - [facility] [address] [id number] Specimen Boss: Quique Swain PhD, Phone: [phone] Performed By: #### L 5530.0499, L5530.0729, L5530.1589, L5530.0169, L5530.1209, L5530.0180, L5530.1319, L5530.0099, L5530.1189, L5530.0879, L5530.1609, L5530.0009, L3410.9994, L5530.0399, L5530.0279, L5530.0089, L5530.1159, L5500.0410, L5530.1719, L5530.1619, L5530.1149, L5530.0039, L5530.1049, L5530.1419, L5530.0589, L5530.0649, L3410.9992, L5530.1509, L5530.0299, L5530.0579 #### [facility] [address] [facility] [place], [address] BACTERIAL VAGINOSIS NAATon 0 02-11-2025 Lactobacillus crispatus+gasseri+jim senii + Gardnerella vaginalis + Atopobium vaginae rRNA FELIZ+probe Ql (Vag fld) Not detected Normal Not detected [facility] Comment on above: Order Comment: Speci men Type: SWABOrdering Facility: [facility] Address: [address] [place] [address] Performed By: #### B VAMP, CVTV ####[facility] LABCLIA [id number] [place] [address] [place] RONDA/TRICHOMONAS NAATon 0 02-11-2025 C. glabrata RNA FELIZ+probe Ql (Vag fld) Not detected Normal Not detected [facility] Comment on above: Order Comment: Speci men Type: SWABOrdering Facility: [facility] Address: [address] [place] [address] Performed By: #### B VAMP, CVTV ####[facility] LABIA [id number] [place] [address] [place] Ronda sp DNA FELIZ+probe Ql (Vag fld) Not detected Normal Not detected [facility] Comment on above: Order Comment: Speci men Type: SWABOrdering Facility: [facility] Address: [address] [place] [address] Result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 #### [facility],[address] [place] [address] 72418 Chloride [Moles/Vol] 102 mmol/L Normal 98 - 107 [facility] Comment on above: Performed By: #### 2 [id number] #### [facility],[address] [place] [address] 86568 CO2 [Moles/Vol] 24.5 mmol/L Normal 21.0 - 32.0 [facility] Comment on above: Performed By: #### 2 [id number] #### [facility],[address] [place] [address] 00444 Creatinine [Mass/Vol] 0.8 mg/dL Normal 0.5 - 1.0 [facility] Comment on above: Performed By: #### 2 91203 #### [facility],[address] [place] [address] 49290 GFR/1.73 sq M predicted among non-blacks MDRD (S/P/Bld) [Vol rate/Area] mL/min/{1.73_m2} Normal 60 - 999 [facility] Comment on above: Result Comment: ACCO RDING TO THE NATIONAL KIDNEY DISEASE EDUCATION PROGRAM(NKDE), A NORMAL eGFR IS A VALUE GREATER THAN OR EQUAL TO 60 ML/MIN/1.73 SQ METERS. CHRONIC KIDNEY DISEASE: <60mL/MIN/1.73 SQ METERS KIDNEY FAILURE: <15mL/MIN/1.73 SQ METERS THIS TEST SHOULD ONLY BE USED FOR PATIENTS 18 YEARS OF AGE AND OLDER. Performed By: #### 2 [id number] #### [facility],[address] [place] [address] 06415 GFR/1.73 sq M predicted among non-blacks MDRD (S/P/Bld) [Vol rate/Area] Normal [facility] Comment on above: Result Comment: COMP REHENSIVE METABOLIC PANEL Performed By: #### 2 [id number] #### [address] [address] Globulin (S) [Mass/Vol] 3.6 g/dL Normal 1.5 - 3.8 [facility] Comment on above: Performed By: #### 2 29027 #### [facility],[address] [place] [address] 74768 Glucose [Mass/Vol] 78 mg/dL Normal 74 - 106 [facility] Comment on above: Performed By: #### 2 [id number] #### [address] [address] Potassium [Moles/Vol] 3.9 mmol/L Normal 3.5 - 5.1 [facility] Comment on above: Performed By: #### 2 [id number] #### [address] [address] Protein [Mass/Vol] 7.8 g/dL Normal 6.4 - 8.2 [facility] Comment on above: Performed By: #### 2 06865 #### [address] [address] Sodium [Moles/Vol] 138 mmol/L Normal 136 - 145 [facility] Comment on above: Performed By: #### 2 55488 #### [facility],[address] [place] [address] Urea nitrogen [Mass/Vol] 13 mg/dL Normal 7 - 18 [facility] Comment on above: Performed By: #### 2 36458 #### [facility],[address] [place] [address] CORONAVIRUS (SARS) ANTIGEN T KATHRYNon 10-08-2020 EXTERNAL QC DONE? YES Normal [facility] Comment on above: Performed By: #### 2 [id number] #### [facility],[address] [place] [address] INTERNAL CONTROL PASS Normal [facility] Comment on above: Performed By: #### 2 60520 #### [facility],[address] [place] [address] SARS ANTIGEN Negative Normal NORMAL: NEGATIVE [facility] Comment on above: Performed By: #### 2 37586 #### [facility],[address] [place] [address] SEND TO ? YES Normal [facility] Comment on above: Result Comment: SARS -CoV-2 THIS TEST IS BEING USED UNDER THE FDA EUA PROCEDURE. THIS ASSAY HAS BEEN VALIDATED AT [facility] FOR USE WITH NASAL AND NASOPHARYNGEAL SWAB SPECIMENS. INTERPRETIVE DATA TEST RESULTS SHOULD ALWAYS BE CONSIDERED IN THE CONTEXT OF CLINICAL OBSERVATIONS AND EPIDEMIOLOGICAL DATA IN MAKING FINAL DIAGNOSIS AND PATIENT MANAGEMENT DECISIONS. PATIENT MANAGEMENT SHOULD FOLLOW CURRENT CDC GUIDELINES. THE JOHN SARS ANTIGEN JOSE DOES NOT DIFFERENTIATE BETWEEN SARS-CoV & SARS-CoV-2. A POSITIVE TEST RESULT INDICATES THE PRESENCE OF SARS-CoV-2 NUCLEOCAPSID PROTEIN ANTIGEN, AND THE PATIENT IS INFECTED WITH THE VIRUS AND PRESUMED TO BE CONTAGIOUS. A NEGATIVE TEST RESULT FOR THIS TEST MEANS THAT SARS-CoV-2 NUCLEOCAPSID PROTEIN ANTIGEN WAS NOT PRESENT IN THE SPECIMEN ABOVE THE LIMIT OF DETECTION. HOWEVER, A NEGATIVE RESULT DOES NOT RULE OUT COVID-19 AND SHOULD NOT BE USED THE SOLE BASIS FOR TREATMENT OR PATIENT MANAGEMENT DECISIONS. A NEGATIVE RESULT DOES NOT EXCLUDE THE POSSIBILITY OF COVID-19. NEGATIVE RESULTS, FROM PATIENTS WITH SYMPTOM ONSET BEYOND FIVE DAYS, SHOULD BE TREATED PRESUMPTIVE AND CONFIRMATION WITH A MOLECULAR ASSAY, IF NECESSARY, FOR PATIENT MANAGEMENT, MAY BE PERFORMED. WHEN DIAGNOSTIC TESTING IS NEGATIVE, THE POSSIBLILTY OF A FALSE NEGATIVE RESULT SHOULD BE CONSIDERED IN THE CONTEXT OF A PATIENT'S RECENT EXPOSURES AND THE PRESENCE OF CLINICAL SIGNS AND SYMPTOMS CONSISTENT WITH COVID-19. THE POSSIBILITY OF A FALSE NEGATIVE RESULT SHOULD ESPECIALLY BE CONSIDERED IF THE PATIENT'S RECENT EXPOSURES OR CLINICAL PRESENTATION INDICATE THAT COVID-19 IS LIKELY, AND DIAGNOSTIC TESTS FOR OTHER CAUSES OF ILLNESS (e.g., OTHER RESPIRATORY ILLNESS) ARE NEGATIVE. IF COVID-19 IS STILL SUSPECTED BASED ON EXPOSURE HISTORY TOGETHER WITH OTHER CLINICAL FINDINGS, RE-TESTING SHOULD BE CONSIDERED BY HEALTHCARE PROVIDERS IN CONSULTATION WITH PUBLIC HEALTH AUTHORITIES. Performed By: #### 2 [id number] #### [facility],[address] [place], [place] [id number] CULT STREP REFLEX ONLYon CULT STREP REFLEX ONLY CULT STREP REFLEX ONLY _REFLEX STREP SCREEN CULTURE ONLY_ M I C R O B I O L O G Y R E P O R T FINAL Antimicrobial Susceptibility and Organism Identification Report Specimen Number : [id number] Requested : 10/08/20 Specimen Source : THROAT Collected : 10/08/20 16:30 [facility] of Isolation : EMERGENCY ROOM Received : 10/08/20 16:30 Requesting Physician : RADHA BAEZ ------ Patient/Specimen Tests and Comments Specimen Comments FINAL REPORT: NEGATIVE FOR GROUP A BETA STREP ------ Tech : Source : THROAT ID # : [id number] FINAL Report Date : / / : Collected : 10/08/20 16:30 10/10/20.[employer]. 10/10/20.13[employer] Normal [facility] Comment on above: Performed By: #### 2 [id number] #### [facility],[address] [place] [address]6862 D-DIMER, QUANTITATIVEon 09-15 D-DIMER QUANT 7700 ng/ml High 0 - 230 [facility] Comment on above: Performed By: #### 2 [id number] #### [facility],[address] [place] [address] 51037 D-DIMER, QUANTITATIVE Normal [facility] Comment on above: Result Comment: YAMILET T D-DIMER Performed By: #### 2 [id number] #### [facility],[address] [place] [address]193 INFLUENZA VIRUS RAPID A/James 10-08-2020 INFLUENZA VIRUS RAPID A/B INFLUENZA A NEGATIVE INFLUENZA B NEGATIVE INTERNAL NEG QC PASS INTERNAL POS QC PASS EXTERNAL QC DONE? YES SEND TO IC? YES A NEGATIVE TEST RESULT DOES NOT EXCLUDE INFECTION WITH INFLUENZA A OR B. THEREFORE, THE RESULTS OBTAINED FROM THIS FLU TEST SHOULD BE USED IN CONJUCTION WITH CLINICAL FINDINGS TO MAKE AN ACCURATE DIAGNOSIS. A POSITIVE RESULT DOES NOT RULE OUT CO-INFECTIONS WITH OTHER PATHOGENS OR IDENTIFY ANY SPECIFIC INFLUENZA A VIRUS SUBTYPE.CO-INFECTION WITH INFLUENZA A AND B IS RARE. IT IS RECOMMENDED THAT DUAL POSITIVE RESULTS BE CONFIRMED BY VIRAL CULTURE OR AN FDA-CLEARED INFLUENZA A AND B MOLECULAR ASSAY. INDIVIDUALS WHO HAVE RECEIVED NASALLY ADMINISTERED INFLUENZA A VACCINE MAY TEST POSITIVE IN COMMERCIALLY AVAILABLE INFLUENZA RAPID DIAGNOSTIC TESTS FOR UP TO THREE DAYS. Normal [facility] Comment on above: Performed By: #### 2 [id number] #### [facility],[address] [place], [place] [id number] LACTATEon 10-08-2020 Lactate [Moles/Vol] 1.0 mmol/L Normal 0.4 - 2.0 [facility] Comment on above: Performed By: #### 2 [id number] #### [facility],[address] [place] [address] 32989 RAPID STREPon 10-08-2020 S. pyogenes Ag IA Ql (Unsp spec) Rapid Strep NEG:GRP A STREP INTERNAL QC PASS EXTERNAL QC DONE? YES Normal [facility] Comment on above: Performed By: #### 2 [id number] #### [facility],[address] [place], [place] [id number] Vital Signs Date Time Vital Sign Value Performing Clinician Deni cardenas 02-11-2025 08:46-0400 Body height 160.7 cm Toshia Wilson MD Work Phone: [facility] 02-11-2025 08:46-0400 Body mass index (BMI) [Ratio] 23.73 kg/m2 Toshia Wilson MD Work Phone: [facility] 02-11-2025 08:46-0400 Body weight 61.24 kg Toshia Wilson MD Work Phone: [facility] 02-11-2025 08:46-0400 Diastolic blood pressure 64 mm[Hg] Toshia Wilson MD Work Phone: [facility] 02-11-2025 08:46-0400 Systolic blood pressure 108 mm[Hg] Toshia Wilson MD Work Phone: [facility] 01-30-2025 10:43-0400 Body height 164.1 cm Keli Podlogar BARGEMAN.GEOSPATIAL INTELLIGENCE ANALYST Work Phone: [facility] 01-30-2025 10:43-0400 Body mass index (BMI) [Ratio] 22.61 kg/m2 Keli Podlogar BARGEMAN.GEOSPATIAL INTELLIGENCE ANALYST Work Phone: [facility] 01-30-2025 10:43-0400 Body weight 60.87 kg Keli Podlogar BARGEMAN.GEOSPATIAL INTELLIGENCE ANALYST Work Phone: [facility] 01-30-2025 10:43-0400 Diastolic blood pressure 74 mm[Hg] Keli Podlogar BARGEMAN.GEOSPATIAL INTELLIGENCE ANALYST Work Phone: [facility] 01-30-2025 10:43-0400 Heart rate 88 /min Keli Podlogar BARGEMAN.GEOSPATIAL INTELLIGENCE ANALYST Work Phone: [facility] 01-30-2025 10:43-0400 Respiratory rate 18 /min Keli Podlogar BARGEMAN.GEOSPATIAL INTELLIGENCE ANALYST Work Phone: [facility] 01-30-2025 10:43-0400 SaO2% (BldA) [Mass fraction] 97 % Keli Podlogar BARGEMAN.GEOSPATIAL INTELLIGENCE ANALYST Work Phone: [facility] 01-30-2025 10:43-0400 Systolic blood pressure 106 mm[Hg] Keli Podlogar BARGEMAN.GEOSPATIAL INTELLIGENCE ANALYST Work Phone: [facility] 12-27-2024 15:20-0500 Body mass index (BMI) [Ratio] 23.39 kg/m2 Omi Parker MD Work Phone: [facility] 12-27-2024 15:20-0500 Body temperature 98.8 [degF] Omi Parker MD Work Phone: [facility] 12-27-2024 15:20-0500 Body weight 59.9 kg Omi Parker MD Work Phone: [facility] 12-27-2024 15:20-0500 Diastolic blood pressure 69 mm[Hg] Omi Parker MD Work Phone: [facility] 12-27-2024 15:20-0500 Heart rate 77 /min Omi Parker MD Work Phone: [facility] 12-27-2024 15:20-0500 Respiratory rate 18 /min Omi Parker MD Work Phone: [facility] 12-27-2024 15:20-0500 SaO2% (BldA) [Mass fraction] 99 % Omi Parker MD Work Phone: [facility] 12-27-2024 15:20-0500 Systolic blood pressure 118 mm[Hg] Omi Parker MD Work Phone: [facility] 10-30-2024 14:38-0500 Body mass index (BMI) [Ratio] 22.11 kg/m2 Melody Cleveland BARGEMAN.GEOSPATIAL INTELLIGENCE ANALYST Work Phone: [facility] 10-30-2024 14:38-0500 Body weight 56.61 kg Melody Vijay BARGEMAN.GEOSPATIAL INTELLIGENCE ANALYST Work Phone: [facility] 10-30-2024 14:38-0500 Diastolic blood pressure 60 mm[Hg] Melody Vijay BARGEMAN.GEOSPATIAL INTELLIGENCE ANALYST Work Phone: [facility] 10-30-2024 14:38-0500 Systolic blood pressure 118 mm[Hg] Melody Cleveland BARGEMAN.GEOSPATIAL INTELLIGENCE ANALYST Work Phone: [facility] 09-06-2024 14:20-0400 Body mass index (BMI) [Ratio] 21.89 kg/m2 Melody Vijay BARGEMAN.GEOSPATIAL INTELLIGENCE ANALYST Work Phone: [facility] 09-06-2024 14:20-0400 Body weight 56.06 kg Melody Vijay BARGEMAN.GEOSPATIAL INTELLIGENCE ANALYST Work Phone: [facility] 09-06-2024 14:20-0400 Diastolic blood pressure 60 mm[Hg] Melody Cubacalf BARGEMAN.GEOSPATIAL INTELLIGENCE ANALYST Work Phone: [facility] 09-06-2024 14:20-0400 Systolic blood pressure 122 mm[Hg] Melody Sandovalf BARGEMAN.GEOSPATIAL INTELLIGENCE ANALYST Work Phone: [facility] 07-04-2024 13:52-0400 Body mass index (BMI) [Ratio] 22.22 kg/m2 Omi Parker MD Work Phone: [facility] 07-04-2024 13:52-0400 Body temperature 97.81 [degF] Omi Parker MD Work Phone: [facility] 07-04-2024 13:52-0400 Body weight 56.9 kg Omi Parker MD Work Phone: [facility] 07-04-2024 13:52-0400 Diastolic blood pressure 84 mm[Hg] Omi Parker MD Work Phone: [facility] 07-04-2024 13:52-0400 Heart rate 75 /min Omi Parker MD Work Phone: [facility] 07-04-2024 13:52-0400 Respiratory rate 18 /min Omi Parker MD Work Phone: [facility] 07-04-2024 13:52-0400 SaO2% (BldA) [Mass fraction] 99 % Omi Parker MD Work Phone: [facility] 07-04-2024 13:52-0400 Systolic blood pressure 110 mm[Hg] Omi Parker MD Work Phone: [facility] 06-26-2024 18:22-0400 Body mass index (BMI) [Ratio] 21.87 kg/m2 Yordy Obrien APRN.GEOSPATIAL INTELLIGENCE ANALYST Work Phone: [facility] 06-26-2024 18:22-0400 Body temperature 98.71 [degF] Yordy Obrien APRN.GEOSPATIAL INTELLIGENCE ANALYST Work Phone: [facility] 06-26-2024 18:22-0400 Body weight 56 kg Yordy Pendbuzzbury BARGEMAN.GEOSPATIAL INTELLIGENCE ANALYST Work Phone: [facility] 06-26-2024 18:22-0400 Diastolic blood pressure 72 mm[Hg] [facility] BARGEMAN.GEOSPATIAL INTELLIGENCE ANALYST Work Phone: [facility] 06-26-2024 18:22-0400 Heart rate 77 /min Yordy Pendlebury BARGEMAN.GEOSPATIAL INTELLIGENCE ANALYST Work Phone: [facility] 06-26-2024 18:22-0400 Respiratory rate 18 /min Yordy Pendlebury BARGEMAN.GEOSPATIAL INTELLIGENCE ANALYST Work Phone: [facility] 06-26-2024 18:22-0400 SaO2% (BldA) [Mass fraction] 99 % [facility] B[facility]EM[facility].GEOSPATIAL INTELLIGENCE ANALYST Work Phone: [facility] 06-26-2024 18:22-0400 Systolic blood pressure 113 mm[Hg] Yordy Pendlebury BARGEMAN.GEOSPATIAL INTELLIGENCE ANALYST Work Phone: [facility] 06-26-2024 14:30-0400 Body mass index (BMI) [Ratio] 22.32 kg/m2 Melody Vijay BARGEMAN.GEOSPATIAL INTELLIGENCE ANALYST Work Phone: [facility] 06-26-2024 14:30-0400 Body weight 57.15 kg Melody Vijay BARGEMAN.GEOSPATIAL INTELLIGENCE ANALYST Work Phone: [facility] 06-26-2024 14:30-0400 Diastolic blood pressure 54 mm[Hg] Melody Cleveland BARGEMAN.GEOSPATIAL INTELLIGENCE ANALYST Work Phone: [facility] 06-26-2024 14:30-0400 Systolic blood pressure 100 mm[Hg] Melody Vijay BARGEMAN.GEOSPATIAL INTELLIGENCE ANALYST Work Phone: [facility] 05-10-2024 13:43-0400 Body mass index (BMI) [Ratio] 21.51 kg/m2 Melody Vijay BARGEMAN.GEOSPATIAL INTELLIGENCE ANALYST Work Phone: [facility] 05-10-2024 13:43-0400 Body weight 55.07 kg Melody Cleveland BARGEMAN.GEOSPATIAL INTELLIGENCE ANALYST Work Phone: [facility] 05-10-2024 13:43-0400 Diastolic blood pressure 60 mm[Hg] Melody Vijay BARGEMAN.GEOSPATIAL INTELLIGENCE ANALYST Work Phone: [facility] 05-10-2024 13:43-0400 Systolic blood pressure 98 mm[Hg] Melody Vijay BARGEMAN.GEOSPATIAL INTELLIGENCE ANALYST Work Phone: [facility] 04-23-2024 10:46-0400 Body mass index (BMI) [Ratio] 21.89 kg/m2 Keli Podlogar BARGEMAN.GEOSPATIAL INTELLIGENCE ANALYST Work Phone: [facility] 04-23-2024 10:46-0400 Body temperature 98.01 [degF] Keli Podlogar BARGEMAN.GEOSPATIAL INTELLIGENCE ANALYST Work Phone: [facility] 04-23-2024 10:46-0400 Body weight 56.06 kg Keli Podlogar BARGEMAN.GEOSPATIAL INTELLIGENCE ANALYST Work Phone: [facility] 04-23-2024 10:46-0400 Diastolic blood pressure 68 mm[Hg] Keli Podlogar BARGEMAN.GEOSPATIAL INTELLIGENCE ANALYST Work Phone: [facility] 04-23-2024 10:46-0400 Heart rate 84 /min Keli Podlogar BARGEMAN.GEOSPATIAL INTELLIGENCE ANALYST Work Phone: [facility] 04-23-2024 10:46-0400 Respiratory rate 16 /min Keli Podlogar BARGEMAN.GEOSPATIAL INTELLIGENCE ANALYST Work Phone: [facility] 04-23-2024 10:46-0400 SaO2% (BldA) [Mass fraction] 97 % Keli Podlogar BARGEMAN.GEOSPATIAL INTELLIGENCE ANALYST Work Phone: [facility] 04-23-2024 10:46-0400 Systolic blood pressure 94 mm[Hg] Keli Podlogar BARGEMAN.GEOSPATIAL INTELLIGENCE ANALYST Work Phone: [facility] 04-17-2024 08:18-0400 Body mass index (BMI) [Ratio] 22 kg/m2 Melody Cleveland BARGEMAN.GEOSPATIAL INTELLIGENCE ANALYST Work Phone: [facility] 04-17-2024 08:18-0400 Body weight 56.34 kg Melody Cleveland BARGEMAN.GEOSPATIAL INTELLIGENCE ANALYST Work Phone: [facility] 04-17-2024 08:18-0400 Diastolic blood pressure 62 mm[Hg] Melody Cleveland BARGEMAN.GEOSPATIAL INTELLIGENCE ANALYST Work Phone: [facility] 04-17-2024 08:18-0400 Systolic blood pressure 100 mm[Hg] Melody Vijay BARGEMAN.GEOSPATIAL INTELLIGENCE ANALYST Work Phone: [facility] 04-05-2024 15:37-0400 Body mass index (BMI) [Ratio] 22.28 kg/m2 Melody Cleveland BARGEMAN.GEOSPATIAL INTELLIGENCE ANALYST Work Phone: [facility] 04-05-2024 15:37-0400 Body weight 57.06 kg Melody Cleveland BARGEMAN.GEOSPATIAL INTELLIGENCE ANALYST Work Phone: [facility] 04-05-2024 15:37-0400 Diastolic blood pressure 62 mm[Hg] Melody Cleveland BARGEMAN.GEOSPATIAL INTELLIGENCE ANALYST Work Phone: [facility] 04-05-2024 15:37-0400 Systolic blood pressure 104 mm[Hg] Melody Cleveland BARGEMAN.GEOSPATIAL INTELLIGENCE ANALYST Work Phone: [facility] 03-21-2024 15:57-0400 Body height 160 cm Mere Roddenberry BARGEMAN.GEOSPATIAL INTELLIGENCE ANALYST Work Phone: [facility] 03-21-2024 15:57-0400 Body mass index (BMI) [Ratio] 22.11 kg/m2 Mere Roddenberry BARGEMAN.GEOSPATIAL INTELLIGENCE ANALYST Work Phone: [facility] 03-21-2024 15:57-0400 Body temperature 98.49 [degF] Mere Roddenberry BARGEMAN.GEOSPATIAL INTELLIGENCE ANALYST Work Phone: [facility] 03-21-2024 15:57-0400 Body weight 56.61 kg Mere Roddenberry BARGEMAN.GEOSPATIAL INTELLIGENCE ANALYST Work Phone: [facility] 03-21-2024 15:57-0400 Diastolic blood pressure 64 mm[Hg] Mere Mckinnon BARGEMAN.GEOSPATIAL INTELLIGENCE ANALYST Work Phone: [facility] 03-21-2024 15:57-0400 Heart rate 66 /min Mere Mckinnon BARGEMAN.GEOSPATIAL INTELLIGENCE ANALYST Work Phone: [facility] 03-21-2024 15:57-0400 SaO2% (BldA) [Mass fraction] 98 % Mere Mckinnon BARGEMAN.GEOSPATIAL INTELLIGENCE ANALYST Work Phone: [facility] 03-21-2024 15:57-0400 Systolic blood pressure 112 mm[Hg] Mere Mckinnon BARGEMAN.GEOSPATIAL INTELLIGENCE ANALYST Work Phone: [facility] 03-19-2024 12:28-0400 Body mass index (BMI) [Ratio] 21.65 kg/m2 Yolanda Burk APRN.GEOSPATIAL INTELLIGENCE ANALYST Work Phone: [facility] 03-19-2024 12:28-0400 Body temperature 98.2 [degF] Yolanda Burk APRN.GEOSPATIAL INTELLIGENCE ANALYST Work Phone: [facility] 03-19-2024 12:28-0400 Body weight 55.7 kg Yolanda Burk APRN.GEOSPATIAL INTELLIGENCE ANALYST Work Phone: [facility] 03-19-2024 12:28-0400 Diastolic blood pressure 88 mm[Hg] Yolanda Burk APRN.GEOSPATIAL INTELLIGENCE ANALYST Work Phone: [facility] 03-19-2024 12:28-0400 Heart rate 90 /min Yolanda Burk APRN.GEOSPATIAL INTELLIGENCE ANALYST Work Phone: [facility] 03-19-2024 12:28-0400 Respiratory rate 20 /min Yolanda Burk APRN.GEOSPATIAL INTELLIGENCE ANALYST Work Phone: [facility] 03-19-2024 12:28-0400 SaO2% (BldA) [Mass fraction] 98 % Yolanda Burk APRN.GEOSPATIAL INTELLIGENCE ANALYST Work Phone: [facility] 03-19-2024 12:28-0400 Systolic blood pressure 120 mm[Hg] Yolanda Burk BARGEMAN.GEOSPATIAL INTELLIGENCE ANALYST Work Phone: [facility] 03-02-2024 13:[id number] Body temperature 98.6 [degF] Marla Kirk PA-C Work Phone: [facility] 03-02-2024 13:17040 Body weight 55.79 kg Marla Kirk PA-C Work Phone: [facility] 03-02-2024 13:17-0400 Diastolic blood pressure 76 mm[Hg] Marla Kirk PA-C Work Phone: [facility] 03-02-2024 13:17-0400 Heart rate 81 /min Marla Kirk PA-C Work Phone: [facility] 03-02-2024 13:17-0400 Respiratory rate 16 /min Marla Kirk PA-C Work Phone: [facility] 03-02-2024 13:17-0400 SaO2% (BldA) [Mass fraction] 97 % Marla Kirk PA-C Work Phone: [facility] 03-02-2024 13:17-040 Systolic blood pressure 102 mm[Hg] Marla Kirk PA-C Work Phone: [facility] 01-31-2024 [id number]:[id number] Body height 160.4 cm Keli Podlogar BARGEMAN.GEOSPATIAL INTELLIGENCE ANALYST Work Phone: [facility] 01-31-2024 10:110400 Body weight 56.25 kg Keli Podlogar BARGEMAN.GEOSPATIAL INTELLIGENCE ANALYST Work Phone: [facility] 01-31-2024 10:11-0400 Diastolic blood pressure 66 mm[Hg] Keli Podlogar BARGEMAN.GEOSPATIAL INTELLIGENCE ANALYST Work Phone: [facility] 01-31-2024 10:11-0400 Heart rate 84 /min Keli Podlogar BARGEMAN.GEOSPATIAL INTELLIGENCE ANALYST Work Phone: [facility] 01-31-2024 10:11-0400 Respiratory rate 18 /min Keli Podlogar BARGEMAN.GEOSPATIAL INTELLIGENCE ANALYST Work Phone: [facility] 01-31-2024 10:11-0400 SaO2% (BldA) [Mass fraction] 98 % Keli Podlogar BARGEMAN.GEOSPATIAL INTELLIGENCE ANALYST Work Phone: [facility] 01-31-2024 10:11-0400 Systolic blood pressure 98 mm[Hg] Keli Podlogar BARGEMAN.GEOSPATIAL INTELLIGENCE ANALYST Work Phone: [facility] 01-20-2024 13:05-0500 Body height 160 cm Melody Cleveland BARGEMAN.GEOSPATIAL INTELLIGENCE ANALYST Work Phone: [facility] 01-20-2024 13:05-0500 Body weight 56.52 kg Melody Cleveland BARGEMAN.GEOSPATIAL INTELLIGENCE ANALYST Work Phone: [facility] 01-20-2024 13:05-0500 Diastolic blood pressure 60 mm[Hg] Melody Cleveland BARGEMAN.GEOSPATIAL INTELLIGENCE ANALYST Work Phone: [facility] 01-20-2024 13:05-0500 Systolic blood pressure 90 mm[Hg] Melody Cleveland BARGEMAN.GEOSPATIAL INTELLIGENCE ANALYST Work Phone: [facility] 01-17-2024 09:42-0500 Body weight 56.16 kg Keli Podlogar BARGEMAN.GEOSPATIAL INTELLIGENCE ANALYST Work Phone: [facility] 01-17-2024 09:42-0500 Diastolic blood pressure 78 mm[Hg] Keli Podlogar BARGEMAN.GEOSPATIAL INTELLIGENCE ANALYST Work Phone: [facility] 01-17-2024 09:42-0500 Heart rate 80 /min Keli Podlogar BARGEMAN.GEOSPATIAL INTELLIGENCE ANALYST Work Phone: [facility] 01-17-2024 09:42-0500 Respiratory rate 18 /min Keli Podlogar BARGEMAN.GEOSPATIAL INTELLIGENCE ANALYST Work Phone: [facility] 01-17-2024 09:42-0500 SaO2% (BldA) [Mass fraction] 98 % Keli Podlogar BARGEMAN.GEOSPATIAL INTELLIGENCE ANALYST Work Phone: [facility] 01-17-2024 09:42-0500 Systolic blood pressure 118 mm[Hg] Keli Lee BARGEMAN.GEOSPATIAL INTELLIGENCE ANALYST Work Phone: [facility] 10-13-2023 14:02-0500 Body temperature 98.4 [degF] Graham Naidu BARGEMAN.GEOSPATIAL INTELLIGENCE ANALYST Work Phone: [facility] 10-13-2023 14:02-0500 Body weight 57.42 kg Graham Naidu BARGEMAN.GEOSPATIAL INTELLIGENCE ANALYST Work Phone: [facility] 10-13-2023 14:02-0500 Diastolic blood pressure 74 mm[Hg] Graham Naidu BARGEMAN.GEOSPATIAL INTELLIGENCE ANALYST Work Phone: [facility] 10-13-2023 14:02-0500 Heart rate 70 /min Graham Naidu BARGEMAN.GEOSPATIAL INTELLIGENCE ANALYST Work Phone: [facility] 10-13-2023 14:02-0500 Respiratory rate 21 /min Graham Naidu BARGEMAN.GEOSPATIAL INTELLIGENCE ANALYST Work Phone: [facility] 10-13-2023 14:02-0500 SaO2% (BldA) [Mass fraction] 99 % Graham Naidu BARGEMAN.GEOSPATIAL INTELLIGENCE ANALYST Work Phone: [facility] 10-13-2023 14:02-0500 Systolic blood pressure 110 mm[Hg] Graham Naidu BARGEMAN.GEOSPATIAL INTELLIGENCE ANALYST Work Phone: [facility] 07-15-2023 16:04-0400 Body weight 55.97 kg Melody Cleveland BARGEMAN.GEOSPATIAL INTELLIGENCE ANALYST Work Phone: [facility] 07-15-2023 16:04-0400 Diastolic blood pressure 70 mm[Hg] Melody Vijay BARGEMAN.GEOSPATIAL INTELLIGENCE ANALYST Work Phone: [facility] 07-15-2023 16:04-0400 Systolic blood pressure 112 mm[Hg] Melody Cleveland BARGEMAN.GEOSPATIAL INTELLIGENCE ANALYST Work Phone: [facility] 04-26-2023 16:03-0400 Body temperature 98.78 [degF] JEFFERSON MUNSON DO [facility] 04-26-2023 16:03-0400 Body weight 57.6 kg JEFFERSON REICHFIELD DO [facility] 04-26-2023 16:03-0400 Diastolic Blood Pressure Non-Invasive 82 1 JEFFERSON REICHFIELD DO [facility] 04-26-2023 16:03-0400 Heart rate 86 /min JEFFERSON REICHFIELD DO [facility] 04-26-2023 16:03-0400 Respiratory rate 20 /min JEFFERSON REICHFIELD DO [facility] 04-26-2023 16:03-0400 Systolic Blood Pressure Non-Invasive 127 1 JEFFERSON REICHFIELD DO [facility] 03-29-2023 07:26-0400 Body weight 56.79 kg Melody Vijay BARGEMAN.GEOSPATIAL INTELLIGENCE ANALYST Work Phone: [facility] 03-29-2023 07:26-0400 Diastolic blood pressure 60 mm[Hg] Melody Vijay BARGEMAN.GEOSPATIAL INTELLIGENCE ANALYST Work Phone: [facility] 03-29-2023 07:26-0400 Systolic blood pressure 100 mm[Hg] Melody Vijay BARGEMAN.GEOSPATIAL INTELLIGENCE ANALYST Work Phone: [facility] 02-08-2023 12:29-0400 Body weight 56.25 kg Keli Podlogar BARGEMAN.GEOSPATIAL INTELLIGENCE ANALYST Work Phone: [facility] 02-08-2023 12:29-0400 Diastolic blood pressure 78 mm[Hg] Keli Podlogar BARGEMAN.GEOSPATIAL INTELLIGENCE ANALYST Work Phone: [facility] 02-08-2023 12:29-0400 Heart rate 80 /min Keli Podlogar BARGEMAN.GEOSPATIAL INTELLIGENCE ANALYST Work Phone: [facility] 02-08-2023 12:29-0400 Respiratory rate 18 /min Keli Podlogar BARGEMAN.GEOSPATIAL INTELLIGENCE ANALYST Work Phone: [facility] 02-08-2023 12:29-0400 SaO2% (BldA) [Mass fraction] 98 % Keli Podlogar BARGEMAN.GEOSPATIAL INTELLIGENCE ANALYST Work Phone: [facility] 02-08-2023 12:29-0400 Systolic blood pressure 114 mm[Hg] Keli Podlogar BARGEMAN.GEOSPATIAL INTELLIGENCE ANALYST Work Phone: [facility] 01-25-2023 09:50-0400 Body height 162.56 cm [facility] 01-25-2023 09:50-0400 Body mass index (BMI) [Ratio] 21.4 kg/m2 [facility] 01-25-2023 09:50-0400 Body temperature 97.8 [degF] [facility] 01-25-2023 09:50-0400 Body weight 56.78 kg [facility] 01-25-2023 09:50-0400 Diastolic blood pressure 82 mm[Hg] [facility] 01-25-2023 09:50-0400 Heart rate 73 /min [facility] 01-25-2023 09:50-0400 Respiratory rate 18 /min [facility] 01-25-2023 09:50-0400 SaO2% (BldA) [Mass fraction] 99 % [facility] 01-25-2023 09:50-0400 Systolic blood pressure 113 mm[Hg] [facility] 12-21-2022 10:41-0500 Body weight 56.43 kg Keli Podlogar BARGEMAN.GEOSPATIAL INTELLIGENCE ANALYST Work Phone: [facility] 12-21-2022 10:41-0500 Diastolic blood pressure 82 mm[Hg] Keli Podlogar BARGEMAN.GEOSPATIAL INTELLIGENCE ANALYST Work Phone: [facility] 12-21-2022 10:41-0500 Heart rate 84 /min Keli Podlogar BARGEMAN.GEOSPATIAL INTELLIGENCE ANALYST Work Phone: [facility] 12-21-2022 10:41-0500 Respiratory rate 18 /min Keli Podlogar BARGEMAN.GEOSPATIAL INTELLIGENCE ANALYST Work Phone: [facility] 12-21-2022 10:41-0500 SaO2% (BldA) [Mass fraction] 97 % Keli Podlogar BARGEMAN.GEOSPATIAL INTELLIGENCE ANALYST Work Phone: [facility] 12-21-2022 10:41-0500 Systolic blood pressure 114 mm[Hg] Keli Podlogar BARGEMAN.GEOSPATIAL INTELLIGENCE ANALYST Work Phone: [facility] 08-20-2022 10:38-0400 Body temperature 99.3 [degF] Keli Podlogar BARGEMAN.GEOSPATIAL INTELLIGENCE ANALYST Work Phone: [facility] 08-20-2022 10:38-0400 Body weight 65.95 kg Keli Podlogar BARGEMAN.GEOSPATIAL INTELLIGENCE ANALYST Work Phone: [facility] 08-20-2022 10:38-0400 Diastolic blood pressure 62 mm[Hg] Keli Podlogar BARGEMAN.GEOSPATIAL INTELLIGENCE ANALYST Work Phone: [facility] 08-20-2022 10:38-0400 Heart rate 95 /min Keli Podlogar BARGEMAN.GEOSPATIAL INTELLIGENCE ANALYST Work Phone: [facility] 08-20-2022 10:38-0400 Respiratory rate 18 /min Keli Podlogar BARGEMAN.GEOSPATIAL INTELLIGENCE ANALYST Work Phone: [facility] 08-20-2022 10:38-0400 SaO2% (BldA) [Mass fraction] 97 % Keli Podlogar BARGEMAN.GEOSPATIAL INTELLIGENCE ANALYST Work Phone: [facility] 08-20-2022 10:38-0400 Systolic blood pressure 100 mm[Hg] Keli Podlogar BARGEMAN.GEOSPATIAL INTELLIGENCE ANALYST Work Phone: [facility] 08-14-2022 12:57-0400 Body temperature 98.01 [degF] Vandana Pragaler-Wood BARGEMAN.GEOSPATIAL INTELLIGENCE ANALYST Work Phone: [facility] 08-14-2022 12:57-0400 Body weight 65.86 kg Vandana Pragaler-Wood BARGEMAN.GEOSPATIAL INTELLIGENCE ANALYST Work Phone: [facility] 08-14-2022 12:57-0400 Diastolic blood pressure 82 mm[Hg] Vandana Praisler-Wood BARGEMAN.GEOSPATIAL INTELLIGENCE ANALYST Work Phone: [facility] 08-14-2022 12:57-0400 Heart rate 77 /min Vandana Praisler-Wood BARGEMAN.GEOSPATIAL INTELLIGENCE ANALYST Work Phone: [facility] 08-14-2022 12:57-0400 Respiratory rate 16 /min Vandana Praisler-Wood BARGEMAN.GEOSPATIAL INTELLIGENCE ANALYST Work Phone: [facility] 08-14-2022 12:57-0400 SaO2% (BldA) [Mass fraction] 99 % Vandana Praisler-Wood BARGEMAN.GEOSPATIAL INTELLIGENCE ANALYST Work Phone: [facility] 08-14-2022 12:57-0400 Systolic blood pressure 130 mm[Hg] Vandana Praisler-Wood BARGEMAN.GEOSPATIAL INTELLIGENCE ANALYST Work Phone: [facility] 12-30-2021 14:59-0500 Body temperature 98.42 [degF] DR JUANA TA MD [facility] 12-30-2021 14:59-0500 Diastolic blood pressure 75 mm[Hg] DR JUANA TA MD [facility] 12-30-2021 14:59-0500 Heart rate 91 /min DR JUANA TA MD [facility] 12-30-2021 14:59-0500 Mean blood pressure 90 mm[Hg] DR JUANA TA MD [facility] 12-30-2021 14:59-0500 Respiratory rate 16 /min DR JUANA TA MD [facility] 12-30-2021 14:59-0500 Systolic blood pressure 119 mm[Hg] DR JUANA TA MD [facility] Encounters Encounter Date Encounter Type Care Provider Facility Start: 03-20-2025 End: 03-20-2025 ambulatory Shin Barr Facility:[facility] Start: 02-12-2025 End: 04-14-2025 Follow-up encounter Toshia Wilson MD Work Phone: OB/Gynecology Start: 02-11-2025 End: 02-11-2025 ambulatory SHIN HOGAN Facility:[facility] Start: 02-11-2025 End: 02-11-2025 Patient encounter procedure Toshia Wilson MD Work Phone: OB/Gynecology Comment on above: Encounter for gyneco logical examination (general) (routine) without abnormal findings (Primary Dx); Screening for cervical cancer; Vaginal discharge; Vaginal irritation; Encounter for IUD insertion Start: 02-11-2025 End: 02-11-2025 Patient encounter status Toshia Wilson MD Work Phone: [facility] Start: 01-31-2025 End: 01-31-2025 Follow[facility] encounter [facility] Start: 01-30-2025 End: 01-30-2025 ambulatory KELI PODLOGSANDI Facility:[facility] Start: 01-30-2025 End: 01-30-2025 Patient encounter procedure Keli Lee BARGEMANRebekaGEOSPATIAL INTELLIGENCE ANALYST Work Phone: [facility] Comment on above: Annual physical exam (Primary Dx) Start: 01-04-2025 End: 01-04-2025 ambulatory Keli Podlogar [employer] [facility] Start: 12-27-2024 End: 12-27-2024 Subsequent hospital visit by physician Yanni [facility] Work Phone: Radiology Comment on above: Acute midline low ba ck pain with left-sided sciatica [M54.42] Start: 12-27-2024 End: 12-27-2024 ambulatory SHIN HOGAN Facility:[facility] Start: 12-27-2024 End: 12-27-2024 Office outpatient visit 15 minutes Omi Parker MD Work Phone: [facility] Comment on above: Acute midline low ba ck pain with left-sided sciatica (Primary Dx) Start: 11-01-2024 End: 11-01-2024 ambulatory [facility] Facility:[facility] Start: 11-01-2024 End: 11-01-2024 Nursing evaluation of patient and report Mi Nurse Work Phone: [facility] [place] Comment on above: Encounter for immuni zation (Primary Dx) Start: 10-31-2024 End: 11-01-2024 Telephone encounter Fern Zayas APRN.GEOSPATIAL INTELLIGENCE ANALYST Work Phone: OB/Gynecology Comment on above: Results Start: 10-30-2024 End: 10-30-2024 [facility] Facility:[facility] Start: 10-30-2024 End: 10-30-2024 Patient encounter procedure Melody Cubacalf BARGEMAN.GEOSPATIAL INTELLIGENCE ANALYST Work Phone: OB/Gynecology Comment on above: Vaginal irritation ( Primary Dx); Vaginal discharge Start: 09-07-2024 End: 09-10-2024 Telephone encounter Melody Linares APRN.GEOSPATIAL INTELLIGENCE ANALYST Work Phone: OB/Gynecology Comment on above: Results Start: 09-06-2024 End: 09-06-2024 [facility] Facility:[facility] Start: 09-06-2024 End: 09-06-2024 Patient encounter procedure Melody Vijay BARGEMAN.GEOSPATIAL INTELLIGENCE ANALYST Work Phone: OB/Gynecology Comment on above: Vaginal discharge (P rimary Dx); PMDD (premenstrual dysphoric disorder) Start: 08-30-2024 End: 08-31-2024 Refill Keli Lee APRN.GEOSPATIAL INTELLIGENCE ANALYST Work Phone: [facility] Comment on above: Refill Request Start: 07-04-2024 End: 07-04-2024 [facility] Facility:[facility] Start: 07-04-2024 End: 07-04-2024 Office outpatient visit 15 minutes Omi Parker MD Work Phone: [facility] Comment on above: Sore throat (Primary Dx) Start: 06-29-2024 End: 07-01-2024 Refill Keli Lee BARGEMAN.GEOSPATIAL INTELLIGENCE ANALYST Work Phone: [facility] [place] Comment on above: Refill Request Start: 06-27-2024 Telephone encounter Maranda barrios MD Work Phone: OB/Gynecology Comment on above: New Medication Start: 06-26-2024 End: 06-26-2024 Subsequent hospital visit by physician Xr [facility] Work Phone: Radiology Comment on above: Pain of right hip [M 25.551] Start: 06-26-2024 End: 06-26-2024 ambulatory SHIN HOGAN Facility:[facility] Start: 06-26-2024 End: 06-26-2024 Office outpatient visit 15 minutes Yordy Obrien BARGEMAN.GEOSPATIAL INTELLIGENCE ANALYST Work Phone: [facility] Comment on above: Pain of right hip (P rimary Dx); Trauma Start: 06-26-2024 End: 06-26-2024 ambulatory MELODY VIJAY Facility:[facility] Start: 06-26-2024 End: 06-26-2024 Patient encounter procedure Melody Vijay BARGEMAN.GEOSPATIAL INTELLIGENCE ANALYST Work Phone: OB/Gynecology Comment on above: Vaginal discharge (P rimary Dx) Start: 06-26-2024 Telephone encounter Odalis Gimenez BARGEMAN.GEOSPATIAL INTELLIGENCE ANALYST Work Phone: [facility] Comment on above: Results Start: 06-21-2024 ambulatory Melody Cleveland BARGEMAN.GEOSPATIAL INTELLIGENCE ANALYST Work Phone: OB/Gynecology Start: 06-21-2024 Patient encounter procedure Melody Cleveland BARGEMAN.GEOSPATIAL INTELLIGENCE ANALYST Work Phone: OB/Gynecology Comment on above: Appointment Today Start: 06-14-2024 End: 06-14-2024 ambulatory SHIN HOGAN Facility:[facility] Start: 06-14-2024 End: 06-14-2024 Nursing evaluation of patient and report Mi Nurse Work Phone: [facility] Comment on above: Need for vaccination (Primary Dx) Start: 06-14-2024 End: 06-22-2024 ambulatory [facility] Facility:[facility] Start: 06-12-2024 Telephone encounter Kevin Hogan MD Work Phone: [facility] Comment on above: Patient Question Start: 05-14-2024 End: 06-13-2024 ambulatory [facility] Facility:[facility] Start: 05-10-2024 End: 05-10-2024 [facility] Start: 05-10-2024 End: 05-10-2024 Patient encounter procedure Melody Cubacalf BARGEMAN.GEOSPATIAL INTELLIGENCE ANALYST Work Phone: OB/Gynecology Comment on above: Vaginal discharge (P rimary Dx) Start: 05-09-2024 ambulatory Chelsi Ashton RN NURS E MANAGER [employer]PERATIONS Comment on above: Patient Update Start: 05-09-2024 E-mail encounter fro m caregiver Melody Cubacalf BARGEMAN.GEOSPATIAL INTELLIGENCE ANALYST Work Phone: OB/Gynecology Start: 05-09-2024 Patient encounter procedure Melody Cleveland BARGEMAN.GEOSPATIAL INTELLIGENCE ANALYST Work Phone: OB/Gynecology Comment on above: Appointment Request Start: 04-26-2024 End: 04-26-2024 ambulatory SHIN HOGAN Facility:[facility] Start: 04-26-2024 End: 04-26-2024 Nursing evaluation of patient and report Mi Nurse Work Phone: [facility] Comment on above: Need for vaccination (Primary Dx) Start: 04-24-2024 Telephone encounter Kevin Hogan MD Work Phone: [facility] Comment on above: Orders Start: 04-23-2024 End: 04-23-2024 Patient encounter procedure Keli Lee BARGEMAN.GEOSPATIAL INTELLIGENCE ANALYST Work Phone: [facility] Comment on above: Tongue pain (Primary Dx); Pain of toe of left foot Start: 04-23-2024 End: 04-23-2024 ambulatory SHIN HOGAN Facility:[facility] Start: 04-19-2024 End: 05-13-2024 ambulatory Keli Lee NP Facility:[facility] Start: 04-17-2024 Telephone encounter Mere stallings BARGEMAN.GEOSPATIAL INTELLIGENCE ANALYST Work Phone: Gastroenterology Comment on above: Patient Update Start: 04-17-2024 End: 04-17-2024 ambulatory SHIN HOGAN Facility:[facility] Start: 04-17-2024 End: 04-17-2024 Patient encounter procedure Melody Vijay BARGEMAN.GEOSPATIAL INTELLIGENCE ANALYST Work Phone: OB/Gynecology Comment on above: Vaginal irritation ( Primary Dx) Start: 04-06-2024 Telephone encounter Melody [facility] BARGEMAN.GEOSPATIAL INTELLIGENCE ANALYST Work Phone: OB/Gynecology Comment on above: Results Start: 04-05-2024 End: 04-05-2024 ambulatory SHIN HOGAN Facility:[facility] Start: 04-05-2024 End: 04-05-2024 Patient encounter procedure Melody Cubacalf BARGEMAN.GEOSPATIAL INTELLIGENCE ANALYST Work Phone: OB/Gynecology Comment on above: Screening examinatio n for venereal disease (Primary Dx); Vaginal irritation Start: 03-22-2024 End: 03-22-2024 ambulatory SHIN HOGAN Facility:[facility] Start: 03-22-2024 End: 03-22-2024 Subsequent hospital visit by physician [facility] Work Phone: Radiology Comment on above: Elevated bilirubin [ R17] Start: 03-21-2024 End: 03-21-2024 ambulatory SHIN HOGAN Facility:[facility] Start: 03-21-2024 End: 03-21-[facility] Start: 03-21-2024 End: 03-21-2024 Patient encounter procedure Mere Mckinnon BARGEMAN.GEOSPATIAL INTELLIGENCE ANALYST Work Phone: Gastroenterology Comment on above: Nausea (Primary Dx); Diarrhea, unspecified type; Left lower quadrant abdominal pain; Elevated bilirubin Start: 03-19-2024 End: 03-19-2024 ambulatory SHIN HOGAN Facility:[facility] Start: 03-19-2024 End: 03-19-2024 Patient encounter procedure Yolanda Burk APRN.GEOSPATIAL INTELLIGENCE ANALYST [facility] Phone[facility] Comment on above: Left lower quadrant abdominal pain (Primary Dx) Start: 03-02-2024 End: 03-02-2024 Patient encounter procedure Marla Kirk PA-C Work Phone: [facility] Comment on above: Angular cheilitis (P rimary Dx) Start: 03-02-2024 End: 03-02-2024 ambulatory SHIN HOGAN Facility:[facility] Start: 02-13-2024 Telephone encounter Kevin Hogan MD Work Phone: [facility] [place] Comment on above: Results Start: 02-01-2024 Telephone encounter Kevin Hogan MD Work Phone: [facility] [place] Comment on above: Results Start: 01-31-2024 End: 01-31-2024 Patient encounter procedure Keli Lee APRN.GEOSPATIAL INTELLIGENCE ANALYST Work Phone: [facility] Comment on above: Routine physical exa mination (Primary Dx); ETD (Eustachian tube dysfunction), right; Enlarged thyroid; DREA (generalized anxiety disorder); Chronic nonintractable headache, unspecified headache type Start: 01-31-2024 End: 01-31-2024 Physical examination Keli Lee APRN.GEOSPATIAL INTELLIGENCE ANALYST Work Phone: [facility] Work Phone: Start: 01-23-2024 Telephone encounter Melody pratt BARGEMAN.GEOSPATIAL INTELLIGENCE ANALYST Work Phone: OB/Gynecology Comment on above: Results Start: 01-20-2024 End: 01-20-2024 Patient encounter procedure Melody Linares BARGEMAN.GEOSPATIAL INTELLIGENCE ANALYST Work Phone: OB/Gynecology Comment on above: Encounter for gyneco logical examination (general) (routine) without abnormal findings (Primary Dx); Screening examination for STD (sexually transmitted disease); Vaginal odor Start: 01-20-2024 End: 01-20-2024 Patient encounter status Melody Linares BARGEMAN.GEOSPATIAL INTELLIGENCE ANALYST Work Phone: [facility] Start: 01-17-2024 End: 01-17-2024 Patient encounter procedure Keli Lee BARGEMAN.GEOSPATIAL INTELLIGENCE ANALYST Work Phone: [facility] [place] Comment on above: Cheilitis angular (P rimary Dx) Start: 10-13-2023 End: 10-13-2023 Patient encounter procedure Graham Naidu BARGEMAN.GEOSPATIAL INTELLIGENCE ANALYST Work Phone: [facility] Comment on above: ETD (Eustachian tube dysfunction), right (Primary Dx) Start: 09-28-2023 Telephone encounter Melody [facility] BARGEMAN.GEOSPATIAL INTELLIGENCE ANALYST Work Phone: OB/Gynecology Comment on above: Patient Question (B/ c) Start: 07-16-2023 Telephone encounter Melody [facility] BARGEMAN.GEOSPATIAL INTELLIGENCE ANALYST Work Phone: OB/Gynecology Comment on above: Results Start: 07-15-2023 End: 07-15-2023 Patient encounter procedure Melody Cubacalf BARGEMAN.GEOSPATIAL INTELLIGENCE ANALYST Work Phone: OB/Gynecology Comment on above: Screen for STD (sexu ally transmitted disease) (Primary Dx); Vaginal discharge Start: 06-14-2023 Telephone encounter Keli perez BARGEMAN.GEOSPATIAL INTELLIGENCE ANALYST Work Phone: [facility] Comment on above: No Show Start: 06-10-2023 Refill Melody Sandovalf BARGEMAN.GEOSPATIAL INTELLIGENCE ANALYST Work Phone: OB/Gynecology Comment on above: Refill Request Start: 04-26-2023 End: 04-26-2023 Emergency department patient visit JEFFERSON MUNSON DO [facility] Start: 04-07-2023 Refill Keli Lee BARGEMAN.GEOSPATIAL INTELLIGENCE ANALYST Work Phone: [facility] Comment on above: Refill Request Start: 03-29-2023 End: 03-29-2023 Patient encounter procedure Melodyxin CubaVijay BLOSSOM.GEOSPATIAL INTELLIGENCE ANALYST Work Phone: OB/Gynecology Comment on above: PMDD (premenstrual d ysphoric disorder) (Primary Dx); Breakthrough bleeding on control pills Start: 02-08-2023 End: 02-08-2023 Patient encounter procedure Keli Lee APRN.CASA Work Phone: [facility] Comment on above: Anxiety with depress ion (Primary Dx); Oral aphthous ulcer; Chronic insomnia Start: 01-25-2023 End: 01-25-2023 [facility] Start: 12-21-2022 End: 12-21-2022 Patient encounter procedure Keli Lee APRN.CASA Work Phone: [facility] Comment on above: Routine physical exa mination (Primary Dx); Abnormal serum thyroid stimulating hormone (TSH) level; Anxiety with depression Start: 12-21-2022 End: 12-21-2022 Physical examination Keli Lee APRN.CNP Work Phone: [facility] Start: 08-31-2022 Telephone encounter Keli perez APRN.CNP Work Phone: [facility] Comment on above: Results Start: 08-30-2022 End: 08-30-2022 Subsequent hospital visit by physician [facility] Work Phone: Radiology Comment on above: Enlarged thyroid [E0 4.9] Start: 08-27-2022 Telephone encounter Keli perez APRN.CNP Work Phone: [facility] Comment on above: Results Start: 08-25-2022 Telephone encounter Keli perez APRN.CNP [facility] Comment on above: Opened In Error Start: 08-20-2022 End: 08-20-2022 Patient encounter procedure Keli Lee APRN.CNP Work Phone: [facility] Comment on above: Burning tongue (Prim perla Dx); Enlarged thyroid Start: 08-19-2022 Telephone encounter Graham peacock APRN.GEOSPATIAL INTELLIGENCE ANALYST Work Phone: [facility] Comment on above: Results Start: 08-14-2022 End: 08-14-2022 Patient encounter procedure Vandana Bernadette WANGGEOSPATIAL INTELLIGENCE ANALYST Work Phone: [facility] Comment on above: Sore throat (Primary Dx) Start: 12-30-2021 End: 12-30-2021 Emergency department patient visit DR JUANA TA MD [facility] Start: 12-15-2020 End: 12-15-2020 Subsequent hospital visit by physician Xr [facility] Work Phone: Radiology Comment on above: Acute right-sided lo w back pain with right-sided sciatica [M54.41] Start: 10-08-2020 End: 10-08-2020 Emergency department patient visit KYLE GRECO [facility] Start: 08-08-2018 Patient encounter Jaren Bell Facility:[facility] Start: 09-01-2017 End: 12-27-2022 Patient encounter status Vandana Bernadette CERRATO.GEOSPATIAL INTELLIGENCE ANALYST Work Phone: [facility] Work Phone: Procedures Date Procedure Procedure Detail Performing Clinician Start: 12-27-2024 Radex spine lumbosac ral 2/3 views Omi Parker MD Work Phone: Start: 07-04-2024 STREP A MOLECULAR (POC) Graham Naidu BARGEMAN.GEOSPATIAL INTELLIGENCE ANALYST Work Phone: Start: 06-26-2024 Urnls dip stick/tabl et rgnt auto w/o microscopy Yordy Obrien APRN.GEOSPATIAL INTELLIGENCE ANALYST Work Phone: Start: 06-26-2024 Radex hip unilateral with pelvis 2-3 views Yordy Obrien APRN.GEOSPATIAL INTELLIGENCE ANALYST Work Phone: Start: 04-05-2024 BACTERIAL VAGINOSIS NAAT Melody Linares BARGEMAN.GEOSPATIAL INTELLIGENCE ANALYST Work Phone: Start: 04-05-2024 Iadna chlamydia trachomatis amplified probe tq Melody Vijay BARGEMAN.[facility] Work Phone: Start: 03-22-2024 Us abdominal real ti me w/image limited Mere Mckinnon BARGEMAN.GEOSPATIAL INTELLIGENCE ANALYST Work Phone: Start: 01-25-2023 CT of head without contrast Start: 08-30-2022 Us soft tissue head & neck real time imge docm Keli Podlogsandi BARGEMAN.GEOSPATIAL INTELLIGENCE ANALYST Work Phone: Start: 08-14-2022 STREP A MOLECULAR (POC) Vandana Fleming BARGEMAN.[facility] Work Phone: Start: 12-15-2020 Radex spine lumbosac ral 2/3 views Vandana Fleming BARGEMAN.[facility] Work Phone: Start: 10-08-2020 Microscopic examinat ion of blood, culture KYLE GRECO Comment on above: Performed By: #### 2 [id number] #### [facility],[address] [id number] Entire ear (body structure) DR JUANA TA MD History of tonsillectomy Hx of tonsillect enid Plan of Treatment Date Care Activity Detail Author Start: 06-14-2034 Urine microalbumin profile DTaP,Tdap,Td Vaccine (8 - Td or Tdap) [facility] Start: 02-12-2028 Screening for malignant neoplasm of cervix Cervical Cancer Screening [facility] Start: 02-11-2026 End: 02-11-2026 Patient encounter procedure 02/11/2026 1:40 PM EDT Office Visit OB/Gynecology [address] [place] [address] Toshia Wilson MD [address] [place] [address] Annual OB/Gynecology Comment on above: Annual Start: 01-31-2026 End: 01-31-2026 Patient encounter procedure 01/31/2026 11:00 AM EDT Office Visit [facility] [place] [address] [place] [address] PodKeli york APRN.GEOSPATIAL INTELLIGENCE ANALYST [address] [place] [address] Physical [facility] [place] Comment on above: Physical Start: 12-27-2025 PAP TESTING PAP TESTING [facility] Start: 12-27-2025 Screening for malignant neoplasm of cervix [facility] Start: 10-30-2025 GC (Gonorrhea) Screening (18-24) GC (Gonorrhea) Screening (18-24) [facility] Start: 10-30-2025 Screening for Chlamydia trachomatis Chlamydia Screening (18-) [facility] Start: 09-06-2025 GC (Gonorrhea) Screening (18-24) GC (Gonorrhea) Screening (18-24) [facility] Start: 09-06-2025 Screening for Chlamydia trachomatis Chlamydia Screening (18-24) [facility] Start: 04-05-2025 GC (Gonorrhea) Screening (18-24) GC (Gonorrhea) Screening (18-24) [facility] Start: 04-05-2025 Screening for Chlamydia trachomatis Chlamydia Screening (18-24) [facility] Start: 01-30-2025 End: 05-01-2025 CBC W Auto Differential panel - Blood [facility] Comment on above: Expected: 01/30/2025, Expires: Start: 01-30-2025 End: 05-01-2025 Comprehensive metabolic 2000 panel - Serum or Plasma [facility] Work Phone: Comment on above: Expected: 01/30/2025, Expires: Start: 01-30-2025 End: 01-30-2025 Patient encounter procedure 01/30/2025 10:40 AM EDT Office Visit [facility] [place] [address] [place] [address] PodKeli york APRN.GEOSPATIAL INTELLIGENCE ANALYST [address] [place] [place] [address] Annual Physical [facility] [place] Comment on above: Annual Physical Start: 01-19-2025 GC (Gonorrhea) Screening (18-24) GC (Gonorrhea) Screening (18-24) [facility] Start: 01-19-2025 Screening for Chlamydia trachomatis Chlamydia Screening (18-) [facility] Start: 11-01-2024 End: 11-01-2024 Nursing evaluation of patient and report 11/01/2024 12:30 PM EST Nurse Visit [facility] [address] [place] [address] Nurse, [place] [address] [facility] [place] [address] Hepatitis B #3 [facility] Comment on above: Hepatitis B #3 Start: 10-25-2024 End: 10-25-2024 Nursing evaluation of patient and report 10/25/2024 10:00 AM EST Nurse Visit [facility] [address] [place] [address] Nurse, [place] [address] [facility] [place] [address] Hepatitis B #3 [facility] Comment on above: Hepatitis B #3 Start: 10-21-2024 Hepb vaccine adult 3 dose schedule for im use HEP B VACCINE, 3-DOSE, AGE 20+ YR (ENGERIX-B, RECOMBIVAX HB) Immunization/Injection Routine Need for vaccination Expected: 10/21/2024 (Approximate) [facility] Comment on above: Expected: 10/21/2024 (Approximate) Start: 09-04-2024 End: 09-04-2024 Patient encounter procedure 09/04/2024 10:15 AM EDT Office Visit OB/Gynecology [address] [place] [address] Melody Linares APRN.GEOSPATIAL INTELLIGENCE ANALYST [address] [place] [address] check up OB/Gynecology Comment on above: check up Start: 07-15-2024 CHLAMYDIA SCREENING (18-24) CHLAMYDIA SCREENING (18-24) [facility] Start: 07-15-2024 Covid-19 Vaccine ( season) Covid-19 Vaccine ( season) [facility] Start: 07-15-2024 GC (GONORRHEA) SCREENING (18-24) GC (GONORRHEA) SCREENING (18-24) [facility] Start: 07-15-2024 Influenza vaccination Influenza Vaccine (#1) [facility] Start: 07-15-2024 Screening for Chlamydia trachomatis Chlamydia Screening (18-) [facility] Start: 06-14-2024 End: 06-14-2024 Nursing evaluation of patient and report 06/14/2024 12:30 PM EDT Nurse Visit [facility] [place] [address] [place] [address] Nurse, [place] [address] [place] [address] Hepatitis B #2 and Tdap [facility] Comment on above: Hepatitis B #2 and Tdap Start: 05-25-2024 End: 05-25-2024 Nursing evaluation of patient and report 05/25/2024 1:30 PM EDT Nurse Visit [facility] [address] [place] [address] Nurse, [place] [address] [place] [address] Hepatitis B #2 [facility] Comment on above: Hepatitis B #2 Start: 05-24-2024 Hepb vaccine adult 3 dose schedule for im use HEP B VACCINE, 3-DOSE, AGE 20+ YR (ENGERIX-B, RECOMBIVAX HB) Immunization/Injection Routine Need for vaccination Expected: 05/24/2024 (Approximate) [facility] Comment on above: Expected: 05/24/2024 (Approximate) Start: 05-14-2024 End: 05-14-2024 Patient encounter procedure 05/14/2024 8:00 AM EDT Office Visit OB/Gynecology [address] [place] [address] Melody Linares APRN.GEOSPATIAL INTELLIGENCE ANALYST [address] [place] [address] Allergic reaction to monistat 7. Vagina BAD): OB/Gynecology Comment on above: Allergic reaction to monistat 7. Vagina BAD): Start: 04-26-2024 End: 04-26-2024 Nursing evaluation of patient and report 04/26/2024 3:45 PM EDT Nurse Visit [facility] [place] [address] [place] [address] Nurse, [place] [address] [place], [place] [id number] Hep B repeat series [facility] [place] Comment on above: Hep B repeat series Start: 04-18-2024 End: 04-18-2024 Patient encounter procedure 04/18/2024 2:00 PM EDT Office Visit Gastroenterology [address] [address] Mere Mckinnon APRN.GEOSPATIAL INTELLIGENCE ANALYST [address] [place] [address] Hypoalbuminemia/ patient Gastroenterology Comment on above: Hypoalbuminemia/ patient Start: 03-21-2024 End: 06-20-2024 ALPHA 1 ANTITRYP PHEN/GENOTYPE [facility] Work Phone: Comment on above: Expected: 03/21/2024, Expires: Start: 03-21-2024 End: 06-20-2024 HFE gene targeted mutation analysis in Blood or Tissue by Molecular genetics method [facility] Comment on above: Expected: 03/21/2024, Expires: Start: 02-13-2024 Urine microalbumin profile [facility] Start: 01-20-2024 End: 04-20-2024 Hepatitis B virus surface Ag [Presence] in Serum [facility] Work Phone: Comment on above: Expected: 01/20/2024, Expires: Start: 01-20-2024 End: 04-20-2024 Hepatitis C virus Ab [Presence] in Serum [facility] Work Phone: Comment on above: Expected: 01/20/2024, Expires: 4 Start: 01-20-2024 End: 04-20-2024 HIV 1+2 Ab [Presence] in Serum or Plasma by Immunoassay [facility] Work Phone: Comment on above: Expected: 01/20/2024, Expires: 4 Start: 01-20-2024 End: 04-20-2024 SYPHILIS TOTAL W/REFLEX [facility] Work Phone: Comment on above: Expected: 01/20/2024, Expires: 4 Start: 12-27-2023 CHLAMYDIA SCREENING (18-24) CHLAMYDIA SCREENING (18-24) [facility] Start: 12-27-2023 GC (GONORRHEA) SCREENING (18-24) GC (GONORRHEA) SCREENING (1824) [facility] Start: 07-15-2023 End: 09-14-2023 Hepatitis B virus surface Ag [Presence] in Serum [facility] Work Phone: Comment on above: Expected: 07/15/2023, Expires: 3 Start: 07-15-2023 End: 09-14-2023 Hepatitis C virus RNA [Units/volume] (viral load) in Serum or Plasma by FELIZ with probe detection [facility] Work Phone: Comment on above: Expected: 07/15/2023, Expires: 3 Start: 07-15-2023 End: 09-14-2023 HIV 1+2 Ab [Presence] in Serum or Plasma by Immunoassay [facility] Work Phone: Comment on above: Expected: 07/15/2023, Expires: 3 Start: 07-15-2023 Influenza vaccination [facility] Start: 07-15-2023 End: 09-14-2023 SYPHILIS TOTAL W/REFLEX [facility] Work Phone: Comment on above: Expected: 07/15/2023, Expires: 3 Start: 12-21-2022 End: 02-20-2023 CBC panel - Blood by Automated count [facility] Work Phone: Comment on above: Expected: 12/21/2022, Expires: 3 Start: 12-21-2022 End: 02-20-2023 Comprehensive metabolic 2000 panel - Serum or Plasma [facility] Work Phone: Comment on above: Expected: 12/21/2022, Expires: 3 Start: 12-21-2022 End: 02-20-2023 Thyrotropin [Units/volume] in Serum or Plasma [facility] Work Phone: Comment on above: Expected: 12/21/2022, Expires: 3 Start: 12-21-2022 End: 02-20-2023 Thyroxine (T4) free [Mass/volume] in Serum or Plasma [facility] Work Phone: Comment on above: Expected: 12/21/2022, Expires: 3 Start: 08-27-2022 End: 10-27-2022 Thyrotropin [Units/volume] in Serum or Plasma TSH BLD Lab Routine Abnormal serum thyroid stimulating hormone (TSH) level Expected: 08/27/2022, Expires: 10/27/2022 [facility] Work Phone: Comment on above: Expected: 08/27/2022, Expires: 2 Start: 08-27-2022 End: 10-27-2022 Thyroxine (T4) free [Mass/volume] in Serum or Plasma T4 FREE/FREE THYROX Lab Routine Abnormal serum thyroid stimulating hormone (TSH) level Expected: 08/27/2022, Expires: 10/27/2022 [facility] Work Phone: Comment on above: Expected: 08/27/2022, Expires: 2 Start: 08-27-2022 End: 10-27-2022 Triiodothyronine (T3) [Mass/volume] in Serum or Plasma T3 BLD Lab Routine Abnormal serum thyroid stimulating hormone (TSH) level Expected: 08/27/2022, Expires: 10/27/2022 [facility] Work Phone: Comment on above: Expected: 08/27/2022, Expires: 2 Start: 08-20-2022 End: 10-20-2022 Cobalamin (Vitamin B12) [Mass/volume] in Serum or Plasma [facility] Work Phone: Comment on above: Expected: 08/20/2022, Expires: 2 Start: 08-20-2022 End: 10-20-2022 Folate [Mass/volume] in Serum or Plasma [facility] Work Phone: Comment on above: Expected: 08/20/2022, Expires: 2 Start: 08-20-2022 End: 10-20-2022 Iron and Iron binding capacity panel - Serum or Plasma [facility] Work Phone: Comment on above: Expected: 08/20/2022, Expires: 2 Start: 08-20-2022 End: 10-20-2022 Pyridoxine [Mass/volume] in Serum or Plasma [facility] Work Phone: Comment on above: Expected: 08/20/2022, Expires: 2 Start: 08-20-2022 End: 10-20-2022 THYROID PEROXIDASE ANTIBODY BLOOD [facility] Work Phone: Comment on above: Expected: 08/20/2022, Expires: 2 Start: 08-20-2022 End: 10-20-2022 Thyrotropin [Units/volume] in Serum or Plasma [facility] Work Phone: Comment on above: Expected: 08/20/2022, Expires: 2 Start: 08-20-2022 End: 10-20-2022 Thyroxine (T4) free [Mass/volume] in Serum or Plasma [facility] Work Phone: Comment on above: Expected: 08/20/2022, Expires: 2 Start: 08-20-2022 End: 10-20-2022 Zinc [Mass/volume] in Serum or Plasma [facility] Work Phone: Comment on above: Expected: 08/20/2022, Expires: 2 Start: 08-14-2022 End: 10-14-2022 Fungus identified in Unspecified specimen by Culture FUNGAL CULTURE Microbiology Routine Sore throat Expected: 08/14/2022, Expires: 10/14/2022 [facility] Work Phone: Comment on above: Expected: 08/14/2022, Expires: 2 Start: 08-14-2022 End: 08-28-2022 Influenza virus A and B RNA and SARS-CoV-2 (COVID-19) N gene panel - Respiratory specimen by FELIZ with probe detection COVID WITH FLUA+B, ROUTINE Microbiology Routine Sore throat Expected: 08/14/2022, Expires: 08/28/2022 [facility] Work Phone: Comment on above: Expected: 08/14/2022, Expires: 2 Start: 07-15-2022 Influenza vaccination INFLUENZA (#1) [facility] Start: 02-19-2022 CHLAMYDIA SCREENING (18-24) CHLAMYDIA SCREENING (18-24) [facility] Start: 02-19-2022 GC (GONORRHEA) SCREENING (18-24) GC (GONORRHEA) SCREENING (18-24) [facility] Start: 02-15-2022 COVID-19 VACCINE (4 - Booster for Moderna series) COVID-19 VACCINE (4 - Booster for Moderna series) [facility] Start: 02-15-2022 COVID-19 VACCINE (4 - Moderna series) COVID-19 VACCINE (4 - Moderna series) [facility] Start: 2015 PEDS TO ADULT TRANSITION ANNUAL ASSESSMENT PEDS TO ADULT TRANSITION ANNUAL ASSESSMENT [facility] Start: 2013 PEDS TO ADULT TRANSITION INITIAL DISCUSSION PEDS TO ADULT TRANSITION INITIAL DISCUSSION [facility] BACTERIAL VAGINOSIS NAAT BACTERI AL VAGINOSIS NAAT Lab Routine Vaginal discharge 07/15/2023 4:51 PM EDT [facility] Work Phone: BACTERIAL VAGINOSIS NAAT BACTERI AL VAGINOSIS NAAT Lab Routine Vaginal odor 01/20/2024 1:46 PM EST [facility] Work Phone: BACTERIAL VAGINOSIS NAAT BACTERI AL VAGINOSIS NAAT Lab Routine Vaginal irritation 04/17/2024 8:31 AM EDT [facility] BACTERIAL VAGINOSIS NAAT BACTERI AL VAGINOSIS NAAT Lab Routine Vaginal discharge 05/10/2024 2:06 PM EDT [facility] BACTERIAL VAGINOSIS NAAT BACTERI AL VAGINOSIS NAAT Lab Routine Vaginal discharge 06/26/2024 3:04 PM T [facility] Work Phone: BACTERIAL VAGINOSIS NAAT BACTERI AL VAGINOSIS NAAT Lab Routine Vaginal discharge 09/06/2024 2:52 PM EDT [facility] BACTERIAL VAGINOSIS NAAT BACTERI AL VAGINOSIS NAAT Lab Routine Vaginal irritation 10/30/2024 3:35 PM EST [facility] BACTERIAL VAGINOSIS NAAT BACTERI AL VAGINOSIS NAAT Lab Routine Vaginal discharge 02/11/2025 9:20 AM [facility] RONDA/TRICHOMONAS NAAT RONDA /TRICHOMONAS NAAT Lab Routine Vaginal discharge 07/15/2023 4:51 PM [facility] Work Phone: RONDA/TRICHOMONAS NAAT RONDA /TRICHOMONAS NAAT Lab Routine Vaginal odor 01/20/2024 1:46 PM [facility] Work Phone: RONDA/TRICHOMONAS NAAT RONDA /TRICHOMONAS NAAT Lab Routine Vaginal irritation 04/17/2024 8:31 AM [facility] Work Phone: RONDA/TRICHOMONAS NAAT RONDA /TRICHOMONAS NAAT Lab Routine Vaginal discharge 05/10/2024 2:06 PM [facility] Work Phone: RONDA/TRICHOMONAS NAAT RONDA /TRICHOMONAS NAAT Lab Routine Vaginal discharge 06/26/2024 3:04 PM T [facility] RONDA/TRICHOMONAS NAAT RONDA /TRICHOMONAS NAAT Lab Routine Vaginal discharge 09/06/2024 2:52 PM [facility] Work Phone: RONDA/TRICHOMONAS NAAT RONDA /TRICHOMONAS NAAT Lab Routine Vaginal irritation 10/30/2024 3:35 PM [facility] Work Phone: RONDA/TRICHOMONAS NAAT RONDA /TRICHOMONAS NAAT Lab Routine Vaginal discharge 02/11/2025 9:20 AM [facility] Chlamydia trachomatis+Neisseria gonorrhoeae DNA [Presence] in Unspecified specimen by FELIZ with probe detection GONORRHEA/CHLAMYDIA NAAT Lab Routine Screen for STD (sexually transmitted disease) 07/15/2023 4:51 PM EDT [facility] Work Phone: Chlamydia trachomatis+Neisseria gonorrhoeae DNA [Presence] in Unspecified specimen by FELIZ with probe detection GONORRHEA/CHLAMYDIA NAAT Lab Routine Screening examination for STD (sexually transmitted disease) 01/20/2024 1:46 PM EST [facility] Work Phone: Chlamydia trachomatis+Neisseria gonorrhoeae DNA [Presence] in Unspecified specimen by FELIZ with probe detection GONORRHEA/CHLAMYDIA NAAT Lab Routine Vaginal discharge 09/06/2024 2:52 PM EDT [facility] Chlamydia trachomatis+Neisseria gonorrhoeae DNA [Presence] in Unspecified specimen by FELIZ with probe detection GONORRHEA/CHLAMYDIA NAAT Lab Routine Vaginal irritation Vaginal discharge 10/30/2024 3:35 PM EST [facility] Hepb vaccine adult 3 dose schedule for im use HEP B VACCINE, 3-DOSE, AGE 20+ YR (ENGERIX-B, RECOMBIVAX HB) Immunization/Injection Routine Need for vaccination Ordered: 04/24/2024 [facility] Work Phone: Comment on above: Ordered: 04/24/2024 Insertion intrauteri ne device iud INSERT INTRAUTERINE DEVICE Procedures Routine Encounter for IUD insertion Ordered: 02/11/2025 [facility] Work Phone: Comment on above: Ordered: 02/11/2025 NEXPLANON INSERTION NEXPLANON IN SERTION Procedures Routine Encounter for contraceptive management, unspecified type Nexplanon insertion Ordered: 09/29/2023 [facility] Work Phone: Comment on above: Ordered: 09/29/2023 PAP TEST PAP TEST Lab Umer montiel Encounter for gynecological examination (general) (routine) without abnormal findings Screening for cervical cancer 02/11/2025 9:20 AM EDT [facility] Patient Education ED, Migraine (Classical) [facility] Work Phone: Patient referral [facility] Work Phone: SARS-CoV-2 (COVID-19 ) RNA [Presence] in Respiratory specimen by FELIZ with probe detection COVID NAAT, UPPER RESPIRATORY, ROUTINE Microbiology Routine Sore throat 07/04/2024 2:26 PM EDT [facility] Work Phone: Tdap vaccine 7 yrs/> im TDAP VAC CINE, AGE 7+ YR (ADACEL, BOOSTRIX) Immunization/Injection Routine Encounter for immunization Ordered: 06/12/2024 [facility] Work Phone: Comment on above: Ordered: 06/12/2024 UA DIP, URINE (POC) UA DIP, URIN E (POC) Lab Routine Trauma Ordered: 06/26/2024 [facility] Work Phone: Comment on above: Ordered: 06/26/2024 US Abdomen RUQ US ABD RIGHT UPP ER QUADRANT Radiology Routine Elevated bilirubin 03/22/2024 3:17 PM EDT [facility] Work Phone: End: 09-19-2023 Us soft tissue head & neck real time imge docm US THYROID/PARATHYROID Radiology Routine Enlarged thyroid 1 Occurrences starting 08/20/2022 until 09/19/2023 [facility] Work Phone: Comment on above: 1 Occurrences starting 08/20/2022 until 09/19/2023 End: 03-01-2025 US Thyroid gland US THYROID/PARATHYROID Radiology Routine Enlarged thyroid 1 Occurrences starting 01/31/2024 until 03/01/2025 [facility] Work Phone: Comment on above: 1 Occurrences starting 01/31/2024 until 03/01/2025 [facility] Immunizations Immunization Date Immunization Notes Care Provider Velma wellington 11-01-2024 hepatitis B vaccine, adult dosage Mi Nurse Work Phone: [facility] 09-21-2024 influenza, injectabl e, madin franco canine kidney, preservative free Toshia Wilson MD Work Phone: [facility] 06-14-2024 hepatitis B vaccine, adult dosage Nm Nurse Work Phone: [facility] 06-14-2024 tetanus toxoid, redu rojelio diphtheria toxoid, and acellular pertussis vaccine, adsorbed Mi Nurse Work Phone: [facility] 04-26-2024 hepatitis B vaccine, adult dosage Nm Nurse Work Phone: [facility] 08-23-2023 COVID-19 vaccine, ag e 12+ yr, season ([employer]) Melody Linares BARGEMAN.GEOSPATIAL INTELLIGENCE ANALYST Work Phone: [facility] 08-23-2023 influenza, injectabl e, quadrivalent, contains preservative Melody Cubacalf BARGEMAN.GEOSPATIAL INTELLIGENCE ANALYST Work Phone: [facility] 08-23-2023 influenza virus vaccine, unspecified formulation Shin Hogan MD Work Phone: [facility] 11-11-2021 influenza, injectabl e, quadrivalent, contains preservative Vandana Fleming BARGEMAN.GEOSPATIAL INTELLIGENCE ANALYST Work Phone: [facility] 02-11-2021 influenza, injectabl e, quadrivalent, contains preservative Vandana Fleming BARGEMAN.GEOSPATIAL INTELLIGENCE ANALYST Work Phone: [facility] 06-14-2019 meningococcal B vaccine, recombinant, OMV, adjuvanted Vandana Fleming BARGEMAN.GEOSPATIAL INTELLIGENCE ANALYST Work Phone: [facility] 12-11-2018 influenza, injectabl e, quadrivalent, contains preservative Vandana Fleming BARGEMAN.GEOSPATIAL INTELLIGENCE ANALYST Work Phone: [facility] 09-01-2017 Human Papillomavirus 9-valent vaccine Vandana Fleming BARGEMAN.GEOSPATIAL INTELLIGENCE ANALYST Work Phone: [facility] 09-01-2017 influenza, injectabl e, quadrivalent, contains preservative Vandana Fleming BARGEMAN.GEOSPATIAL INTELLIGENCE ANALYST Work Phone: [facility] 09-15-2015 human papilloma viru s vaccine, quadrivalent Vandana Fleming BARGEMAN.GEOSPATIAL INTELLIGENCE ANALYST Work Phone: [facility] Work Phone: 09-15-2015 influenza, injectabl e, quadrivalent, preservative free Vandana Fleming APRN.GEOSPATIAL INTELLIGENCE ANALYST Work Phone: [facility] Work Phone: 03-11-2014 hepatitis A vaccine, pediatric/adolescent dosage, 2 dose schedule Vandana Fleming APRN.GEOSPATIAL INTELLIGENCE ANALYST Work Phone: [facility] 02-12-2014 human papilloma viru s vaccine, quadrivalent Vandana Fleming APRN.[facility] Work Phone: [facility] 02-12-2014 meningococcal polysaccharide (groups A, C, Y and W-135) diphtheria toxoid conjugate vaccine (MCV4P) Vandana Fleming APRN.[facility] Work Phone: [facility] 02-12-2014 tetanus toxoid, redu rojelio diphtheria toxoid, and acellular pertussis vaccine, adsorbed Vandana Fleming APRN.[facility] Work Phone: [facility] 08-10-2011 influenza virus vaccine, live, attenuated, for intranasal use Vandana Fleming APRN.[facility] Work Phone: [facility] Work Phone: 06-30-2007 diphtheria, tetanus toxoids and acellular pertussis vaccine Vandana Fleming APRN.GEOSPATIAL INTELLIGENCE ANALYST Work Phone: [facility] 06-30-2007 diphtheria, tetanus toxoids and acellular pertussis vaccine, unspecified formulation Toshia Wilson MD Work Phone: [facility] 06-30-2007 hepatitis A vaccine, unspecified formulation Vandana Fleming APRN.[facility] Work Phone: [facility] 06-30-2007 measles, mumps and rubella virus vaccine Vandana Fleming APRN.GEOSPATIAL INTELLIGENCE ANALYST Work Phone: [facility] [facility] 06-30-2007 measles, mumps, rubella, and varicella virus vaccine Toshia Wilson MD Work Phone: [facility] 06-30-2007 poliovirus vaccine, inactivated Vandana Fleming BARGEMAN.GEOSPATIAL INTELLIGENCE ANALYST Work Phone: [facility] 06-30-2007 varicella virus vaccine Vicky Fleming BARGEMAN.GEOSPATIAL INTELLIGENCE ANALYST Work Phone: [facility] 08-17-2004 pneumococcal conjuga te vaccine, 7 valent Vandana Fleming BARGEMAN.GEOSPATIAL INTELLIGENCE ANALYST Work Phone: [facility] 07-19-2003 diphtheria, tetanus toxoids and acellular pertussis vaccine Vandana Fleming BARGEMAN.GEOSPATIAL INTELLIGENCE ANALYST Work Phone: [facility] 07-19-2003 diphtheria, tetanus toxoids and acellular pertussis vaccine, unspecified formulation Toshia Wilson MD Work Phone: [facility] 07-19-2003 haemophilus influenz ae type b conjugate and Hepatitis B vaccine Toshia Wilson MD Work Phone: [facility] 07-19-2003 haemophilus influenz ae type b vaccine, HbOC conjugate Vandana Fleming BARGEMAN.GEOSPATIAL INTELLIGENCE ANALYST Work Phone: [facility] 07-19-2003 hepatitis B vaccine, pediatric or pediatric/adolescent dosage Vandana Fleming BARGEMAN.GEOSPATIAL INTELLIGENCE ANALYST Work Phone: [facility] 07-19-2003 measles, mumps and rubella virus vaccine Vandana Fleming BARGEMAN.GEOSPATIAL INTELLIGENCE ANALYST Work Phone: [facility] 07-19-2003 poliovirus vaccine, inactivated Vandana Fleming BARGEMAN.GEOSPATIAL INTELLIGENCE ANALYST Work Phone: [facility] 07-19-2003 varicella virus vaccine Vicky Fleming BARGEMAN.GEOSPATIAL INTELLIGENCE ANALYST Work Phone: [facility] 07-03-2002 diphtheria, tetanus toxoids and acellular pertussis vaccine Vandana Fleming BARGEMAN.GEOSPATIAL INTELLIGENCE ANALYST Work Phone: [facility] 07-03-2002 diphtheria, tetanus toxoids and acellular pertussis vaccine, unspecified formulation Toshia Wilson MD Work Phone: [facility] 07-03-2002 haemophilus influenz ae type b vaccine, HbOC conjugate Vandana Praisler-Wood BARGEMAN.GEOSPATIAL INTELLIGENCE ANALYST Work Phone: [facility] 07-03-2002 haemophilus influenz ae type b vaccine, PRP-T conjugate Toshia Wilson MD Work Phone: [facility] 07-03-2002 pneumococcal conjuga te vaccine, 7 valent Vandana Praisler-Wood BARGEMAN.GEOSPATIAL INTELLIGENCE ANALYST Work Phone: [facility] 05-02-2002 diphtheria, tetanus toxoids and acellular pertussis vaccine Vandana Praisler-Wood BARGEMAN.GEOSPATIAL INTELLIGENCE ANALYST Work Phone: [facility] 05-02-2002 diphtheria, tetanus toxoids and acellular pertussis vaccine, unspecified formulation Toshia Wilson MD Work Phone: [facility] 05-02-2002 haemophilus influenz ae type b vaccine, HbOC conjugate Vandana Praisler-Wood BARGEMAN.GEOSPATIAL INTELLIGENCE ANALYST Work Phone: [facility] 05-02-2002 haemophilus influenz ae type b vaccine, PRP-T conjugate Toshia Wilson MD Work Phone: [facility] 05-02-2002 pneumococcal conjuga te vaccine, 7 valent Vandana Praisler-Wood BARGEMAN.GEOSPATIAL INTELLIGENCE ANALYST Work Phone: [facility] 05-02-2002 poliovirus vaccine, inactivated Vandana Praisler-Wood BARGEMAN.GEOSPATIAL INTELLIGENCE ANALYST Work Phone: [facility] 03-07-2002 diphtheria, tetanus toxoids and acellular pertussis vaccine Vandana Praisler-Wood BARGEMAN.GEOSPATIAL INTELLIGENCE ANALYST Work Phone: [facility] 03-07-2002 diphtheria, tetanus toxoids and acellular pertussis vaccine, unspecified formulation Toshia Wilson MD Work Phone: [facility] 03-07-2002 haemophilus influenz ae type b conjugate and Hepatitis B vaccine Toshia Wilson MD Work Phone: [facility] 03-07-2002 haemophilus influenz ae type b vaccine, HbOC conjugate Vandana Praisler-Wood BARGEMAN.GEOSPATIAL INTELLIGENCE ANALYST Work Phone: [facility] 03-07-2002 hepatitis B vaccine, pediatric or pediatric/adolescent dosage Vandanacarlota Fleming BARGEMAN.GEOSPATIAL INTELLIGENCE ANALYST Work Phone: [facility] 03-07-2002 pneumococcal conjuga te vaccine, 7 valent Vandana Fleming BARGEMAN.GEOSPATIAL INTELLIGENCE ANALYST Work Phone: [facility] 03-07-2002 poliovirus vaccine, inactivated Vandana Fleming BARGEMAN.GEOSPATIAL INTELLIGENCE ANALYST Work Phone: [facility] 2001 hepatitis B vaccine, pediatric or pediatric/adolescent dosage Vandana Fleming BARGEMAN.GEOSPATIAL INTELLIGENCE ANALYST Work Phone: [facility] Payers Date Payer Category Payer Self-pay 2022 [place] [facility] [facility] [place] [id number] 2022 Unknown [id number] 2019 Unknown [id number] 2012 Unknown [employer] [id number] 2001 Unknown [id number] Medicaid MEDICAID [id number] Private Health Insurance [id number] Unknown [id number] Unknown [id number] Unknown [id number] Unknown [id number] Unknown [id number] Unknown [id number] Social History Date Type Detail Facility Start: 08-14-2022 End: 01-20-2024 Never smoked tobacco (finding) [facility] Sex Assigned At [facility] Start: 08-14-2022 End: 01-20-2024 Tobacco use and exposure Smokeless tobacco non-user [facility] Start: 08-14-2022 End: 02-11-2025 Alcohol intake Current non-drinker of alcohol (finding) [facility] Start: 02-14-2017 End: 08-14-2022 Tobacco Comment smoke outside [facility] Start: 2001 Sex Assigned At Female C [facility] Start: 11-15-2020 End: 08-19-2022 Exposure to SARS-CoV-2 (event) Not sure [facility] Work Phone: Start: 01-25-2023 Tobacco smoking stat us NJIS Unknown if ever smoked [facility] Start: 12-27-2022 Education 21 [facility] Start: 03-29-2023 End: 01-31-2024 History of Social function [facility] Start: 03-29-2023 End: 01-31-2024 Tobacco use panel [facility] Adult Depression Screening Assessment 6 [facility] Start: 03-24-2021 Gender identity Identifies as female gender (finding) [facility] Start: 03-24-2021 Sexual orientation Heterosexual (indio petersen) [facility] History of tobacco use Passive smoker [facility] NEGATED: Highlighted row [facility] Functional Status Date Assessment Result Facility 04-26-2023 Functional Status Activity Bernice hussein Independent [facility] 04-26-2023 Functional Status Standard Safet y ID band on, Call device within reach, Bed in low position, Wheels locked [facility] 03-24-2015 Are you deaf, or do you have serious difficulty hearing No 03/24/2015 2:25 PM EDT Elis Durham RN No [facility] 03-24-2015 Are you blind, or do you have serious difficulty seeing, even when wearing glasses No 03/24/2015 2:25 PM EDT Elis Durham RN No [facility] 03-24-2015 Do you have serious difficulty walking or climbing stairs No 03/24/2015 2:25 PM EDT Elis Durham RN [facility] 03-24-2015 Do you have difficul ty dressing or bathing No 03/24/2015 2:25 PM EDT Elis Durham RN No [facility] Mental Status Date Assessment Result Facility 04-26-2023 Mental Status Oriented x 4 [facility] 04-26-2023 Mental Status [facility] 01-25-2023 Cognitive function Level Of Cons ciousness Awake;Alert;Appropriate;Fol lows Commands [facility] Work Phone: 03-24-2015 Because of a physica l, mental, or emotional condition, do you have serious difficulty concentrating, remembering, or making decisions No 03/24/2015 2:25 PM EDT Elis Durham RN No [facility] Clinical Notes 05-03-2019 to 02-11-2025 Toshia Wilson MD - 02/11/2025 8:42 AM EDTTelephone Encounter - Kim Kim LPN - 01/31/2025 11:32 AM EDTTelephone Encounter - Kim Kim LPN - 01/31/2025 11:32 AM EDT Note Date & Type Note Facility 02-11-2025 Note HNO ID: [id number] Author: TOSHIA WILSON MD Service: ? Author Type: Physician Type: Progress Notes Filed: 02/11/2025 09:14 Note Text: Andre is a 24 year old who presents for an annual gynecologic exam WITH C/O DISCHARGE AND IRRITATION. Mostly external. Has been trying to eliminate irritants. Has been using bidet and cleaning well. Has been on multiple controls and had side effects. Not sexually active at this time. Still get period: Yes Menses: cycles every 28-30 days and 3-4 days of flow Menstrual flow: Moderate some days heavy, some cramping. Uses midol. Bleeding between periods: No Period symptoms: pms Sexually active: not currently Contraception frequency: Always HPV vaccine: Yes HPV:N/A Last pap smear: 2022 History of abnormal pap: No OB History Gravida0 Para0 Term0 Preterm0 AB0 Living0 SAB0 IAB0 Ectopic0 Multiple0 Live Births0 FAMILY HISTORY Problem Relation Age of Onset Fibromyalgia Mother Psychiatry Mother other (lupus) Mother Reports being on no medications other (MCTD) Mother Reports being on no medications- mixed connective tissue disorder other (Hysterectomy) Mother other (endometriosis) Mother other (anorexia nervosa) Mother since age 12-14yo, hospitalized at age 15yo in [place], struggled all her life, had binge purge type. Weighed 71 lbs when first child born. Mom feels fairly recovered Anxiety disorder Mother Migraines Father Anxiety disorder Sister Depression Sister Post-Traumatic Stress Disorder Sister COPD Maternal Grandmother other (lupus) Maternal Grandmother other (Raynaud's phenomenon) Maternal Grandmother other (thyroid disease) Maternal Grandmother Lung Cancer Maternal Grandmother Mental illness Maternal Grandmother other (esophageal cancer) Maternal Grandfather Cancer Paternal Grandmother Maternal Side other (leukemia) Paternal Grandmother other (Familly History) Paternal Grandmother Skin Pigament other (Bronchitis) Paternal Grandmother needed senior living corticosteroids No Known Problems Paternal Grandfather Diabetes Maternal Aunt other (lupus) Maternal Aunt other (hyperthroidism) Maternal Aunt Leukemia Other Leukemia Other Leukemia Other Psoriasis Other Cancer Other Psoriasis Other SOCIAL HISTORY Social History Tobacco Use Smoking status: Never Passive exposure: Current Smokeless tobacco: Never Tobacco comments: smoke outside Vaping Use Vaping status: Never Used Substance Use Topics Alcohol use: No Drug use: No REVIEW OF SYSTEMS Abdomen: No abdominal pain, nausea, vomiting, diarrhea, or constipation. No bloating, early satiety, indigestion, or increased flatulence. Bladder: No dysuria, gross hematuria, urinary frequency, urinary urgency, or incontinence. Breast: No breast lumps, nipple d/c, overlying skin changes, redness or skin retraction. Allergies and current medication updated:Yes SENSITIVE EXAM: The sensitive examination was discussed with the Patient or Patient's Authorized [place]pine Guide. As applicable, any other physician, advance practice provider, medical student, or other health professional student that will be observing or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 Pain of right hip documented in this encounter [facility] note* Diagnosis Acute right-sided low back pain with right-sided sciatica documented in this encounter [facility]* Diagnosis Chronic nonintractable headache, unspecified headache type documented in this encounter [facility] note* Diagnosis Vaginal discharge- Primary Leukorrhea, not specified as infective PMDD (premenstrual dysphoric disorder) Premenstrual tension syndromes documented in this encounter [facility]* Diagnosis Tongue pain- Primary Glossodynia Pain of toe of left foot Pain in limb documented in this encounter [facility] note* Diagnosis Vaginal irritation- Primary Unspecified noninflammatory disorder of vagina Vaginal discharge Leukorrhea, not specified as infective documented in this encounter [facility]* Diagnosis Vaginal yeast infection- Primary Candidiasis of vulva and vagina documented in this encounter [facility]* Diagnosis Encounter for immunization- Primary Need for other specified prophylactic vaccination against single bacterial disease documented in this encounter [facility] note* Diagnosis Acute midline low back pain with left-sided sciatica- Primary Acute midline low back pain with left-sided sciatica [facility]* Diagnosis Acute midline low back pain with left-sided sciatica documented in this encounter [facility]* Diagnosis Annual physical exam- Primary Routine general medical examination at a health care facility documented [facility] this encounter [facility]* Diagnosis Encounter for gynecological examination (general) (routine) without abnormal findings- Primary Screening for cervical cancer Screening for malignant neoplasm of the cervix Vaginal discharge Leukorrhea, not specified as infective Vaginal irritation Unspecified noninflammatory disorder of vagina Encounter for IUD insertion Encounter for insertion of intrauterine contraceptive device documented in this encounter [facility] for referral (narrative)* Diagnostic Procedure Only (Routine) - Pending Review Specialty Diagnoses / Procedures Referred By Haydee nichols Referred To Contact [facility] Diagnoses Enlarged thyroid Procedures US THYROID/PARATHYROID US SOFT TISSUE HEAD & NECK REAL TIME IMGE DOC Keli Lee APRN.GEOSPATIAL INTELLIGENCE ANALYST [address] [place] [address] [facility] Referral ID Status Reason Start Date Expiration Date Visits Requested Visits Authorized [id number] Pending Review Auto-Generat ed Referral 08/20/2022 09/19/2023 1 1 [facility] for referral (narrative)* Diagnostic Procedure Only (Routine) - Closed Specialty Diagnoses / Procedures Referred By Contac t Referred To Contact [facility] Diagnoses Enlarged thyroid Procedures US THYROID/PARATHYROID US SOFT TISSUE HEAD & NECK REAL TIME IMGE DOC Keli Lee APRN.GEOSPATIAL INTELLIGENCE ANALYST [address] [place] [address] Us Imaging Referral ID Status Reason Start Date Expiration Date V isits Requested Visits Authorized [id number] Closed Auto-Generate d Referral 08/20/2022 09/19/2023 1 1 [facility] for referral (narrative)* Outpatient Procedure (Routine) - Pending Review Specialty Diagnoses / Procedures Referred By Contac t Referred To Contact [facility] Diagnoses Encounter for contraceptive management, unspecified type Nexplanon insertion Procedures NEXPLANON INSERTION ETONOGESTREL IMPLANT SYSTEM INSERT DRUG IMPLANT DEVICE Melody Linares APRN.GEOSPATIAL INTELLIGENCE ANALYST [address] [place] [address] [facility] [address] [place] [address] Referral ID Status Reason Start Date Expiration Date Visits Requested Visits Authorized [id number] Pending Review Auto-Generat ed Referral 09/27/2024 1 1 [facility] for referral (narrative)* Diagnostic Procedure Only (Routine) - Authorized Specialty Diagnoses / Procedures Referred By Contac t Referred To Contact [facility] Diagnoses Enlarged thyroid Procedures US THYROID/PARATHYROID US SOFT TISSUE HEAD & NECK REAL TIME GE Keli Saba APRN.GEOSPATIAL INTELLIGENCE ANALYST [address] [place] [address] [place] [address] Referral ID Status Reason Start Date Expiration Date Visits Requested Visits Authorized [id number] Authorized Auto-Generat ed Referral 01/31/2024 03/01/2025 1 1 [facility] for referral (narrative)* Diagnostic Procedure Only (Routine) - Closed Specialty Diagnoses / Procedures Referred By Contac t Referred To Contact [facility] Diagnoses Elevated bilirubin Procedures US ABD SPLEEN US ABDOMINAL REAL TIME W/IMAGE LIMITED Mere Mckinnon APRN.GEOSPATIAL INTELLIGENCE ANALYST [address] [place] [address] Us Imaging [facility] Referral ID Status Reason Start Date Expiration Date V isits Requested Visits Authorized [id number] Closed Auto-Generate d Referral 03/21/2024 04/20/2025 1 1 [facility] for referral (narrative)* Diagnostic Procedure Only (Routine) - Closed Specialty Diagnoses / Procedures Referred By Contac t Referred To Contact US IMAGING Diagnoses Elevated bilirubin Procedures US ABD SPLEEN US ABDOMINAL REAL TIME W/IMAGE LIMITED Mere Mckinnon APRN.GEOSPATIAL INTELLIGENCE ANALYST [address] [id number] [place] [address] Referral ID Status Reason Start Date Expiration Date V isits Requested Visits Authorized [id number] Closed Auto-Generate d Referral 03/21/2024 04/20/2025 1 1 * Diagnostic Procedure Only (Routine) - Closed Specialty Diagnoses / Procedures Referred By Contac t Referred To Contact US IMAGING Diagnoses Elevated bilirubin Procedures US ABD RIGHT UPPER QUADRANT US ABDOMINAL REAL TIME W/IMAGE LIMITED Mere Mckinnon APRN.GEOSPATIAL INTELLIGENCE ANALYST [address] [place] [address] Us Imaging [facility] Referral ID Status Reason Start Date Expiration Date V isits Requested Visits Authorized [id number] Closed Auto-Generate d Referral 03/21/2024 04/20/2025 1 1 * Consult, Test, Treat (Routine) - Authorized Specialty Diagnoses / Procedures Referred By Contac t Referred To Contact Gastroenterology Diagnoses Nausea Diarrhea, unspecified type Left lower quadrant abdominal pain Procedures CONSULT TO GASTROENTEROLOGY OFFICE/OUTPATIENT [facility] 60 MINUTES eMre Mckinnon APRN.GEOSPATIAL INTELLIGENCE ANALYST [address] [place] [id number] Referral ID Status Reason Start Date Expiration Date Visits Requested Visits Authorized [id number] Authorized PCP Requested Referral 03/21/2024 03/21/2025 1 1 [facility] for referral (narrative)* Diagnostic Procedure Only (Urgent) - Closed Specialty Diagnoses / Procedures Referred By Contac t Referred To Contact XR IMAGING Diagnoses Pain of right hip Procedures XR HIP GENERAL 3V PELV/AP/LAT RIGHT RADEX HIP UNILATERAL WITH PELVIS 2-3 VIEWS Yordy Obrien APRN.GEOSPATIAL INTELLIGENCE ANALYST [address] [place] [address] X[facility] Imaging [facility] Referral ID Status Reason Start Date Expiration Date V isits Requested Visits Authorized [id number] Closed Auto-Generate d Referral 06/26/2024 07/26/2025 1 1 * Diagnostic Procedure Only (Urgent) - Closed Specialty Diagnoses / Procedures Referred By Contac t Referred To Contact XR IMAGING Diagnoses Pain of right hip Procedures XR LUMBAR GENERAL 3V AP/LAT/L5-S1 RADEX SPINE LUMBOSACRAL 2/3 VIEWS Yordy Obrien APRN.GEOSPATIAL INTELLIGENCE ANALYST [address] [place] [address] [place] [address] Referral ID Status Reason Start Date Expiration Date V isits Requested Visits Authorized [id number] Closed Auto-Generate d Referral 06/26/2024 07/26/2025 1 1 [facility] for referral (narrative)* Diagnostic Procedure Only (Urgent) - Closed Specialty Diagnoses / Procedures Referred By Contac t Referred To Contact XR IMAGING Diagnoses Pain of right hip Procedures XR HIP GENERAL 3V PELV/AP/LAT RIGHT RADEX HIP UNILATERAL WITH PELVIS 2-3 VIEWS Yordy Obrien APRN.GEOSPATIAL INTELLIGENCE ANALYST [address] [place] [address] [place] [address] Referral ID Status Reason Start Date Expiration Date V isits Requested Visits Authorized [id number] Closed Auto-Generate d Referral 06/26/2024 07/26/2025 1 1 * Diagnostic Procedure Only (Urgent) - Closed Specialty Diagnoses / Procedures Referred By Contac t Referred To Contact XR IMAGING Diagnoses Pain of right hip Procedures XR LUMBAR GENERAL 3V AP/LAT/L5-S1 RADEX SPINE LUMBOSACRAL 2/3 VIEWS Yordy Obrien APRN.GEOSPATIAL INTELLIGENCE ANALYST [address] [place] [address] [place] [address] Referral ID Status Reason Start Date Expiration Date V isits Requested Visits Authorized [id number] Closed Auto-Generate d Referral 06/26/2024 07/26/2025 1 1 [facility] for visit Narrative* Diagnostic Procedure Only (Urgent) - Closed Specialty Diagnoses / Procedures Referred By Contac t Referred To Contact XR IMAGING Diagnoses Pain of right hip Procedures XR LUMBAR GENERAL 3V AP/LAT/L5-S1 RADEX SPINE LUMBOSACRAL 2/3 VIEWS Yordy Obrien APRN.GEOSPATIAL INTELLIGENCE ANALYST [address] [place] [address] [place] [address] Referral ID Status Reason Start Date Expiration Date V isits Requested Visits Authorized [id number] Closed Auto-Generate d Referral 06/26/2024 07/26/2025 1 1 [facility] Diagnostic Procedure Only (Urgent) - Closed Specialty Diagnoses / Procedures Referred By Contac t Referred To Contact XR IMAGING Diagnoses Acute midline low back pain with left-sided sciatica Procedures XR LUMBAR GENERAL 3V AP/LAT/L5-S1 RADEX SPINE LUMBOSACRAL 2/3 VIEWS Omi Parker MD [address] [place] [address] Phone: tel: fax: [place] [address] Referral ID Status Reason Start Date Expiration Date V isits Requested Visits Authorized [id number] Closed Auto-Generate d Referral 12/27/2024 01/26/2026 1 1 [facility] Summary Purpose Family History Relationship Condition Age at Onset Recorded Date/T javier Not Specified Arthritis Unknown Malignant neoplasm Unknown Hypertension Unknown Disorder of thyroid Unknown Advance Directives Advance Directive Response Recorded Date/ Time Living Will No January 25, 2023 10:01am Power of Legal Advisor No January 25 10:01am Health Concerns Infection Onset Date Last Indicated Resolved Time COVID-19 Rule-Out 08/14/2022 08/14/2022 Chief Complaint and Reason for Visit Chief Complaint MIGRAINE Additional Source Comments INFORMATION SOURCE (unrecogn ized section and content) DATE CREATED AUTHOR 09/12/2018 [facility] DATE CREATED AUTHOR AUTHOR'S ORGANIZ ATION 11/05/2020 [facility] DATE CREATED AUTHOR AUTHOR'S ORGANIZ ATION 01/16/2022 [facility] ([place]) DATE CREATED AUTHOR AUTHOR'S ORGANIZ ATION 02/19/2025 [facility] DATE CREATED AUTHOR AUTHOR'S ORGANIZ ATION 03/25/2025 [facility] Source Comments (unrecognize d section and content) In the event this informatio n is protected by the Federal Confidentiality of Alcohol and Drug Abuse Patient Records regulations: The Federal rules restrict any use of the information to criminally investigate or prosecute any alcohol or drug abuse patient.[facility] the event this information is protected by the Federal Confidentiality of Alcohol and Drug Abuse Patient Records regulations: The Federal rules restrict any use of the information to criminally investigate or prosecute any alcohol or drug abuse patient.[facility] the event this information is protected by the Federal Confidentiality of Alcohol and Drug Abuse Patient Records regulations: The Federal rules restrict any use of the information to criminally investigate or prosecute any alcohol or drug abuse patient.[facility] the event this information is protected by the Federal Confidentiality of Alcohol and Drug Abuse Patient Records regulations: The Federal rules restrict any use of the information to criminally investigate or prosecute any alcohol or drug abuse patient.[facility] Center[facility] the event this information is protected by the Federal Confidentiality of Alcohol and Drug Abuse Patient Records regulations: The Federal rules restrict any use of the information to criminally investigate or prosecute any alcohol or drug abuse patient.[facility] Center[facility] the event this information is protected by the Federal Confidentiality of Alcohol and Drug Abuse Patient Records regulations: The Federal rules restrict any use of the information to criminally investigate or prosecute any alcohol or drug abuse patient.[facility] Center[facility] the event this information is protected by the Federal Confidentiality of Alcohol and Drug Abuse Patient Records regulations: The Federal rules restrict any use of the information to criminally investigate or prosecute any alcohol or drug abuse patient.[facility] Center[facility] the event this information is protected by the Federal Confidentiality of Alcohol and Drug Abuse Patient Records regulations: The Federal rules restrict any use of the information to criminally investigate or prosecute any alcohol or drug abuse patient.[facility] Center[facility] the event this information is protected by the Federal Confidentiality of Alcohol and Drug Abuse Patient Records regulations: The Federal rules restrict any use of the information to criminally investigate or prosecute any alcohol or drug abuse patient.[facility] CenterIn the event this information is protected by the Federal Confidentiality of Alcohol and Drug Abuse Patient Records regulations: The Federal rules restrict any use of the information to criminally investigate or prosecute any alcohol or drug abuse patient.[facility] CenterIn the event this information is protected by the Federal Confidentiality of Alcohol and Drug Abuse Patient Records regulations: The Federal rules restrict any use of the information to criminally investigate or prosecute any alcohol or drug abuse patient.[facility] CenterIn the event this information is protected by the Federal Confidentiality of Alcohol and Drug Abuse Patient Records regulations: The Federal rules restrict any use of the information to criminally investigate or prosecute any alcohol or drug abuse patient.[facility] CenterIn the event this information is protected by the Federal Confidentiality of Alcohol and Drug Abuse Patient Records regulations: The Federal rules restrict any use of the information to criminally investigate or prosecute any alcohol or drug abuse patient.[facility] CenterIn the event this information is protected by the Federal Confidentiality of Alcohol and Drug Abuse Patient Records regulations: The Federal rules restrict any use of the information to criminally investigate or prosecute any alcohol or drug abuse patient.[facility] CenterIn the event this information is protected by the Federal Confidentiality of Alcohol and Drug Abuse Patient Records regulations: The Federal rules restrict any use of the information to criminally investigate or prosecute any alcohol or drug abuse patient.[facility] CenterIn the event this information is protected by the Federal Confidentiality of Alcohol and Drug Abuse Patient Records regulations: The Federal rules restrict any use of the information to criminally investigate or prosecute any alcohol or drug abuse patient.[facility] CenterIn the event this information is protected by the Federal Confidentiality of Alcohol and Drug Abuse Patient Records regulations: The Federal rules restrict any use of the information to criminally investigate or prosecute any alcohol or drug abuse patient.[facility] CenterIn the event this information is protected by the Federal Confidentiality of Alcohol and Drug Abuse Patient Records regulations: The Federal rules restrict any use of the information to criminally investigate or prosecute any alcohol or drug abuse patient.[facility] CenterIn the event this information is protected by the Federal Confidentiality of Alcohol and Drug Abuse Patient Records regulations: The Federal rules restrict any use of the information to criminally investigate or prosecute any alcohol or drug abuse patient.[facility] CenterIn the event this information is protected by the Federal Confidentiality of Alcohol and Drug Abuse Patient Records regulations: The Federal rules restrict any use of the information to criminally investigate or prosecute any alcohol or drug abuse patient.[facility] the event this information is protected by the Federal Confidentiality of Alcohol and Drug Abuse Patient Records regulations: The Federal rules restrict any use of the information to criminally investigate or prosecute any alcohol or drug abuse patient.[facility] CenterIn the event this information is protected by the Federal Confidentiality of Alcohol and Drug Abuse Patient Records regulations: The Federal rules restrict any use of the information to criminally investigate or prosecute any alcohol or drug abuse patient.[facility] CenterIn the event this information is protected by the Federal Confidentiality of Alcohol and Drug Abuse Patient Records regulations: The Federal rules restrict any use of the information to criminally investigate or prosecute any alcohol or drug abuse patient.[facility] CenterIn the event this information is protected by the Federal Confidentiality of Alcohol and Drug Abuse Patient Records regulations: The Federal rules restrict any use of the information to criminally investigate or prosecute any alcohol or drug abuse patient.[facility] CenterIn the event this information is protected by the Federal Confidentiality of Alcohol and Drug Abuse Patient Records regulations: The Federal rules restrict any use of the information to criminally investigate or prosecute any alcohol or drug abuse patient.[facility] CenterIn the event this information is protected by the Federal Confidentiality of Alcohol and Drug Abuse Patient Records regulations: The Federal rules restrict any use of the information to criminally investigate or prosecute any alcohol or drug abuse patient.[facility] CenterIn the event this information is protected by the Federal Confidentiality of Alcohol and Drug Abuse Patient Records regulations: The Federal rules restrict any use of the information to criminally investigate or prosecute any alcohol or drug abuse patient.[facility] CenterIn the event this information is protected by the Federal Confidentiality of Alcohol and Drug Abuse Patient Records regulations: The Federal rules restrict any use of the information to criminally investigate or prosecute any alcohol or drug abuse patient.[facility] CenterIn the event this information is protected by the Federal Confidentiality of Alcohol and Drug Abuse Patient Records regulations: The Federal rules restrict any use of the information to criminally investigate or prosecute any alcohol or drug abuse patient.[facility] CenterIn the event this information is protected by the Federal Confidentiality of Alcohol and Drug Abuse Patient Records regulations: The Federal rules restrict any use of the information to criminally investigate or prosecute any alcohol or drug abuse patient.[facility] CenterIn the event this information is protected by the Federal Confidentiality of Alcohol and Drug Abuse Patient Records regulations: The Federal rules restrict any use of the information to criminally investigate or prosecute any alcohol or drug abuse patient.[facility] CenterIn the event this information is protected by the Federal Confidentiality of Alcohol and Drug Abuse Patient Records regulations: The Federal rules restrict any use of the information to criminally investigate or prosecute any alcohol or drug abuse patient.[facility] CenterIn the event this information is protected by the Federal Confidentiality of Alcohol and Drug Abuse Patient Records regulations: The Federal rules restrict any use of the information to criminally investigate or prosecute any alcohol or drug abuse patient.[facility] CenterIn the event this information is protected by the Federal Confidentiality of Alcohol and Drug Abuse Patient Records regulations: The Federal rules restrict any use of the information to criminally investigate or prosecute any alcohol or drug abuse patient.[facility] CenterIn the event this information is protected by the Federal Confidentiality of Alcohol and Drug Abuse Patient Records regulations: The Federal rules restrict any use of the information to criminally investigate or prosecute any alcohol or drug abuse patient.[facility] CenterIn the event this information is protected by the Federal Confidentiality of Alcohol and Drug Abuse Patient Records regulations: The Federal rules restrict any use of the information to criminally investigate or prosecute any alcohol or drug abuse patient.[facility] CenterIn the event this information is protected by the Federal Confidentiality of Alcohol and Drug Abuse Patient Records regulations: The Federal rules restrict any use of the information to criminally investigate or prosecute any alcohol or drug abuse patient.[facility] CenterIn the event this information is protected by the Federal Confidentiality of Alcohol and Drug Abuse Patient Records regulations: The Federal rules restrict any use of the information to criminally investigate or prosecute any alcohol or drug abuse patient.[facility] CenterIn the event this information is protected by the Federal Confidentiality of Alcohol and Drug Abuse Patient Records regulations: The Federal rules restrict any use of the information to criminally investigate or prosecute any alcohol or drug abuse patient.[facility] CenterIn the event this information is protected by the Federal Confidentiality of Alcohol and Drug Abuse Patient Records regulations: The Federal rules restrict any use of the information to criminally investigate or prosecute any alcohol or drug abuse patient.[facility] CenterIn the event this information is protected by the Federal Confidentiality of Alcohol and Drug Abuse Patient Records regulations: The Federal rules restrict any use of the information to criminally investigate or prosecute any alcohol or drug abuse patient.[facility] CenterIn the event this information is protected by the Federal Confidentiality of Alcohol and Drug Abuse Patient Records regulations: The Federal rules restrict any use of the information to criminally investigate or prosecute any alcohol or drug abuse patient.[facility] CenterIn the event this information is protected by the Federal Confidentiality of Alcohol and Drug Abuse Patient Records regulations: The Federal rules restrict any use of the information to criminally investigate or prosecute any alcohol or drug abuse patient.[facility] CenterIn the event this information is protected by the Federal Confidentiality of Alcohol and Drug Abuse Patient Records regulations: The Federal rules restrict any use of the information to criminally investigate or prosecute any alcohol or drug abuse patient.[facility] CenterIn the event this information is protected by the Federal Confidentiality of Alcohol and Drug Abuse Patient Records regulations: The Federal rules restrict any use of the information to criminally investigate or prosecute any alcohol or drug abuse patient.[facility] CenterIn the event this information is protected by the Federal Confidentiality of Alcohol and Drug Abuse Patient Records regulations: The Federal rules restrict any use of the information to criminally investigate or prosecute any alcohol or drug abuse patient.[facility] CenterIn the event this information is protected by the Federal Confidentiality of Alcohol and Drug Abuse Patient Records regulations: The Federal rules restrict any use of the information to criminally investigate or prosecute any alcohol or drug abuse patient.[facility] CenterIn the event this information is protected by the Federal Confidentiality of Alcohol and Drug Abuse Patient Records regulations: The Federal rules restrict any use of the information to criminally investigate or prosecute any alcohol or drug abuse patient.[facility] CenterIn the event this information is protected by the Federal Confidentiality of Alcohol and Drug Abuse Patient Records regulations: The Federal rules restrict any use of the information to criminally investigate or prosecute any alcohol or drug abuse patient.[facility] CenterIn the event this information is protected by the Federal Confidentiality of Alcohol and Drug Abuse Patient Records regulations: The Federal rules restrict any use of the information to criminally investigate or prosecute any alcohol or drug abuse patient.[facility] CenterIn the event this information is protected by the Federal Confidentiality of Alcohol and Drug Abuse Patient Records regulations: The Federal rules restrict any use of the information to criminally investigate or prosecute any alcohol or drug abuse patient.[facility] CenterIn the event this information is protected by the Federal Confidentiality of Alcohol and Drug Abuse Patient Records regulations: The Federal rules restrict any use of the information to criminally investigate or prosecute any alcohol or drug abuse patient.[facility] CenterIn the event this information is protected by the Federal Confidentiality of Alcohol and Drug Abuse Patient Records regulations: The Federal rules restrict any use of the information to criminally investigate or prosecute any alcohol or drug abuse patient.[facility] CenterIn the event this information is protected by the Federal Confidentiality of Alcohol and Drug Abuse Patient Records regulations: The Federal rules restrict any use of the information to criminally investigate or prosecute any alcohol or drug abuse patient.[facility] CenterIn the event this information is protected by the Federal Confidentiality of Alcohol and Drug Abuse Patient Records regulations: The Federal rules restrict any use of the information to criminally investigate or prosecute any alcohol or drug abuse patient.[facility] CenterIn the event this information is protected by the Federal Confidentiality of Alcohol and Drug Abuse Patient Records regulations: The Federal rules restrict any use of the information to criminally investigate or prosecute any alcohol or drug abuse patient.[facility] CenterIn the event this information is protected by the Federal Confidentiality of Alcohol and Drug Abuse Patient Records regulations: The Federal rules restrict any use of the information to criminally investigate or prosecute any alcohol or drug abuse patient.[facility] CenterIn the event this information is protected by the Federal Confidentiality of Alcohol and Drug Abuse Patient Records regulations: The Federal rules restrict any use of the information to criminally investigate or prosecute any alcohol or drug abuse patient.[facility] CenterIn the event this information is protected by the Federal Confidentiality of Alcohol and Drug Abuse Patient Records regulations: The Federal rules restrict any use of the information to criminally investigate or prosecute any alcohol or drug abuse patient.[facility] CenterIn the event this information is protected by the Federal Confidentiality of Alcohol and Drug Abuse Patient Records regulations: The Federal rules restrict any use of the information to criminally investigate or prosecute any alcohol or drug abuse patient.[facility] CenterIn the event this information is protected by the Federal Confidentiality of Alcohol and Drug Abuse Patient Records regulations: The Federal rules restrict any use of the information to criminally investigate or prosecute any alcohol or drug abuse patient.[facility] Reason for Visit (unrecogniz ed section and content) Reason Comments Pain, Throat Pain rated 7, x3 day s, mouth pain. Reason Comments Results Reason Comments Mouth/Lip Problem Tongue and throat pa in x5 days Reason Comments Opened In Error Reason Comments Radiology US Specialty Diagnoses / Procedures Referred By Contac t Referred To Contact US IMAGING Diagnoses Enlarged thyroid Procedures US THYROID/PARATHYROID US SOFT TISSUE HEAD & NECK REAL TIME IMGE DOCM PodlogKlei junior BARGEMAN.GEOSPATIAL INTELLIGENCE ANALYST [address] [place] [address] Us Imaging Referral ID Status Reason Start Date Expiration Date V isits Requested Visits Authorized [id number] Closed Auto-Generate d Referral 08/20/2022 09/19/2023 1 1 Reason Comments Physical Reason Comments Refill Request Oral Sores To right upper tooth x1 week Reason Comments Discussion Reason Onset Date Comments Refill Request 04/07/2023 Reason Onset Date Comments Refill Request 06/10/2023 Reason Comments No Show Reason Comments Discuss control Reason Comments Patient Question B/c Reason Comments Ear Problem Right ear pain x 1 w [place] Reason Comments Mouth/Lip Problem Cracking to sides of mouth Reason Comments Yearly Exam Reason Comments Physical Reason Comments Mouth/Lip Problem Seen 01/17/24 for same lip issue, not getting better & seems to be getting worse. Reason Comments Ear Problem Right ear issues x 1 dayStomach issues/pain, diarrhea, cold and hot chills x 1 month Specialty Diagnoses / Procedures Referred By Contac t Referred To Contact US IMAGING Diagnoses Elevated bilirubin Procedures US ABD SPLEEN US ABDOMINAL REAL TIME W/IMAGE LIMITED Mere Mckinnon BARGEMAN.GEOSPATIAL INTELLIGENCE ANALYST [address] [place] [address] [place] [address] Referral ID Status Reason Start Date Expiration Date V isits Requested Visits Authorized [id number] Closed Auto-Generate d Referral 03/21/2024 04/20/2025 1 1 Reason Comments New Patient Hypoalbuminemia Reason Comments Follow Up Reason Comments Patient Update Reason Comments Orders Reason Comments Imm/Inj Reason Comments Vaginal Problem Reason Comments Patient Question Reason Comments problem visitr Reason Comments Trauma Fell out of window o nto cactus, pain and swelling, stabbing in some areas, Pt fell on to R side hit R buttock and leg and lower back, is having pain in areas x 3 days Specialty Diagnoses / Procedures Referred By Contac t Referred To Contact XR IMAGING Diagnoses Pain of right hip Procedures XR HIP GENERAL 3V PELV/AP/LAT RIGHT RADEX HIP UNILATERAL WITH PELVIS 2-3 VIEWS Yordy Obrien, BARGEMAN.GEOSPATIAL INTELLIGENCE ANALYST [address] [place] [address] [place] [address] Referral ID Status Reason Start Date Expiration Date V isits Requested Visits Authorized [id number] Closed Auto-Generate d Referral 06/26/2024 07/26/2025 1 1 Reason Comments New Medication Reason Onset Date Comments Refill Request 06/29/2024 Reason Comments Sore Throat Congestion, pressure in left ear, possible thrush on tongue x 1 day Specialty Diagnoses / Procedures Referred By Haydee nichols Referred To Contact Family Medicine / FAMILY MEDICINE Diagnoses low back pain Procedures NEW LIMITED Marla Kirk PA-C [address] [place] [address] Marla Kirk PA-C [address] [place] [address] Referral ID Status Reason Start Date Expiration Date Visits Re quested Visits Authorized [id number] Closed 12/15/2020 03/16/2021 99 99 Reason Onset Date Comments Refill Request 08/30/2024 Reason Comments Problem Visit Reason Comments Mouth/Lip Problem Tongue discolored or indira/yellow with pain x 2 days; recent vaginal yeast infection difficult to treat with Fluconazole Reason Comments Fall L elobow, low back, L leg pain x1 week, back of L thigh pain possible ACL MCL Reason Comments Yearly Exam Care Teams (unrecognized sec tion and content) Watch [employer] Grinder Relationship Specialty Start Date End Date Shin Hogan MD [address] [place], [place] [id number] PCP - General Family Medicine 11/11/21 Watch Parts Grinder Relationship Specialty Start Date End Date Shin Hogan MD [address] [place], [place] [id number] PCP - General Family Medicine 11/11/21 Watch [employer] Grinder Relationship Specialty Start Date End Date Shin Hogan MD [address] [place], [place] [id number] PCP - General Family Medicine 11/11/21 Watch Parts Grinder Relationship Specialty Start Date End Date Shin Hogan MD [address] [facility] [place] [address] PCP - General Family Medicine 11/11/21 Watch Parts Grinder Relationship Specialty Start Date End Date Shin Hogan MD [address] [facility] [place] [address] PCP - General Family Medicine 11/11/21 Watch Parts Grinder Relationship Specialty Start Date End Date Shin Hogan MD [address] [facility] [place] [address] PCP - General Family Medicine 11/11/21 Watch Parts Grinder Relationship Specialty Start Date End Date Shin Hogan MD [address] [facility] [place] [address] PCP - General Family Medicine 11/11/21 Team Status: Active Member Role Status Dates No Primary Care Physician Primary Care Provider Active Team Status: Inactive Member Role Status Dates Dr. Avelino Pillai , DO Emergency Provider Active No Primary Care Physician Primary Care Provider Active [employer] Grinder Relationship Specialty Start Date End Date Shin Hogan MD [address] [facility] [place] [address] PCP - General Family Medicine 11/11/21 Watch Parts Grinder Relationship Specialty Start Date End Date Shin Hogan MD [address] [facility] [place] [address] PCP - General Family Medicine 11/11/21 Watch Parts Grinder Relationship Specialty Start Date End Date Shin Hogan MD [address] [facility] [place] [address] PCP - General Family Medicine 11/11/21 Watch Parts Grinder Relationship Specialty Start Date End Date Shin Hogan MD [address] [facility] [place] [address] PCP - General Family Medicine 11/11/21 Watch Parts Grinder Relationship Specialty Start Date End Date Shin Hogan MD [address] [facility] [place] [address] PCP - General Family Medicine 11/11/21 Watch Parts Grinder Relationship Specialty Start Date End Date Shin Hogan MD [address] [place] [address] PCP - General Family Medicine 11/11/21 Watch Parts Grinder Relationship Specialty Start Date End Date Shin Hogan MD [address] [place] [address] PCP - General Family Medicine 11/11/21 Watch Parts Grinder Relationship Specialty Start Date End Date Shin Hogan MD [address] [place] [address] PCP - General Family Medicine 11/11/21 Watch Parts Grinder Relationship Specialty Start Date End Date Shin Hogan MD [address] [facility] [place] [address] PCP - General Family Medicine 11/11/21 Watch Parts Grinder Relationship Specialty Start Date End Date Shin Hogan MD [address] [place] [address] PCP - General Family Medicine 11/11/21 Watch Parts Grinder Relationship Specialty Start Date End Date Shin Hogan MD [address] [facility] [place] [address] PCP - General Family Medicine 11/11/21 Watch Parts Grinder Relationship Specialty Start Date End Date Shin Hogan MD [address] [facility] [place] [address] PCP - General Family Medicine 11/11/21 Watch Parts Grinder Relationship Specialty Start Date End Date Shin Hogan MD [address] [facility] [place] [address] PCP - General Family Medicine 11/11/21 Watch Parts Grinder Relationship Specialty Start Date End Date Shin Hogan MD [address] [facility] [place] [address] PCP - General Family Medicine 11/11/21 Watch Parts Grinder Relationship Specialty Start Date End Date Shin Hogan MD [address] [facility] [place] [address] PCP - General Family Medicine 11/11/21 Watch Parts Grinder Relationship Specialty Start Date End Date Shin Hogan MD [address] [facility] [place] [address] PCP - General Family Medicine 11/11/21 Watch Parts Grinder Relationship Specialty Start Date End Date Shin Hogan MD [address] [facility] [place] [address] PCP - General Family Medicine 11/11/21 Watch Parts Grinder Relationship Specialty Start Date End Date Shin Hogan MD [address] [facility] [place] [address] PCP - General Family Medicine 11/11/21 Watch Parts Grinder Relationship Specialty Start Date End Date Shin Hogan MD [address] [facility] [place] [address] PCP - General Family Medicine 11/11/21 Watch Parts Grinder Relationship Specialty Start Date End Date Shin Hogan MD [address] [place] [address] PCP - General Family Medicine 11/11/21 Watch Parts Grinder Relationship Specialty Start Date End Date Shin Hogan MD [address] [place] [address] PCP - General Family Medicine 11/11/21 Watch Parts Grinder Relationship Specialty Start Date End Date Shin Hogan MD [address] [place] [address] PCP - General Family Medicine 11/11/21 Watch Parts Grinder Relationship Specialty Start Date End Date Shin Hogan MD [address] [place] [address] PCP - General Family Medicine 11/11/21 Watch Parts Grinder Relationship Specialty Start Date End Date Shin Hogan MD [address] [place] [address] PCP - General Family Medicine 11/11/21 Watch Parts Grinder Relationship Specialty Start Date End Date Shin Hogan MD [address] [place] [address] PCP - General Family Medicine 11/11/21 Watch Parts Grinder Relationship Specialty Start Date End Date Sabrina Padilla MD [address] [place], [place] [id number] PCP - General Pediatrics 07/09/19 02/10/21 Watch [employer] Grinder Relationship Specialty Start Date End Date Shin Hogan MD [address] [place] [address] PCP - General Family Medicine 11/11/21 PodlogarKeli APRN.GEOSPATIAL INTELLIGENCE ANALYST [address] [place] [address] [facility] 10/20/24 Watch [employer] Grinder Relationship Specialty Start Date End Date Shin Hogan MD [address] [place] [address] PCP - General Family Medicine 11/11/21 PodlogarKeli APRN.GEOSPATIAL INTELLIGENCE ANALYST [address] [place] [address] [facility] 10/20/24 Watch [employer] Grinder Relationship Specialty Start Date End Date Shin Hogan MD [address] [place] [address] PCP - General Family Medicine 11/11/21 PodlogarKeli APRN.GEOSPATIAL INTELLIGENCE ANALYST [address] [place] [address] [facility] 10/20/24 Watch [employer] Grinder Relationship Specialty Start Date End Date Shin Hogan MD [address] [place] [address] PCP - General Family Medicine 11/11/21 Podlogar, BLOSSOM Dickey.GEOSPATIAL INTELLIGENCE ANALYST [address] [place] [address] [facility] 10/20/24 Watch [employer] Grinder Relationship Specialty Start Date End Date Shin Hogan MD [address] [place] [address] PCP - General Family Medicine 11/11/21 PodlogarKeli APRN.GEOSPATIAL INTELLIGENCE ANALYST [address] [place] [address] [facility] 10/20/24 Watch Parts Grinder Relationship Specialty Start Date End Date Shin Hogan MD [address] [place] [address] PCP - General Family Medicine 11/11/21 PodlogarKeli APRN.GEOSPATIAL INTELLIGENCE ANALYST [address] [place] [address] [facility] 10/20/24 Vianey Young APRN.GEOSPATIAL INTELLIGENCE ANALYST [address] [place] [address] [facility] [employer] Gr[employer] Relationship Specialty Start Date End Date Shin Hogan MD [address] [place] [address] PCP - General Family Medicine 11/11/21 PodlogarKeli APRN.GEOSPATIAL INTELLIGENCE ANALYST [address] [place] [address] [facility] 10/20/24 Vianey Young APRN.GEOSPATIAL INTELLIGENCE ANALYST [address] [place] [address] [facility] 01/25/25 Watch Parts Grinder Relationship Specialty Start Date End Date Shin Hogan MD [address] [place] [address] PCP - General [facility] Medicine 11/11/21 Keli Lee APRN.GEOSPATIAL INTELLIGENCE ANALYST [address] [place], [place] [address] [facility] 10/20/24 Vianey Young APRN.GEOSPATIAL INTELLIGENCE ANALYST [address] [place], [place] [address] [facility] 02/04/25 Watch [employer] Grinder Relationship Specialty Start Date End Date Shin Hogan MD [address] [place], [place] [id number] PCP - General [facility] 11/11/21 MerlenelogKeli junior APRN.GEOSPATIAL INTELLIGENCE ANALYST [address] [place], [place] [address] [facility] 10/20/24 Vianey Young APRN.GEOSPATIAL INTELLIGENCE ANALYST [address] [place], [place] [id number] [facility] 02/04/25 03/31/25 Goals (unrecognized section and content) Goals may be documented in a n alternate section FOR RECORDS PERTAINING TO PATIENTS WHO ARE OR HAVE BEEN ENROLLED IN A CHEMICAL DEPENDENCY/SUBSTANCEABUSE PROGRAM, SOME INFORMATION MAY BE OMITTED. This clinical summary was aggregated from multiple sources. Caution should be exercised in using it in the provision of clinical care. This summary normalizes information from multiple sources, and as a consequence, information in this document may materially change the coding, format and clinical context of patient data. In addition, data may be omitted in some cases. CLINICAL DECISIONS SHOULD BE BASED ON THE PRIMARY CLINICAL RECORDS. [employer] provides no warranty or guarantee of the accuracy or completeness of information in this document.
[2025-04-20] MEDS: DiphenhydrAMINE 50 MG/ML Syringe 25 MG IV (22:59)
[2025-04-20] MEDS: Metoclopramide 10 MG/2 ML Vial 5 MG IV (22:59)
[2025-04-20] MEDS: 0.9% Normal Saline (1000mL) 1,000 ML 999 ML IV (23:00)
[2025-04-20 23:30] VITALS: BP 122/81; PULSE 65; RESP 18; O2SAT 100
[2025-04-21 00:44] VITALS: BP 122/71; PULSE 84; RESP 18; TEMP 36.6; O2SAT 99
== END 2025-04-21 00:50 | disposition home or self-care (01) ==
PROVIDERS: Emergency Provider Emergency Medicine; PCP Nurse Practitioner Primary Care; Referring Provider Emergency Medicine; Visit Provider Emergency Medicine
DX: R55 Syncope and collapse (principal); G43.909 Migraine, unspecified, not intractable, without status migrainosus; S90.31XA Contusion of right foot, initial encounter; W50.0XXA Accidental hit or strike by another person, initial encounter
CPT/HCPCS: 70496; 70498; 73630; 80048; 85025; 85610; 85730; 96361; 96374; 96375; 99284; Q9967; A4216